=== PATIENT | male | born 1960 | race Caucasian/White ===

== ENCOUNTER 2024-11-28 16:33 | Inpatient (IN) | payer MEDICARE, MEDICAID, SELFPAY ==
[2024-11-28] VITALS (29 sets, daily range): BP systolic 60–162; BP diastolic 35–92; PULSE 77–140; RESP 9–24; TEMP 34.9–39; O2SAT 94–100; BMI 20.2
--- NOTE | ~2024-11-28 | CT_ITS ---
CLINICAL HISTORY: unresponsive CT head without contrast Comparison: None provided Findings: No intra-axial mass, midline shift, hydrocephalus, or acute hemorrhage. Age appropriate cerebral volume loss. Patchy low-density within the periventricular and subcortical white matter. The visualized paranasal sinuses and mastoid air cells are normal. The orbits are within normal limits. There is no acute fracture. IMPRESSION: 1. No acute intracranial findings. This document has been electronically signed by: Mc Miller MD on 11/28/2024 19:47:57
--- NOTE | ~2024-11-28 | XR_ITS ---
CLINICAL HISTORY: Postictal Chest radiograph, 1 view Comparison: CR - XR CHEST 1V - 11/28/24 17:50 EDT Findings: The cardiomediastinal silhouette is not enlarged. Pulmonary vascularity is mildly prominent. The bilateral perihilar and right basilar opacities have resolved. No focal consolidation or pleural effusion. No pneumothorax. The right central line and endotracheal tube have been removed. IMPRESSION: Mild pulmonary vascular congestion without focal consolidation. This document has been electronically signed by: Esteban Hitchcock DO on 12/08/2024 12:57:50
--- NOTE | ~2024-11-28 | XR_ITS ---
CLINICAL HISTORY: central line 1 view chest x-ray Comparison: CR - XR CHEST 1V - 11/28/24 16:56 EDT Findings: Right-sided central venous catheter, tip of which is in the mid SVC. ETT tip is 73 mm above the mag. Mild diffuse bilateral perihilar reticulonodular opacity. Normal size heart. No acute fracture. IMPRESSION: Mild atypical pneumonia. This document has been electronically signed by: Mc Miller MD on 11/28/2024 18:12:23
--- NOTE | ~2024-11-28 | CT_ITS ---
CLINICAL HISTORY: Seizure dis CT head without contrast Comparison: CT/SR - CT HEAD/BRAIN WO IV CON - 11/28/24 18:57 EDT Findings: No acute intracranial hemorrhage or midline shift. The mae-white matter differentiation is maintained. Bilateral carotid siphon and vertebral artery calcifications. Mild generalized cerebral involutional change with similar relative colpocephaly. Mild burden chronic small-vessel white matter ischemic change. The paranasal sinuses and mastoid air cells are clear. Left worse than right external auditory canal cerumen/debris. The calvarium is intact. IMPRESSION: No acute intracranial findings. This document has been electronically signed by: Esteban Hitchcock DO on 12/08/2024 13:06:11
--- NOTE | ~2024-11-28 | XR_ITS ---
CLINICAL HISTORY: Pneumonia 1 view chest x-ray Comparison: CR - XR CHEST 1V - 11/28/24 17:50 EDT Findings: ETT tip is 8 cm above the mag. Mild diffuse perihilar reticulonodular opacity. Normal size heart. No acute fracture. IMPRESSION: 1. High ETT. 2. Mild atypical pneumonia. This document has been electronically signed by: Mc Miller MD on 11/28/2024 18:13:28
--- NOTE | ~2024-11-28 | IR_ITS ---
CLINICAL HISTORY: IV antibiotics PROCEDURES: 1. Real-time ultrasound-guided access into the left basilic vein after documentation of selected vessel patency, and permanent imaging storing in the patient record. 2. Placement of a 5 fr 15 cm, dual lumen midline CLINICIANS: Jonas Barreto NP MEDICATIONS: -Lidocaine 1% 2 mL SQ. -Antibiotics: None. Complications: None. Estimated blood loss: <5 ml Specimens: None. Contrast: None. Fluoroscopy time: 0.5 min Procedure note: The procedure, risks, benefits, and alternatives were carefully explained to the patient and written informed consent was obtained. The patient was placed supine on the fluoroscopy table. A timeout was performed. The left arm was prepped and draped in usual sterile fashion. Using ultrasound and fluoroscopic guidance, venous access was achieved into the basilic vein with a micropuncture set. A peel-away sheath was advanced over the wire. The 0.018 inch wire was advanced into the subclavian vein. A 5 fr, 15 cm, dual lumen midline was advanced over the wire, with its tip in the axilla. The wire was removed. The catheter was tested and secured with a StatLock dressing. A permanent fluoroscopic image was saved to PACS. The patient was stable after the procedure and was transferred to the floor. FINDINGS: 1. Patent left basilic vein 2. Placement of a 5 fr 15 cm, dual lumen midline IR/IR midline placement IMPRESSION: Placement of a 5 fr 15 cm, dual lumen midline PLAN: -The catheter may be used immediately. This procedure was performed by Jonas Barreto NP, and directly supervised by Jassi Ashraf M.D. Electronically signed by: Jassi Ashraf MD 12/10/2024 05:07 PM EDT Workstation: [id number]
--- NOTE | ~2024-11-28 | CT_ITS ---
CLINICAL HISTORY: ?pneumonia CT chest without contrast Comparison: None provided Findings: The heart size is normal. Calcification of the coronary vasculature. Thyroid is not seen. Moderate multifocal patchy bilateral lower lobe predominant airspace opacity. Scattered ill-defined nodular densities. For example, within the right upper lobe anteriorly there is a 5 mm nodule (image 70). The upper abdomen is unremarkable. Severe acute on chronic appearing T8 compression fracture. IMPRESSION: 1. Bilateral pneumonia. 2. Multifocal nodular densities, possibly indicating focal pneumonitis. Follow up chest CT in 3 months is recommended to ensure resolution and exclude underlying malignancy. 3. Coronary artery disease. 4. T8 compression fracture as above. This document has been electronically signed by: Mc Miller MD on 11/28/2024 19:52:09
--- NOTE | ~2024-11-28 | CT_ITS ---
CLINICAL HISTORY: sepsis CT abdomen and pelvis without contrast Comparison: None provided Findings: Bilateral lower lobe airspace disease. Calcification of the coronary vasculature. Gallbladder is within normal limits. Moderate bilateral renal atrophy. Mild bilateral hydronephrosis and ureteral dilatation. No urolithiasis. Solid organs are otherwise within normal limits. No bowel obstruction, pneumoperitoneum, or pneumatosis. Heaton catheter is present. Appendix is distended measuring 13 mm without surrounding fat stranding. The bones are intact. IMPRESSION: 1. Dilated appendix without surrounding fat stranding. Findings could indicate atypical appearance of acute appendicitis versus appendiceal mucocele. 2. Bilateral hydronephrosis and ureteral dilatation without urinary tract calcification. Urologic consultation recommended. 3. Bibasilar pneumonia. This document has been electronically signed by: Mc Miller MD on 11/28/2024 19:54:20
[2024-11-28] MEDS: SODIUM CHLORIDE 1974 ML IV (16:39)
[2024-11-28] MEDS: Ketamine HCl/NS 50 MG/5 ML SYRINGE 100 MG IVPUSH (16:41)
[2024-11-28 16:43] LABS: Glucose, Whole Blood 144 mg/dL (60-115)
--- NOTE | 2024-11-28 16:45 | PC.NURSE ---
Addendum entered by Adele Bailey RN 11/28/24 18:28: vent settings on acvc 24/360/50 100% oxygen and 13 of peep Original Note: pt intubated with at 7.5mm et tube and 24 at the lip current bp 81/42, hr 130 r 22 96% while being bagged
[2024-11-28] MEDS: fentaNYL citrate/NS 1,000 MCG/100 ML PLAST..BAG 5 MCG IVCONT (17:01)
--- NOTE | 2024-11-28 17:16 | ED.SOB ---
HPI - SOB/Dyspnea General Chief Complaint: Dyspnea Stated Complaint: 70/40 [place] Unresponsive GCS $ Time Seen by Provider: 11/28/24 16:46 Source: EMS Mode of arrival: EMS History of Present Illness HPI Narrative: This is 64 years old the patient brought in in acute respiratory distress from the alf unable to give any history he was hypotensive with a blood pressure 63/36 febrile and tachypneic he was intubated at arrival with RS Melanie. Looking through the medical record at the alf he has a history of UTI history of COPD history of schizoaffective disorder history of adrenal insufficiency MD elicited complaint: shortness of breath Pertinent past history: COPD Onset (ago): hour(s) (1) Timing: constant Severity: severe Exacerbating factors: nothing Relieving factors: nothing Known history of: COPD Related Data Home Medications ?Medication ?Instructions ?Recorded ?Confirmed acetaminophen 325 mg rectal 325 mg KS Q4H PRN Constipation 11/28/24 11/28/24 suppository acetaminophen 325 mg tablet 975 mg PO Q6H PRN Pain 11/28/24 11/28/24 albuterol sulfate 90 mcg/actuation 2 puff inhalation Q6H PRN 11/28/24 11/28/24 aerosol inhaler (Ventolin HFA) Shortness Of Breath Or Wheezing aspirin 81 mg tablet,delayed 81 mg PO DAILY 11/28/24 11/28/24 release azithromycin 250 mg tablet 250 mg PO DAILY 11/28/24 11/28/24 azithromycin 250 mg tablet 500 mg PO DAILY 11/28/24 11/28/24 benztropine 0.5 mg tablet 0.5 mg PO BID 11/28/24 11/28/24 bisacodyl 10 mg rectal suppository 10 mg KS DAILY PRN Constipation 11/28/24 11/28/24 ceftriaxone 1 gram solution for 1 g IM DAILY 11/28/24 11/28/24 injection divalproex 500 mg tablet,delayed 1,000 mg PO BID 11/28/24 11/28/24 release doxycycline hyclate 100 mg capsule 100 mg PO BID 11/28/24 11/28/24 famotidine 20 mg tablet 20 mg PO DAILY 11/28/24 11/28/24 haloperidol 5 mg tablet 15 mg PO TID 11/28/24 11/28/24 hydrocortisone 5 mg tablet 15 mg PO BEDTIME 11/28/24 11/28/24 hydrocortisone 5 mg tablet 15 mg PO DAILY 11/28/24 11/28/24 ipratropium 0.5 mg-albuterol 3 mg 3 ml inhalation Q6H PRN Shortness 11/28/24 11/28/24 (2.5 mg base)/3 mL nebulization Of Breath Or Wheezing soln levothyroxine 150 mcg tablet 150 mcg PO DAILY@0600 11/28/24 11/28/24 liothyronine 5 mcg tablet 5 mcg PO DAILY 11/28/24 11/28/24 lorazepam 0.5 mg tablet 0.5 mg PO TID 11/28/24 11/28/24 magnesium hydroxide 400 mg/5 mL 30 ml PO DAILY PRN Constipation 11/28/24 11/28/24 oral suspension (Milk of Magnesia) naloxone 0.4 mg/mL injection 0.4 mg subcut Q2M PRN Opiate 11/28/24 11/28/24 solution Reversal naloxone 4 mg/actuation nasal spray 4 mg intranasal Q3M PRN Opiate 11/28/24 11/28/24 Reversal simvastatin 5 mg tablet 5 mg PO BEDTIME 11/28/24 11/28/24 sodium phosphates 19 gram-7 118 ml KS DAILY PRN Constipation 11/28/24 11/28/24 gram/118 mL enema (Fleet Enema) thiamine HCl (vitamin B1) 100 mg 100 mg PO DAILY 11/28/24 11/28/24 tablet trazodone 50 mg tablet 25 mg PO BID 11/28/24 11/28/24 Allergies Allergy/AdvReac Type Severity Reaction Status Date / Time amprenavir Allergy Unknown Verified 11/28/24 16:55 cephaloridine Allergy Unknown Verified 11/28/24 16:55 clozapine Allergy Unknown Verified 11/28/24 16:55 Penicillins Allergy Unknown Verified 11/28/24 16:55 Phenothiazines Allergy Unknown Verified 11/28/24 16:55 Sulfa (Sulfonamide Allergy Unknown Verified 11/28/24 16:55 Antibiotics) Review of Systems Review of Systems: Yes Unobtainable due to mental condition PMFSH Past Medical History PMFSH Narrative: History of COPD urinary tract infection chronic kidney disease schizoaffective disorder Social History Social History Household Members: Other Housing: Group Home Do you presently have visiting nurse or other home services: Yes Patient Tobacco Use Status: Tobacco use Unknown Physical Exam Exam: Exam: Patient is in severe respiratory distress Vital Signs: Vital Signs: Last Vital Signs Temp 99.0 F 11/29/24 05:53 Pulse 63 11/29/24 05:53 Resp 24 H 11/29/24 05:53 BP 116/54 L 11/29/24 05:53 Pulse Ox 93 11/29/24 05:53 O2 Del Method Mechanical Ventil ation 11/29/24 05:53 O2 Flow Rate 100 11/28/24 18:30 FiO2 24 11/29/24 05:53 BMI result Body Mass Index 20.2 Const: General: other (Respiratory distress) HEENT: Head: Yes normal to inspection General nose exam: Normal external nose present Mouth: Normal oral and palatal mucosa present Neck: Neck: Yes normal visual inspection Chest: Chest palpation & inspection: normal inspection of the chest Resp: Effort & Inspection: abnormal respiratory pattern Auscultation: rhonchi Cardio: Other: Tachycardic GI: Inspection: Yes normal to inspection Neuro: Other: unresponsive Course Reevaluation(s) Reevaluation #1: focus sepsis reexam done COr RRR,Lungs decrease breath sound,decrease capillary refill.Remain on levophed Pt was seen by tree and shrub worker in ED Time: 17:50 Medications Administered Generic Name Dose Route Start Last Admin Trade Name Freq PRN Reason Stop Dose Admin Famotidine 20 mg 11/28/24 21:00 11/28/24 20:46 Famotidine/Pf 20 Mg/2 Ml Vial IVPUSH 20 mg BID NIDIA Administration Heparin Sodium (Porcine) 5,000 unit 11/28/24 17:30 11/29/24 00:54 Heparin Sodium,Porcine 5,000 Unit/Ml Vial SUBCUT 5,000 unit Q8H NIDIA Administration Hydrocortisone Sodium Succinate 100 mg 11/28/24 17:45 11/29/24 00:54 Hydrocortisone Sod Succ/Pf 100 Mg Vial IVPUSH 100 mg Q8H NIDIA Administration Fentanyl 1,000 mcg in 100 mls @ 0 mls/hr 11/28/24 17:00 11/29/24 04:15 Sublimaze/Ns IVCONT 75 mcg/hr .Q0M NIDIA 7.5 mls/hr Protocol Titration Per Protocol Ketamine HCl 500 mg/ Sodium 255 mls @ 13.423 mls/hr 11/28/24 17:45 11/28/24 20:56 Chloride IVCONT 0.4 mg/kg/hr .Q19H NIDIA 13.42 mls/hr Protocol Infusion 0.4 MG/KG/HR Norepinephrine Bitartrate 8 mg in 250 mls @ 0 mls/hr 11/28/24 17:45 11/29/24 04:30 Levophed IVCONT 0.01 mcg/kg/min .Q0M NIDIA 1.23 mls/hr Protocol Titration Per Protocol Lactated Ringer's 1,000 mls @ 100 mls/hr 11/28/24 20:15 11/29/24 05:15 Lr IVCONT 100 mls/hr .Q10H NIDIA Administration Discontinued Medications Generic Name Dose Route Start Last Admin Trade Name Freq PRN Reason Stop Dose Admin Fentanyl 100 mcg 11/28/24 16:52 11/28/24 16:53 Fentanyl Citrate/Pf 100 Mcg/2 Ml Vial IVPUSH 11/28/24 16:53 100 mcg ONCE ONE Administration Protocol Hydrocortisone Sodium Succinate 100 mg 11/28/24 17:18 11/28/24 17:27 Hydrocortisone Sod Succ/Pf 100 Mg Vial IVPUSH 11/28/24 17:19 100 mg ONCE ONE Administration Sodium Chloride 1,974 mls @ 1,974 mls/hr 11/28/24 16:56 11/28/24 18:01 Ns 30 ml/kg infuse over 1 hr (1974 ml) 11/28/24 17:55 Infused IV Infusion .Q1H STA Ketamine HCl 100 mg 11/28/24 18:03 11/28/24 16:41 Ketamine Hcl/Ns 50 Mg/5 Ml Syringe IVPUSH 11/28/24 18:04 100 mg ONCE ONE Administration Meropenem 1 gm 11/28/24 16:56 11/28/24 17:10 Meropenem 1 Gm Vial IVPUSH 11/28/24 16:57 1 gm ONCE ONE Administration Meropenem 500 mg 11/29/24 02:00 11/29/24 01:41 Meropenem 500 Mg Vial IVPUSH 11/29/24 02:01 500 mg Q8H NIDIA Administration Midazolam HCl 4 mg 11/28/24 18:03 11/28/24 17:34 Midazolam Hcl 2 Mg/2 Ml Vial IVPUSH 11/28/24 18:04 4 mg ONCE ONE Administration Rocuronium [place] 50 mg 11/28/24 18:03 11/28/24 17:03 Rocuronium [place] 50 Mg/5 Ml Vial IVPUSH 11/28/24 18:04 50 mg ONCE ONE Administration Succinylcholine Chloride 100 mg 11/28/24 18:03 11/28/24 16:42 Succinylcholine Chloride 200 Mg/10 Ml Vial IVPUSH 11/28/24 18:04 100 mg ONCE ONE Administration Medical Decision Making Medical Decision Making [facility] Narrative: Patient was intubated out of the arrival septic workup was started IV antibiotic and administer IV cortisone given fluid resuscitation started Differential Diagnosis Differential Diagnoses: The differential diagnosis associated with the presentation includes Pneumonia/sepsis/UTI Admission/Observation Consideration of admission/observation: Escalation of care including admission/observation considered Consult Healthcare Provider ICU attending Lab Data [facility] Lab Attestation statement: I reviewed the patient's lab results. 11/29/24 04:13 11/29/24 04:13 Labs: Lab Results 11/28/24 11/28/24 11/28/24 Range/Units 16:39 17:07 17:11 WBC 19.7 H (4.8-10.8) X10*3/uL RBC 3.72 L (4.60-5.80) X10*6/uL Hgb 10.5 L (14.0-18.0) g/dl Hct 34.2 L (42.0-52.0) % MCV 91.9 (80.0-98.0) fL MCH 28.2 (27.0-33.0) pg MCHC 30.7 L (31.0-36.0) g/dl RDW 17.6 H (11.0-16.0) % Plt Count 326 (160-400) X10*3/uL MPV 9.4 (9.4-12.4) fL Immature Gran % (Auto) 0.6 H (0.0-0.4) % Neut % (Auto) 76.7 H (45-73) % Lymph % (Auto) 10.7 L (20-40) % [place] % (Auto) 11.2 H (2-11) % Eos % (Auto) 0.2 (0-4) % Baso % (Auto) 0.6 (0-2) % Lymph # (Auto) 2.1 (1.2-4.9) X10*3/uL [place] # (Auto) 2.2 H (0.1-1.2) X10*3/uL Eos # (Auto) 0.0 (0.0-0.4) X10*3/uL Baso # (Auto) 0.1 (0.0-0.2) X10*3/uL Abs Immat Gran (auto) 0.12 H (0.00-0.03) X10*3/uL Absolute Neuts (auto) 15.1 H (2.0-8.3) x10*3/uL Absolute Nucleated RBC 0.000 (0.0-0.012) X10*3/uL Nucleated RBC % (auto) 0.0 (0.0-0.2) /100WBC O2 Saturation % ABG pH at Pt Temp (7.35-7.45) ABG pCO2 at Pt Temp (32-45) mmHg ABG pO2 at Pt Temp (83-108) mmHg ABG HCO3 (22-26) mmol/L ABG Base Excess (Actual) mmol/L Sodium 142 (135-145) mmol/L Potassium 5.3 H (3.3-5.1) mmol/L Chloride 107 (96-108) mmol/L Carbon Dioxide 20 L (22-29) mmol/L Anion Gap 20 (12-20) BUN 41 H (9-16) mg/dL Creatinine 2.45 H (0.5-1.4) mg/dL Estim Creat Clear Calc 27.9 Estimated GFR 27 POC Glucose 144 H (60-115) mg/dL Random Glucose 132 H (60-115) mg/dL Lactic Acid 2.7 H* (0.5-2.0) mmol/L Calcium 8.6 (8.4-10.2) mg/dL Phosphorus 5.2 H (2.7-4.5) mg/dL Total Bilirubin 0.4 (0.0-1.0) mg/dL AST 50 H (5-37) U/L ALT 8 (0-40) U/L Alkaline Phosphatase 69 (39-117) U/L Troponin I High Sens 10.3 (<3.5-35.0) ng/L Total Protein 7.3 (6.5-8.0) g/dL Albumin 3.6 (3.5-5.0) g/dL 11/28/24 Range/Units 17:17 WBC (4.8-10.8) X10*3/uL RBC (4.60-5.80) X10*6/uL Hgb (14.0-18.0) g/dl Hct (42.0-52.0) % MCV (80.0-98.0) fL MCH (27.0-33.0) pg MCHC (31.0-36.0) g/dl RDW (11.0-16.0) % Plt Count (160-400) X10*3/uL MPV (9.4-12.4) fL Immature Gran % (Auto) (0.0-0.4) % Neut % (Auto) (45-73) % Lymph % (Auto) (20-40) % [place] % (Auto) (2-11) % Eos % (Auto) (0-4) % Baso % (Auto) (0-2) % Lymph # (Auto) (1.2-4.9) X10*3/uL [place] # (Auto) (0.1-1.2) X10*3/uL Eos # (Auto) (0.0-0.4) X10*3/uL Baso # (Auto) (0.0-0.2) X10*3/uL Abs Immat Gran (auto) (0.00-0.03) X10*3/uL Absolute Neuts (auto) (2.0-8.3) x10*3/uL Absolute Nucleated RBC (0.0-0.012) X10*3/uL Nucleated RBC % (auto) (0.0-0.2) /100WBC O2 Saturation 100.0 % ABG pH at Pt Temp 7.34 L (7.35-7.45) ABG pCO2 at Pt Temp 40 (32-45) mmHg ABG pO2 at Pt Temp 151 H (83-108) mmHg ABG HCO3 22 (22-26) mmol/L ABG Base Excess (Actual) -3.0 mmol/L Sodium (135-145) mmol/L Potassium (3.3-5.1) mmol/L Chloride (96-108) mmol/L Carbon Dioxide (22-29) mmol/L Anion Gap (12-20) BUN (9-16) mg/dL Creatinine (0.5-1.4) mg/dL Estim Creat Clear Calc Estimated GFR POC Glucose (60-115) mg/dL Random Glucose (60-115) mg/dL Lactic Acid (0.5-2.0) mmol/L Calcium (8.4-10.2) mg/dL Phosphorus (2.7-4.5) mg/dL Total Bilirubin (0.0-1.0) mg/dL AST (5-37) U/L ALT (0-40) U/L Alkaline Phosphatase (39-117) U/L Troponin I High Sens (<3.5-35.0) ng/L Total Protein (6.5-8.0) g/dL Albumin (3.5-5.0) g/dL Independent Interpretation I performed an independent interpretation of an: Plain X-Ray Interpretation: ET tube in good position pneumonia Independent Historian Clinical information obtained from an independent historian. History obtained from or confirmed by: EMS and Other External Record Review External record reviewed: Other half-way record Prescription Management I considered prescription management with: Antibiotic Chronic Conditions COPD Procedures Central Line Placement Right IJ: Time Out Performed: Yes Patient Placed on Monitor/Pulse Ox: Yes MD Prep: mask and gloves Central Line Prep: Povidone-Iodine 1% Ultrasound Used for Placement: Yes Central Line Lumen Inserted: triple Post Procedure: sutured in place Post Procedure X-Ray: tip of catheter in good position Patient Tolerated Procedure: well Complications: none Intubation Intubation Type:: Emergency Endotracheal Intubation Intubation Date:: 11/28/24 Intubation Time:: 17:23 Time out performed: Yes sedative: Ketamine paralytic: Succinylcholine Laryngoscope: Ella ET Tube Size: 7.5 ET Tube Uncuffed: No Tube Placement Confirmation: visualized tube passing through cords and equal breath sounds bilaterally Patient Tolerated Procedure: well Intubation Complications: none Critical Care Time Critical Care Time Critical Care Time: Yes Total Critical Care Time: 60 Attestation: taking care of the pt sepsis respiratory failure Discharge Plan Discharge Clinical Impression: Septic shock, Acidosis, lactic Respiratory failure Qualifiers: Chronicity: acute Respiratory failure complication: hypoxia Qualified Code(s): J96.01 - Acute respiratory failure with hypoxia Acute renal failure Qualifiers: Acute renal failure type: unspecified Qualified Code(s): N17.9 - Acute kidney failure, unspecified Bilateral pneumonia Qualifiers: Pneumonia type: due to unspecified organism Lung location: unspecified part of lung Qualified Code(s): J18.9 - Pneumonia, unspecified organism Patient Disposition: Admitted As Inpatient Interventions: Admission Worksheet (ED) Last Done: 11/28/24 19:17 Discharge Date/Time: 11/28/24 19:19
[2024-11-28 17:20] LABS: Hematocrit 34.2 % (42.0-52.0); Hemoglobin 10.5 g/dl (14.0-18.0); Imm Gran Abs Auto 0.12 X10*3/uL (0.00-0.03); Imm Gran Pct Auto 0.6 % (0.0-0.4); Lymphocytes Absolute Auto 2.1 X10*3/uL (1.2-4.9); Mean Corpuscular HGB Conc 30.7 g/dl (31.0-36.0); Mean Corpuscular Hemoglobin 28.2 pg (27.0-33.0); Mean Corpuscular Volume 91.9 fL (80.0-98.0); NRBC Abs Auto 0.000 X10*3/uL (0.0-0.012); NRBC Pct Auto 0.0 /100WBC (0.0-0.2); Platelet Count 326 X10*3/uL (160-400); Red Blood Count 3.72 X10*6/uL (4.60-5.80); SCAN SMEAR FLAG 1; White Blood Count 19.7 X10*3/uL (4.8-10.8)
[2024-11-28 17:22] LABS: ABG HCO3 22 mmol/L (22-26); ABG O2 % Saturation 100.0 %
[2024-11-28] MEDS: Hydrocortisone Sod Succ/PF 100 MG VIAL IVPUSH (17:27)
--- NOTE | 2024-11-28 17:32 | P.HPCC_ITS ---
History of Present Illness Date of Service: 11/28/24 Chief Complaint: altered sensorium 64-year-old gentleman with past medical history of COPD, hypertension/hypocortisolism (not sure which one, patient is on hydrocortisone) living in a assisted with risk of aspiration was found to have UTI, started on ceftriaxone 1g yesterday was found hypotensive and altered sensorium is transferred to ED where he was intubated and placed on ventilator support. Hypotensive started on levophed support. Difficulty in oxygenation. MICU consulted for adission. Review of Systems 2 Review of Systems: unable to obtain as patient is intubated [facility] Social History Social History Advance Directives: No Advance Directives Information Provided: No Meds Allergies Allergy/AdvReac Type Severity Reaction Status Date / Time amprenavir Allergy Unknown Verified 11/28/24 16:55 cephaloridine Allergy Unknown Verified 11/28/24 16:55 clozapine Allergy Unknown Verified 11/28/24 16:55 Penicillins Allergy Unknown Verified 11/28/24 16:55 Phenothiazines Allergy Unknown Verified 11/28/24 16:55 Sulfa (Sulfonamide Allergy Unknown Verified 11/28/24 16:55 Antibiotics) Active Medications: Current Medications Famotidine (Famotidine/Pf 20 Mg/2 Ml Vial) 20 mg IVPUSH BID NIDIA Heparin Sodium (Porcine) (Heparin Sodium,Porcine 5,000 Unit/Ml Vial) 5,000 unit SUBCUT Q8H NIDIA Fentanyl (Sublimaze/Ns) 1,000 mcg in 100 mls @ 0 mls/hr IVCONT .Q0M NIDIA; Protocol Last Titration: 11/28/24 17:16 Dose: 75 mcg/hr, 7.5 mls/hr Sodium Chloride (Ns) 1,974 mls @ 1,974 mls/hr 30 ml/kg infuse over 1 hr (1974 ml) IV .Q1H STA Stop: 11/28/24 17:55 Last Admin: 11/28/24 16:39 Dose: 1,974 mls/hr Ketamine HCl 500 mg/ Sodium (Chloride) 255 mls @ 6.712 mls/hr IVCONT .Q24H NIDIA; Protocol Meropenem (Meropenem 500 Mg Vial) 500 mg IVPUSH Q8H NIDIA Naloxone HCl (Naloxone Hcl 0.4 Mg/Ml Vial) 0.2 mg IVPUSH Q2M PRN PRN Reason: Excessive sedation or RR < 8 Ondansetron HCl (Ondansetron Hcl 4 Mg/2 Ml Vial) 4 mg IVPUSH Q8H PRN PRN Reason: Nausea and Vomiting Physical Exam 2 Vital Signs: Vital Signs: Last Vital Signs Temp 102.2 F H 11/28/24 16:48 Pulse 89 11/28/24 17:16 Resp 9 L 11/28/24 17:16 BP 90/55 L 11/28/24 17:16 Pulse Ox 98 11/28/24 17:16 O2 Del Method Room Air 11/28/24 16:48 BMI result Body Mass Index 20.2 General: Elderly male acute distress, ill appearing and tired appearing Nutritional Appearance: well nourished and overweight Eyes: appearance normal, both eyes and all related structures; Alignment and Position: alignment normal and position normal Neck: No lymphadenopathy, no thyromegaly Resp: bilateral air entry equal, occasional added sounds present Cardio: Regular rate, regular rhythm; Heart sounds: S1 normal heart sound present and S2 normal heart sound present GI: soft, nontender, no guarding, no hepatosplenomegaly : bladder normal to inspection, bladder normal to palpation, no renal angle tenderness Skin: no rashes or lesions noted and elasticity normal Neuro: Unable to do as patient is paralyzed for intubation Results Labs 11/28/24 17:11 11/28/24 17:07 Labs: Laboratory Results - last 24 hr 11/28/24 11/28/24 16:39 17:17 O2 Saturation 100.0 ABG pH at Pt Temp 7.34 L ABG pCO2 at Pt Temp 40 ABG pO2 at Pt Temp 151 H ABG HCO3 22 ABG Base Excess (Actual) -3.0 POC Glucose 144 H Assessment and Plan (1) Septic shock: Status: Acute (2) Respiratory failure: Qualifiers: Chronicity: acute Respiratory failure complication: hypoxia Qualified Code(s): J96.01 - Acute respiratory failure with hypoxia Status: Acute (3) Acute encephalopathy: Status: Acute (4) COPD exacerbation: Status: Acute Plan Neuro: Acute encephalopathy possibly due to metabolic encephalopathy We will do ketamine for sedation as patient is hypotensive, as needed fentanyl for analgesia. We will get a CT of the head to rule out any intracranial pathology Close neurological status monitoring in the ICU every hour Cardiac: Septic Shock: Possibly secondary to urinary tract infection On Levophed support, titrate Levophed to keep map above 65 mm Hg Respiratory: Acute hypoxemic respiratory failure due to COPD exacerbation Currently on ventilator support On PRVC mode FiO2 100%, PEEP 13, TV 360, RR 20 Peak pressures and plateau pressures are under the curve. Peak pressure is 32, plateau pressures 21 Ventilator management bundle with head end elevation, aspiration precaution, chlorhexidine mouthwash, daily awakening trials, daily spontaneous breathing trials GI: We will start on tube feeds tomorrow Renal: Lab still pending We will closely monitor I's and O's Avoid nephrotoxic medications Heme: Chronic anemia, closely monitor H&H, transfuse for hemoglobin less than 7 grams/deciliter Endocrine: Blood sugars under control Sliding scale insulin as needed Infectious disease: We will send pancultures We will start on empiric meropenem and we will get MRSA nares if positive we will add vancomycin Musculoskeletal: Decubitus ulcer prevention protocol Lines: Peripheral Prophylaxis: Famotidine, heparin Critical care time spent is about 60 minutes on evaluation and admission at this critically ill patient with multiple organ failure to medical ICU. Post intubation management, managing his oxygenation, close hemodynamic monitoring, vasopressor management, sedation management, review of labs and images at this time is excluding any procedural time
[2024-11-28] MEDS: Ketamine HCl 500 MG in 0.9 % Sodium Chloride 250 ML 6.71 MG IVCONT (17:36)
[2024-11-28 17:42] LABS: Troponin-I High Sensitivity 10.3 ng/L (<3.5-35.0)
[2024-11-28 17:43] LABS: MANUAL DIFF FLAG NO
--- NOTE | 2024-11-28 17:44 | PC.NURSE ---
dr cormier putting in a 20cm triple lumen central line on the right juglar area
[2024-11-28 17:57] LABS: Alanine Aminotransferase 8 U/L (0-40); Albumin Level 3.6 g/dL (3.5-5.0); Alkaline Phosphatase 69 U/L (39-117); Anion Gap 20 (12-20); Aspartate Amino Transferase 50 U/L (5-37); Blood Urea Nitrogen 41 mg/dL (9-16); Calcium 8.6 mg/dL (8.4-10.2); Carbon Dioxide 20 mmol/L (22-29); Chloride 107 mmol/L (96-108); Creatinine Clr Calc Pharmacy 27.9; Estimated Glomerular Filt Rate 27; Potassium 5.3 mmol/L (3.3-5.1); Sodium 142 mmol/L (135-145); Total Protein 7.3 g/dL (6.5-8.0)
--- NOTE | 2024-11-28 18:00 | PC.NURSE ---
attempted the og tube multiple times unable to advance , dr cormier also attempted still unable to place the og tube pt does have a chronic mahoney in place, urine bag changed but no urine production at this time
--- NOTE | 2024-11-28 18:38 | PC.NURSE ---
report given to lino turcios in icu
--- NOTE | 2024-11-28 19:04 | PHA.MEDREC ---
Addendum entered by Devon Campa PharmD 11/28/24 19:07: reviewed Original Note: Pharmacy Consult ? Medication Reconciliation Pharmacy has completed the medication reconciliation. Utilized list from [facility] to confirm med list.
[2024-11-28 19:15] LABS: Reflex Lactate? Lactic Acid Added
[2024-11-28 19:46] LABS: ~Lactic Acid-LAB USE ONLY 1.5 mmol/L (0.5-2.0)
[2024-11-28 20:02] LABS: Appearance Urine Turbid; Glucose Urine UA Negative (Negative); PH 5.5 (5.0-9.0); Specific Gravity - Urine 1.020 (1.005-1.025); UMIC TRIGGER UACC YES
[2024-11-28 20:18] LABS: UACC Culture Trigger YES
[2024-11-28] MEDS: Lactated Ringers 1,000 ML 100 ML IVCONT (20:27)
--- NOTE | 2024-11-28 20:40 | PM.CCN ---
Critical Care Event Note Summary Date of Service: 11/28/24 Code activated: No Narrative: This case had a high probability of a clinically significant, sudden, or life threatening deterioration of this patient's condition which required my full and direct attention, intervention and personal management. Critical Care Time (minutes): 30 Comment: 20:05 64-year-old jail patient who was admitted earlier on by Dr. Gonzales ( please see his note for details) in the setting of septic shock, UTI, TRAY was intubated in the emergency room and subsequently transported to the ICU currently on ketamine, fentanyl and Levophed. Who received 2 L of IV fluids and meropenem and vancomycin. At 2000 p.m., CT abdomen and pelvis report was called with significant findings as follows: IMPRESSION: 1. Dilated appendix without surrounding fat stranding. Findings could indicate atypical appearance of acute appendicitis versus appendiceal mucocele. 2. Bilateral hydronephrosis and ureteral dilatation without urinary tract calcification. Urologic consultation recommended. 3. Bibasilar pneumonia. The patient remains hemodynamically stable while on pressors, urine production is scant, bladder scan reveals no retention and or obstruction. LR at 100 cc an hour started. A consult to General surgery and urologist on-call was placed at this time. the patient has a guardian Ms. Vane Cordova [phone] who is aware of the patient's current clinical scenario, she easy legal guardian and has known the patient for over 40 years. 2032, I spoke to the urologist Dr. Rob Clemons who will see the patient in the morning, findings on the CT were reviewed and the clinical scenario of the patient was discussed in detail. 2039 case discussed briefly with Dr. Szymanski general surgeon on-call who will see the patient shortly. 2099 Dr. Szymanski saw the patient, no need for surgical intervention at this point, continue with medical treatment (antibiotics). Critical care time used for critical evaluation of this patient, diagnosis, treatment and coordination of care, review her records and documentation TOTAL CRITICAL CARE TIME 30 MIN . discussion and coordination with consultants, completely separate from any procedures performed. . Patient's care was discussed in detail with Dr. Gonzales. He is aware of all the above as well as the plan of care for this patient..
[2024-11-28 21:06] LABS: MRSA Nasal PCR NEGATIVE (Negative); SA Nasal PCR NEGATIVE (Negative)
--- NOTE | 2024-11-28 21:11 | PM.CNGS ---
History of Present Illness Consult details Consult date: 11/28/24 Narrative: 64-year-old male patient, resident of group home presenting with acute respiratory distress, hypotension, tachycardia, fever presented to the emergency department with a blood pressure of 63/36. Patient was intubated in the emergency department. Patient apparently has a history of urinary tract infection, COPD, schizoaffective disorder and adrenal insufficiency. Patient was resuscitated in the emergency department and transferred to the ICU in his currently on Levophed and sedation, intubated on the vent. A CT of the chest revealed bilateral pneumonia, multifocal nodular densities, possibly indicating focal pneumonitis, coronary artery disease and TA compression fracture. CT abdomen and pelvis reveals a dilated appendix without surrounding fat stranding which could indicate atypical appearance of acute appendicitis versus appendiceal mucocele. Bilateral hydronephrosis and ureteral dilatation without urinary tract calcification is noted. Gallbladder is within normal limits. Solid organs are otherwise within normal limits and no bowel obstruction, hemoperitoneum or pneumatosis is identified. Surgical consultation was requested for evaluation of possible acute appendicitis as the cause of the septic shock. Review of Systems Review of Systems: Yes unobtainable due to endotracheal tube Meds Allergies Allergy/AdvReac Type Severity Reaction Status Date / Time amprenavir Allergy Unknown Verified 11/28/24 16:55 cephaloridine Allergy Unknown Verified 11/28/24 16:55 clozapine Allergy Unknown Verified 11/28/24 16:55 Penicillins Allergy Unknown Verified 11/28/24 16:55 Phenothiazines Allergy Unknown Verified 11/28/24 16:55 Sulfa (Sulfonamide Allergy Unknown Verified 11/28/24 16:55 Antibiotics) Active Medications: Current Medications Famotidine (Famotidine/Pf 20 Mg/2 Ml Vial) 20 mg IVPUSH BID NIDIA Last Admin: 11/28/24 20:46 Dose: 20 mg Heparin Sodium (Porcine) (Heparin Sodium,Porcine 5,000 Unit/Ml Vial) 5,000 unit SUBCUT Q8H NIDIA On Hold: 11/28/24 20:37 Last Admin: 11/28/24 20:37 Dose: Not Given Hydrocortisone Sodium Succinate (Hydrocortisone Sod Succ/Pf 100 Mg Vial) 100 mg IVPUSH Q8H NIDIA Last Admin: 11/28/24 18:27 Dose: Not Given Fentanyl (Sublimaze/Ns) 1,000 mcg in 100 mls @ 0 mls/hr IVCONT .Q0M NIDIA; Protocol Last Titration: 11/28/24 17:16 Dose: 75 mcg/hr, 7.5 mls/hr Ketamine HCl 500 mg/ Sodium (Chloride) 255 mls @ 13.423 mls/hr IVCONT .Q19H NIDIA; Protocol Last Infusion: 11/28/24 20:56 Dose: 0.4 mg/kg/hr, 13.42 mls/hr Norepinephrine Bitartrate (Levophed) 8 mg in 250 mls @ 0 mls/hr IVCONT .Q0M NIDIA; Protocol Last Titration: 11/28/24 17:40 Dose: 0.17 mcg/kg/min, 20.97 mls/hr Lactated Ringer's (Lr) 1,000 mls @ 100 mls/hr IVCONT .Q10H NIDIA Last Admin: 11/28/24 20:27 Dose: 100 mls/hr Meropenem (Meropenem 1 Gm Vial) 500 gm IVPUSH Q8H NIDIA Naloxone HCl (Naloxone Hcl 0.4 Mg/Ml Vial) 0.2 mg IVPUSH Q2M PRN PRN Reason: Excessive sedation or RR < 8 Ondansetron HCl (Ondansetron Hcl 4 Mg/2 Ml Vial) 4 mg IVPUSH Q8H PRN PRN Reason: Nausea and Vomiting Home Medications ?Medication ?Instructions ?Recorded ?Confirmed ?Last Taken ?Type acetaminophen 325 mg rectal 325 mg WV Q4H PRN Constipation 11/28/24 11/28/24 Unknown History suppository acetaminophen 325 mg tablet 975 mg PO Q6H PRN Pain 11/28/24 11/28/24 Unknown History albuterol sulfate 90 mcg/actuation 2 puff inhalation Q6H PRN 11/28/24 11/28/24 Unknown History aerosol inhaler (Ventolin HFA) Shortness Of Breath Or Wheezing aspirin 81 mg tablet,delayed 81 mg PO DAILY 11/28/24 11/28/24 Unknown History release azithromycin 250 mg tablet 250 mg PO DAILY 11/28/24 11/28/24 Unknown History azithromycin 250 mg tablet 500 mg PO DAILY 11/28/24 11/28/24 Unknown History benztropine 0.5 mg tablet 0.5 mg PO BID 11/28/24 11/28/24 Unknown History bisacodyl 10 mg rectal suppository 10 mg WV DAILY PRN Constipation 11/28/24 11/28/24 Unknown History ceftriaxone 1 gram solution for 1 g IM DAILY 11/28/24 11/28/24 Unknown History injection divalproex 500 mg tablet,delayed 1,000 mg PO BID 11/28/24 11/28/24 Unknown History release doxycycline hyclate 100 mg capsule 100 mg PO BID 11/28/24 11/28/24 Unknown History famotidine 20 mg tablet 20 mg PO DAILY 11/28/24 11/28/24 Unknown History haloperidol 5 mg tablet 15 mg PO TID 11/28/24 11/28/24 Unknown History hydrocortisone 5 mg tablet 15 mg PO BEDTIME 11/28/24 11/28/24 Unknown History hydrocortisone 5 mg tablet 15 mg PO DAILY 11/28/24 11/28/24 Unknown History ipratropium 0.5 mg-albuterol 3 mg 3 ml inhalation Q6H PRN Shortness 11/28/24 11/28/24 Unknown History (2.5 mg base)/3 mL nebulization Of Breath Or Wheezing soln levothyroxine 150 mcg tablet 150 mcg PO DAILY@0600 11/28/24 11/28/24 Unknown History liothyronine 5 mcg tablet 5 mcg PO DAILY 11/28/24 11/28/24 Unknown History lorazepam 0.5 mg tablet 0.5 mg PO TID 11/28/24 11/28/24 Unknown History magnesium hydroxide 400 mg/5 mL 30 ml PO DAILY PRN Constipation 11/28/24 11/28/24 Unknown History oral suspension (Milk of Magnesia) naloxone 0.4 mg/mL injection 0.4 mg subcut Q2M PRN Opiate 11/28/24 11/28/24 Unknown History solution Reversal naloxone 4 mg/actuation nasal spray 4 mg intranasal Q3M PRN Opiate 11/28/24 11/28/24 Unknown History Reversal simvastatin 5 mg tablet 5 mg PO BEDTIME 11/28/24 11/28/24 Unknown History sodium phosphates 19 gram-7 118 ml WV DAILY PRN Constipation 11/28/24 11/28/24 Unknown History gram/118 mL enema (Fleet Enema) thiamine HCl (vitamin B1) 100 mg 100 mg PO DAILY 11/28/24 11/28/24 Unknown History tablet trazodone 50 mg tablet 25 mg PO BID 11/28/24 11/28/24 Unknown History Physical Exam Vital Signs: Vital Signs: Last Vital Signs Temp 99.3 F 11/28/24 20:00 Pulse 83 11/28/24 20:00 Resp 24 H 11/28/24 20:00 BP 108/64 11/28/24 20:00 Pulse Ox 95 11/28/24 20:00 O2 Del Method Mechanical Ventil ation 11/28/24 20:00 O2 Flow Rate 100 11/28/24 18:30 FiO2 40 11/28/24 20:00 BMI result Body Mass Index 20.2 Const: Other: Intubated and sedated HEENT: Other: ETT in place, normocephalic, atraumatic Resp: Other: Breathing on vent GI: Other: Soft, nondistended, no apparent tenderness although patient is sedated, no palpable mass, no tympany to percussion, no guarding. Scar noted in lower midline suggestive of a prior suprapubic tube. Skin: Other: Warm, dry, multiple scars noted on upper extremities. Extrem: Other: As noted above multiple scars in the upper extremities, no erythema, large fingernails with clubbing. No edema noted in the lower extremities. Results Labs 11/28/24 17:11 11/28/24 17:07 Labs: Abnormal lab results 11/28/24 11/28/24 11/28/24 Range/Units 16:39 17:07 17:11 WBC 19.7 H (4.8-10.8) X10*3/uL RBC 3.72 L (4.60-5.80) X10*6/uL Hgb 10.5 L (14.0-18.0) g/dl Hct 34.2 L (42.0-52.0) % MCHC 30.7 L (31.0-36.0) g/dl RDW 17.6 H (11.0-16.0) % Immature Gran % (Auto) 0.6 H (0.0-0.4) % Neut % (Auto) 76.7 H (45-73) % Lymph % (Auto) 10.7 L (20-40) % Divide % (Auto) 11.2 H (2-11) % Divide # (Auto) 2.2 H (0.1-1.2) X10*3/uL Abs Immat Gran (auto) 0.12 H (0.00-0.03) X10*3/uL Absolute Neuts (auto) 15.1 H (2.0-8.3) x10*3/uL ABG pH at Pt Temp (7.35-7.45) ABG pO2 at Pt Temp (83-108) mmHg Potassium 5.3 H (3.3-5.1) mmol/L Carbon Dioxide 20 L (22-29) mmol/L BUN 41 H (9-16) mg/dL Creatinine 2.45 H (0.5-1.4) mg/dL POC Glucose 144 H (60-115) mg/dL Random Glucose 132 H (60-115) mg/dL Lactic Acid 2.7 H* (0.5-2.0) mmol/L Phosphorus 5.2 H (2.7-4.5) mg/dL AST 50 H (5-37) U/L Urine Protein (Neg-Trace) mg/dL Urine Blood (Negative) Urine Nitrite (Negative) Ur Leukocyte Esterase (Negative) Urine RBC (0-2) /HPF Urine WBC (0-5) /HPF 11/28/24 11/28/24 Range/Units 17:17 19:47 WBC (4.8-10.8) X10*3/uL RBC (4.60-5.80) X10*6/uL Hgb (14.0-18.0) g/dl Hct (42.0-52.0) % MCHC (31.0-36.0) g/dl RDW (11.0-16.0) % Immature Gran % (Auto) (0.0-0.4) % Neut % (Auto) (45-73) % Lymph % (Auto) (20-40) % Divide % (Auto) (2-11) % Divide # (Auto) (0.1-1.2) X10*3/uL Abs Immat Gran (auto) (0.00-0.03) X10*3/uL Absolute Neuts (auto) (2.0-8.3) x10*3/uL ABG pH at Pt Temp 7.34 L (7.35-7.45) ABG pO2 at Pt Temp 151 H (83-108) mmHg Potassium (3.3-5.1) mmol/L Carbon Dioxide (22-29) mmol/L BUN (9-16) mg/dL Creatinine (0.5-1.4) mg/dL POC Glucose (60-115) mg/dL Random Glucose (60-115) mg/dL Lactic Acid (0.5-2.0) mmol/L Phosphorus (2.7-4.5) mg/dL AST (5-37) U/L Urine Protein 300 (3+) H (Neg-Trace) mg/dL Urine Blood Moderate (2+) H (Negative) Urine Nitrite Positive H (Negative) Ur Leukocyte Esterase Large (3+) H (Negative) Urine RBC 6-10 H (0-2) /HPF Urine WBC >50 H (0-5) /HPF Short CBC 11/28/24 Range/Units 17:11 WBC 19.7 H (4.8-10.8) X10*3/uL Hgb 10.5 L (14.0-18.0) g/dl Hct 34.2 L (42.0-52.0) % Plt Count 326 (160-400) X10*3/uL [facility] 11/28/24 17:07 Sodium 142 Potassium 5.3 H Chloride 107 Carbon Dioxide 20 L BUN 41 H Creatinine 2.45 H Calcium 8.6 Liver Function 11/28/24 Range/Units 17:07 Total Bilirubin 0.4 (0.0-1.0) mg/dL AST 50 H (5-37) U/L ALT 8 (0-40) U/L Alkaline Phosphatase 69 (39-117) U/L Albumin 3.6 (3.5-5.0) g/dL Urine 11/28/24 Range/Units 19:47 Urine Color Dark Yellow Urine Appearance Turbid Urine pH 5.5 (5.0-9.0) Ur Specific Leonore 1.020 (1.005-1.025) Urine Protein 300 (3+) H (Neg-Trace) mg/dL Urine Glucose (UA) Negative (Negative) mg/dL All other labs normal. Assessment and Plan (1) Septic shock: Status: Acute (2) Respiratory failure: Qualifiers: Chronicity: acute Respiratory failure complication: hypoxia Qualified Code(s): J96.01 - Acute respiratory failure with hypoxia Status: Acute Plan 64-year-old male patient presenting in septic shock from group home found to have a dilated appendix on CT. Review of the CT does reveal a fluid filled appendix but with no surrounding inflammatory changes to indicate acute appendicitis. No fecalith is appreciated. No evidence of free air or pneumatosis. No intra-abdominal fluid collections or abscess. Hydronephrosis without nephrolithiasis. No surgical intervention is recommended at this time. Would recommend broad-spectrum antibiotics pending culture results. We will continue to monitor during his hospitalization. Procedures Date of Service Date of Service: 11/28/24
[2024-11-28 23:17] LABS: ABG Refer to POC result
[2024-11-29] VITALS (38 sets, daily range): BP systolic 104–190; BP diastolic 48–97; PULSE 18–120; RESP 12–24; TEMP 34.8–37.7; O2SAT 88–100; BMI 19.9
[2024-11-29] MEDS: Hydrocortisone Sod Succ/PF 100 MG VIAL IVPUSH ×3 (00:54→16:11)
[2024-11-29] MEDS: fentaNYL citrate/NS 1,000 MCG/100 ML PLAST..BAG 10 MCG IVCONT (01:48)
[2024-11-29 04:18] LABS: VBG HCO3 23 mmol/L (22-26); VBG O2 % Saturation 73.0 %
[2024-11-29 04:46] LABS: MANUAL DIFF FLAG NO
[2024-11-29 04:49] LABS: Hematocrit 27.9 % (42.0-52.0); Hemoglobin 9.0 g/dl (14.0-18.0); Imm Gran Abs Auto 0.07 X10*3/uL (0.00-0.03); Imm Gran Pct Auto 0.5 % (0.0-0.4); Lymphocytes Absolute Auto 0.8 X10*3/uL (1.2-4.9); Mean Corpuscular HGB Conc 32.3 g/dl (31.0-36.0); Mean Corpuscular Hemoglobin 28.9 pg (27.0-33.0); Mean Corpuscular Volume 89.7 fL (80.0-98.0); NRBC Abs Auto 0.000 X10*3/uL (0.0-0.012); NRBC Pct Auto 0.0 /100WBC (0.0-0.2); Platelet Count 242 X10*3/uL (160-400); Red Blood Count 3.11 X10*6/uL (4.60-5.80); White Blood Count 15.0 X10*3/uL (4.8-10.8)
[2024-11-29 04:52] LABS: Venous Blood Gas Refer to POC result
[2024-11-29 05:10] LABS: Alanine Aminotransferase < 6 U/L (0-40); Albumin Level 3.2 g/dL (3.5-5.0); Alkaline Phosphatase 74 U/L (39-117); Anion Gap 16 (12-20); Aspartate Amino Transferase 26 U/L (5-37); Blood Urea Nitrogen 41 mg/dL (9-16); Calcium 8.5 mg/dL (8.4-10.2); Carbon Dioxide 22 mmol/L (22-29); Chloride 109 mmol/L (96-108); Creatinine Clr Calc Pharmacy 30.4; Estimated Glomerular Filt Rate 30; Magnesium 1.8 mg/dL (1.6-2.6); Potassium 4.9 mmol/L (3.3-5.1); Sodium 142 mmol/L (135-145); Total Protein 6.2 g/dL (6.5-8.0)
[2024-11-29] MEDS: Lactated Ringers 1,000 ML 100 ML IVCONT ×2 (05:15→14:56)
--- NOTE | 2024-11-29 05:21 | PC.NURSE ---
ADMIT TO 253-1 APPROX 7PM....INTUBATED/VCV VENT SUPPORT....SEDATED WITH KETAMINE AND FENTANYL DRIPS PER MAY..WEAKLY MOVES ARMS BUT NOT TO COMMAND..(+) GAG/COUGH..BILATERAL SOFT WRIST RESTRAINTS PLACED FOR AIRWAY SAFETY PER PROVIDER...VENT WEANED OVERNIGHT FROM AC 24/TV 360/FIO2 65%/PEEP 13 TO FIO2 28% AND PEEP 5CM..SAO2 93-94%...SAUCEDO CATHETER WITHOUT OUTPUT PER HUMAN RESOURCES MANAGER REPORT DESPITE PREVIOUS FLUID BOLUSES...APPROX 15ml CLOUDY SEDIMENTED URINE 8PM...U/A WITH REFLEX COLLECTED..STARTED LR 100 CC/HR PER PROVIDER..LEVOPHED DRIP INITIALY 0.17 MCG/KG/MIN AT ADMISSION..LEVOPHED WEANED TO O.01 MCG/KG/MIN OVERNIGHT..SAUCEDO WITH GRADUALLY IMPROVED HOURLY OUTPUT OVERNIGHT...50ml output for one hour at 5am...RIGHT SCAPULA REDDENED BUT BLANCHABLE..FOAM DRESSING IN PLACE..COCCYX REDDENED BUT BLANCHABLE WITH FOAM DRESSING IN PLACE..BRIDGE OF NOSE REDDENED..MULTIPLE OLD ABRASIONS TO EXTREMETIES...LINE TO LEFT ANTERIOR THIGH CLAMPED AND ASSESSED BY PROVIDER...SURGEON AT BEDSIDE OVERNIGHT..STATED NO SURGICAL INTERVENTIONS AT PRESENT..TO CONTINUE ANTIBIOTIC ORDERED
[2024-11-29] MEDS: Albumin Human 25 % 100 ML IV ×2 (08:12→14:56)
--- NOTE | 2024-11-29 08:20 | PM.PNGS ---
Subjective Subjective Date of Service: 11/29/24 Interval history: remains intubated, non responsive Physical Exam Vital Signs: Vital Signs: Last Vital Signs Temp 99.0 F 11/29/24 07:00 Pulse 86 11/29/24 07:00 Resp 12 11/29/24 07:00 BP 108/59 L 11/29/24 07:00 Pulse Ox 90 L 11/29/24 08:00 O2 Del Method Mechanical Ventil ation 11/29/24 07:00 O2 Flow Rate 100 11/28/24 18:30 FiO2 40 11/29/24 08:00 BMI result Body Mass Index 19.9 Const: General: patient obtunded Orientation/consciousness: patient obtunded GI: Inspection: No distended Palpation (GI): Soft to palpation and nontender Percussion: Yes normal to percussion Neuro: General: patient obtunded Objective Data Active Medications Famotidine (Famotidine/Pf 20 Mg/2 Ml Vial) 20 mg IVPUSH BID [facility] Last Admin: 11/28/24 20:46 Dose: 20 mg Documented By: GEORGINA Heparin Sodium (Porcine) (Heparin Sodium,Porcine 5,000 Unit/Ml Vial) 5,000 unit SUBCUT Q8H [facility] Last Admin: 11/29/24 00:54 Dose: 5,000 unit Documented By: GEORGINA Hydrocortisone Sodium Succinate (Hydrocortisone Sod Succ/Pf 100 Mg Vial) 100 mg IVPUSH Q8H [facility] Last Admin: 11/29/24 00:54 Dose: 100 mg Documented By: GEORGINA Fentanyl (Sublimaze/Ns) 1,000 mcg in 100 mls @ 0 mls/hr IVCONT .Q0M [facility]; Protocol Last Titration: 11/29/24 04:15 Dose: 75 mcg/hr, 7.5 mls/hr Documented By: GEORGINA Ketamine HCl 500 mg/ Sodium (Chloride) 255 mls @ 13.423 mls/hr IVCONT .Q19H [facility]; Protocol Last Infusion: 11/28/24 20:56 Dose: 0.4 mg/kg/hr, 13.42 mls/hr Documented By: GEORGINA Norepinephrine Bitartrate (Levophed) 8 mg in 250 mls @ 0 mls/hr IVCONT .Q0M [facility]; Protocol Last Titration: 11/29/24 04:30 Dose: 0.01 mcg/kg/min, 1.23 mls/hr Documented By: GEORGINA Lactated Ringer's (Lr) 1,000 mls @ 100 mls/hr IVCONT .Q10H [facility] Last Admin: 11/29/24 05:15 Dose: 100 mls/hr Documented By: GEORGINA Albumin Human (Kedbumin 25 %) 100 mls @ 100 mls/hr IV Q6H [facility] Stop: 11/29/24 14:59 Last Admin: 11/29/24 08:12 Dose: 100 mls/hr Documented By: JIMBO Meropenem (Meropenem 500 Mg Vial) 500 mg IVPUSH Q8H [facility] Naloxone HCl (Naloxone Hcl 0.4 Mg/Ml Vial) 0.2 mg IVPUSH Q2M PRN PRN Reason: Excessive sedation or RR < 8 Ondansetron HCl (Ondansetron Hcl 4 Mg/2 Ml Vial) 4 mg IVPUSH Q8H PRN PRN Reason: Nausea and Vomiting Labs 11/29/24 04:13 11/29/24 04:13 Labs: Laboratory Results - last 24 hr 11/28/24 11/28/24 11/28/24 16:39 17:07 17:11 MCV 91.9 MCH 28.2 MCHC 30.7 L RDW 17.6 H Plt Count 326 MPV 9.4 Immature Gran % (Auto) 0.6 H Neut % (Auto) 76.7 H Lymph % (Auto) 10.7 L [place] % (Auto) 11.2 H Eos % (Auto) 0.2 Baso % (Auto) 0.6 Lymph # (Auto) 2.1 [place] # (Auto) 2.2 H Eos # (Auto) 0.0 Baso # (Auto) 0.1 Abs Immat Gran (auto) 0.12 H Absolute Neuts (auto) 15.1 H Absolute Nucleated RBC 0.000 Nucleated RBC % (auto) 0.0 O2 Saturation ABG pH at Pt Temp ABG pCO2 at Pt Temp ABG pO2 at Pt Temp ABG HCO3 ABG Base Excess (Actual) VBG pH VBG pCO2 VBG pO2 VBG HCO3 VBG O2 Saturation VBG Base Excess Anion Gap 20 Estim Creat Clear Calc 27.9 Estimated GFR 27 POC Glucose 144 H Random Glucose 132 H Lactic Acid 2.7 H* Lactic Acid F/U @ 2Hr Calcium 8.6 Phosphorus 5.2 H Magnesium Total Bilirubin 0.4 AST 50 H ALT 8 Alkaline Phosphatase 69 Total Protein 7.3 Albumin 3.6 Urine Color Urine Appearance Urine pH Ur Specific [place] Urine Protein Urine Glucose (UA) Urine Ketones Urine Blood Urine Nitrite Ur Leukocyte Esterase Urine RBC Urine WBC Ur Squamous Epith Cells Urine Bacteria Hyaline Casts Nasal Screen MRSA (PCR) Nasal S. aureus Screen Nasal MRSA/S.aureus Interp 11/28/24 11/28/24 11/28/24 17:17 19:25 19:47 MCV MCH MCHC RDW Plt Count MPV Immature Gran % (Auto) Neut % (Auto) Lymph % (Auto) [place] % (Auto) Eos % (Auto) Baso % (Auto) Lymph # (Auto) [place] # (Auto) Eos # (Auto) Baso # (Auto) Abs Immat Gran (auto) Absolute Neuts (auto) Absolute Nucleated RBC Nucleated RBC % (auto) O2 Saturation 100.0 ABG pH at Pt Temp 7.34 L ABG pCO2 at Pt Temp 40 ABG pO2 at Pt Temp 151 H ABG HCO3 22 ABG Base Excess (Actual) -3.0 VBG pH VBG pCO2 VBG pO2 VBG HCO3 VBG O2 Saturation VBG Base Excess Anion Gap Estim Creat Clear Calc Estimated GFR POC Glucose Random Glucose Lactic Acid Lactic Acid F/U @ 2Hr 1.5 Calcium Phosphorus Magnesium Total Bilirubin AST ALT Alkaline Phosphatase Total Protein Albumin Urine Color Dark Yellow Urine Appearance Turbid Urine pH 5.5 Ur Specific [place] 1.020 Urine Protein 300 (3+) H Urine Glucose (UA) Negative Urine Ketones Trace Urine Blood Moderate (2+) H Urine Nitrite Positive H Ur Leukocyte Esterase Large (3+) H Urine RBC 6-10 H Urine WBC >50 H Ur Squamous Epith Cells 11-20 Urine Bacteria 4+ Hyaline Casts 11-20 Nasal Screen MRSA (PCR) NEGATIVE Nasal S. aureus Screen NEGATIVE Nasal MRSA/S.aureus Interp SEE NOTE 11/29/24 04:13 MCV 89.7 MCH 28.9 MCHC 32.3 RDW 16.9 H Plt Count 242 D MPV 9.2 L Immature Gran % (Auto) 0.5 H Neut % (Auto) 88.4 H Lymph % (Auto) 5.0 L [place] % (Auto) 5.6 Eos % (Auto) 0.2 Baso % (Auto) 0.3 Lymph # (Auto) 0.8 L [place] # (Auto) 0.8 Eos # (Auto) 0.0 Baso # (Auto) 0.1 Abs Immat Gran (auto) 0.07 H Absolute Neuts (auto) 13.3 H Absolute Nucleated RBC 0.000 Nucleated RBC % (auto) 0.0 O2 Saturation ABG pH at Pt Temp ABG pCO2 at Pt Temp ABG pO2 at Pt Temp ABG HCO3 ABG Base Excess (Actual) VBG pH 7.47 H VBG pCO2 31 VBG pO2 48 VBG HCO3 23 VBG O2 Saturation 73.0 VBG Base Excess 0.2 Anion Gap 16 Estim Creat Clear Calc 30.4 Estimated GFR 30 POC Glucose Random Glucose 152 H Lactic Acid Lactic Acid F/U @ 2Hr Calcium 8.5 Phosphorus 3.3 Magnesium 1.8 Total Bilirubin 0.3 AST 26 ALT < 6 Alkaline Phosphatase 74 Total Protein 6.2 L Albumin 3.2 L Urine Color Urine Appearance Urine pH Ur Specific [place] Urine Protein Urine Glucose (UA) Urine Ketones Urine Blood Urine Nitrite Ur Leukocyte Esterase Urine RBC Urine WBC Ur Squamous Epith Cells Urine Bacteria Hyaline Casts Nasal Screen MRSA (PCR) Nasal S. aureus Screen Nasal MRSA/S.aureus Interp Procedures Date of Service Date of Service: 11/29/24 Progress Note: A&P Assessment and plan (1) Septic shock: Status: Acute Plan 64 year old male with a history of history of urinary tract infection, COPD, schizoaffective disorder and adrenal insufficiency. He met sepsis criteria, was intubated and started on pressors. Currently hemodynamically stable. He remains intubated, obtunded. CT abdomen showing possible appendicitis, fluid filled, without appendicolith or inflammatory changes. Unlikely that this is the cause of his septic shock. On exam palpation of the abdomen did not elicit response to pain. There was no distention of the abdomen. No indication for surgical intervention. would continue abx per intensivists. Will continue to follow Time Spent With Patient Time: Total time managing care of this patient today ____ minutes. Quality Stroke Does the patient have a stroke diagnosis?: No VTE Prior VTE?: No VTE Risk Level:: Medical - low VTE Device Contraindication: N/A - Device Ordered VTE Drug Contraindication: N/A - Med Ordered
--- NOTE | 2024-11-29 08:34 | P.PNCC_ITS ---
Subjective Subjective Date of Service: 11/29/24 Interval History: Continues to be critically ill on ventilator support and vasopressor support tapering doses of levophed Critical Care Time (minutes): 35 Physical Exam 2 Vital Signs: Vital Signs: Last Vital Signs Temp 99.0 F 11/29/24 07:00 Pulse 86 11/29/24 07:00 Resp 12 11/29/24 07:00 BP 108/59 L 11/29/24 07:00 Pulse Ox 90 L 11/29/24 08:00 O2 Del Method Mechanical Ventil ation 11/29/24 07:00 O2 Flow Rate 100 11/28/24 18:30 FiO2 40 11/29/24 08:00 BMI result Body Mass Index 19.9 General: Elderly man in acute distress, ill appearing and tired appearing Nutritional Appearance: well nourished and overweight Eyes: appearance normal, both eyes and all related structures; Alignment and Position: alignment normal and position normal Neck: No lymphadenopathy, no thyromegaly Resp: bilateral air entry equal, occasional added sounds present Cardio: Regular rate, regular rhythm; Heart sounds: S1 normal heart sound present and S2 normal heart sound present GI: soft, nontender, no guarding, no hepatosplenomegaly : bladder normal to inspection, bladder normal to palpation, no renal angle tenderness Skin: no rashes or lesions noted and elasticity normal Neuro: Sedated, no focal deficits Objective Data Labs 11/29/24 04:13 11/29/24 04:13 Labs: Laboratory Results - last 24 hr 11/28/24 11/28/24 11/28/24 16:39 17:07 17:11 WBC 19.7 H RBC 3.72 L Hgb 10.5 L Hct 34.2 L MCV 91.9 MCH 28.2 MCHC 30.7 L RDW 17.6 H Plt Count 326 MPV 9.4 Immature Gran % (Auto) 0.6 H Neut % (Auto) 76.7 H Lymph % (Auto) 10.[address] [place] % (Auto) 11.2 H Eos % (Auto) 0.2 Baso % (Auto) 0.6 Lymph # (Auto) 2.1 [place] # (Auto) 2.2 H Eos # (Auto) 0.0 Baso # (Auto) 0.1 Abs Immat Gran (auto) 0.12 H Absolute Neuts (auto) 15.1 H Absolute Nucleated RBC 0.000 Nucleated RBC % (auto) 0.0 O2 Saturation ABG pH at Pt Temp ABG pCO2 at Pt Temp ABG pO2 at Pt Temp ABG HCO3 ABG Base Excess (Actual) VBG pH VBG pCO2 VBG pO2 VBG HCO3 VBG O2 Saturation VBG Base Excess Sodium 142 Potassium 5.3 H Chloride 107 Carbon Dioxide 20 L Anion Gap 20 BUN 41 H Creatinine 2.45 H Estim Creat Clear Calc 27.9 Estimated GFR 27 POC Glucose 144 H Random Glucose 132 H Lactic Acid 2.7 H* Lactic Acid F/U @ 2Hr Calcium 8.6 Phosphorus 5.2 H Magnesium Total Bilirubin 0.4 AST 50 H ALT 8 Alkaline Phosphatase 69 Troponin I High Sens 10.3 Total Protein 7.3 Albumin 3.6 Urine Color Urine Appearance Urine pH Ur Specific [place] Urine Protein Urine Glucose (UA) Urine Ketones Urine Blood Urine Nitrite Ur Leukocyte Esterase Urine RBC Urine WBC Ur Squamous Epith Cells Urine Bacteria Hyaline Casts Nasal Screen MRSA (PCR) Nasal S. aureus Screen Nasal MRSA/S.aureus Interp 11/28/24 11/28/24 11/28/24 17:17 19:25 19:47 WBC RBC Hgb Hct MCV MCH MCHC RDW Plt Count MPV Immature Gran % (Auto) Neut % (Auto) Lymph % (Auto) [place] % (Auto) Eos % (Auto) Baso % (Auto) Lymph # (Auto) [place] # (Auto) Eos # (Auto) Baso # (Auto) Abs Immat Gran (auto) Absolute Neuts (auto) Absolute Nucleated RBC Nucleated RBC % (auto) O2 Saturation 100.0 ABG pH at Pt Temp 7.34 L ABG pCO2 at Pt Temp 40 ABG pO2 at Pt Temp 151 H ABG HCO3 22 ABG Base Excess (Actual) -3.0 VBG pH VBG pCO2 VBG pO2 VBG HCO3 VBG O2 Saturation VBG Base Excess Sodium Potassium Chloride Carbon Dioxide Anion Gap BUN Creatinine Estim Creat Clear Calc Estimated GFR POC Glucose Random Glucose Lactic Acid Lactic Acid F/U @ 2Hr 1.5 Calcium Phosphorus Magnesium Total Bilirubin AST ALT Alkaline Phosphatase Troponin I High Sens Total Protein Albumin Urine Color Dark Yellow Urine Appearance Turbid Urine pH 5.5 Ur Specific [place] 1.020 Urine Protein 300 (3+) H Urine Glucose (UA) Negative Urine Ketones Trace Urine Blood Moderate (2+) H Urine Nitrite Positive H Ur Leukocyte Esterase Large (3+) H Urine RBC 6-10 H Urine WBC >50 H Ur Squamous Epith Cells 11-20 Urine Bacteria 4+ Hyaline Casts 11-20 Nasal Screen MRSA (PCR) NEGATIVE Nasal S. aureus Screen NEGATIVE Nasal MRSA/S.aureus Interp SEE NOTE 11/29/24 04:13 WBC 15.0 H RBC 3.11 L Hgb 9.0 L Hct 27.9 L MCV 89.7 MCH 28.9 MCHC 32.3 RDW 16.9 H Plt Count 242 D MPV 9.2 L Immature Gran % (Auto) 0.5 H Neut % (Auto) 88.4 H Lymph % (Auto) 5.[address] % (Auto) 5.6 Eos % (Auto) 0.2 Baso % (Auto) 0.3 Lymph # (Auto) 0.[address] # (Auto) 0.8 Eos # (Auto) 0.0 Baso # (Auto) 0.1 Abs Immat Gran (auto) 0.07 H Absolute Neuts (auto) 13.3 H Absolute Nucleated RBC 0.000 Nucleated RBC % (auto) 0.0 O2 Saturation ABG pH at Pt Temp ABG pCO2 at Pt Temp ABG pO2 at Pt Temp ABG HCO3 ABG Base Excess (Actual) VBG pH 7.47 H VBG pCO2 31 VBG pO2 48 VBG HCO3 23 VBG O2 Saturation 73.0 VBG Base Excess 0.2 Sodium 142 Potassium 4.9 Chloride 109 H Carbon Dioxide 22 Anion Gap 16 BUN 41 H Creatinine 2.21 H Estim Creat Clear Calc 30.4 Estimated GFR 30 POC Glucose Random Glucose 152 H Lactic Acid Lactic Acid F/U @ 2Hr Calcium 8.5 Phosphorus 3.3 Magnesium 1.8 Total Bilirubin 0.3 AST 26 ALT < 6 Alkaline Phosphatase 74 Troponin I High Sens Total Protein 6.2 L Albumin 3.2 L Urine Color Urine Appearance Urine pH Ur Specific [place] Urine Protein Urine Glucose (UA) Urine Ketones Urine Blood Urine Nitrite Ur Leukocyte Esterase Urine RBC Urine WBC Ur Squamous Epith Cells Urine Bacteria Hyaline Casts Nasal Screen MRSA (PCR) Nasal S. aureus Screen Nasal MRSA/S.aureus Interp Progress Note: A&P Assessment and plan (1) Acute renal failure: Status: Acute (2) Acidosis, lactic: Status: Acute (3) Septic shock: Status: Acute (4) Acute encephalopathy: Status: Acute (5) Respiratory failure: Status: Acute (6) COPD exacerbation: Status: Acute Plan Neuro: Acute encephalopathy possibly due to metabolic encephalopathy Continue ketamine for sedation as patient is hypotensive, as needed fentanyl for analgesia. CT of the head did not show any intracranial pathology Close neurological status monitoring in the ICU every hour Cardiac: Septic Shock: Possibly secondary to urinary tract infection On Levophed support, titrate Levophed to keep map above 65 mm Hg Respiratory: Acute hypoxemic respiratory failure due to aspiration pneumonia. CT chest showing bilateral pneumonia mostly dependent areas Currently on ventilator support On PRVC mode FiO2 100%, PEEP 13, TV 360, RR 20 Peak pressures and plateau pressures are under the curve. 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 Blood sugars under control Sliding scale insulin as needed Infectious disease: Pending pancultures CT abdomen and pelvis showing dilated appendix suggestive of appendiceal versus atypical presentation of appendicitis. Surgery was consulted who thinks this is benign. CT also showed bilateral hydroureter without any obstruction, Urology was consulted upon for conservative management Continue meropenem; MRSA nares negative Musculoskeletal: Decubitus ulcer prevention protocol Lines: Peripheral Prophylaxis: Famotidine, heparin Critical care time spent is about 40 minutes on managing critically ill patient with multiple organ failure to medical ICU. This time is mostly spent on ventilator management, sedation management close hemodynamic monitoring, vasopressor management, review of labs and images at this time is excluding any procedural time Quality Stroke Does the patient have a stroke diagnosis?: No VTE Prior VTE?: No VTE Risk Level:: Medical - low VTE Device Contraindication: N/A - Device Ordered VTE Drug Contraindication: N/A - Med Ordered
[2024-11-29 08:48] LABS: Chlamydia pneumoniae PCR Not Detected (Not Detect.); Coronavirus 229E PCR Not Detected (Not Detect.); Coronavirus HKU1 PCR Not Detected (Not Detect.); Coronavirus NL63 PCR Not Detected (Not Detect.); Coronavirus OC43 PCR Not Detected (Not Detect.); RSV PCR Not Detected (Not Detect.); Rhino/Enterovirus PCR Not Detected (Not Detect.)
[2024-11-29 08:52] LABS: Influenza A H1 PCR Not Detected (Not Detect.); Influenza A H1-2009 PCR Not Detected (Not Detect.); Influenza A H3 PCR Not Detected (Not Detect.); SARS-CoV-2 PCR Not Detected (Not Detect.)
--- NOTE | 2024-11-29 10:27 | MHC.CM.PN ---
IMM DELIVERED TO [facility] VIA TELEPHONE. WHITE COPY TO BE SENT WITH PT ON DC BACK TO CENTER. 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 COPY OF [facility] HAS BEEN REQUESTED. WILL NEED BLS TRANSPORT ON DC. CM WILL CONTINUE TO FOLLOW FOR ANY CHANGE TO DC PLAN.
--- NOTE | 2024-11-29 11:09 | MHC.CLN ---
PT IS INTUBATED AND SEDATED DISCUSSED AT ROUND WITH PT IS NPO WITHOUT OGT IN PLACE IF TF NEEDED; RECOMMEND JEVITY 1.2 AT MAX GOAL RATE 60ML/HR WITH 240ML FREE WATER FLUSHES Q 8 HRS TO PROVIDE 1728KCALS (27KCALS/KG), 80G PROTEIN (1.2G/KG), 1882ML TOTAL WATER FROM FORMULA AND FLUSHES (29ML/KG) MONITOR TOLERANCE AND LYTES FOLLOWING FOR DIET ADVANCEMENT SEE FULL ASSESSMENT
--- NOTE | 2024-11-29 12:28 | PM.UROCN ---
History of Present Illness Consult details Consult date: 11/29/24 Narrative: CC: Urinary tract infection 64-year-old male senior living resident with chronic Heaton catheter Found to have UTI and altered sensorium Transferred to emergency room where intubated and placed on ventilator support for hypotension Responding to antibiotics and hydration - creatinine at admission 2.45 down to 2.2 Imaging shows chronic bilateral hydro nephrosis with bladder wall thickening Continue supportive medical care Reassess in 24-48 hours with possible repeat ultrasound imaging for hydro nephrosis persistent Review of Systems Constitutional: Constitutional: Reports as per HPI and Reports no additional constitutional complaints Cardiovascular: Cardiovascular: Reports as per HPI and Reports no additional cardiovascular complaints Respiratory: Respiratory: Reports as per HPI and Reports no additional respiratory complaints Gastrointestinal: Gastrointestinal: Reports as per HPI and Reports no additional gastrointestinal complaints Genitourinary: Genitourinary: Reports as per HPI Musculoskeletal: Musculoskeletal: Reports no additional musculoskeletal complaints and Reports as per HPI Neurologic: Reports system reviewed and no additional complaints, except as documented and Reports as per HPI [facility] Social History Social History Household Members: Other Housing: Residential Do you presently have visiting nurse or other home services: Yes Comment: 1:[address] Patient Tobacco Use Status: Tobacco use Unknown service: No Meds Allergies Allergy/AdvReac Type Severity Reaction Status Date / Time amprenavir Allergy Unknown Verified 11/28/24 16:55 cephaloridine Allergy Unknown Verified 11/28/24 16:55 clozapine Allergy Unknown Verified 11/28/24 16:55 Penicillins Allergy Unknown Verified 11/28/24 16:55 Phenothiazines Allergy Unknown Verified 11/28/24 16:55 Sulfa (Sulfonamide Allergy Unknown Verified 11/28/24 16:55 Antibiotics) Active Medications: Current Medications Famotidine (Famotidine/Pf 20 Mg/2 Ml Vial) 20 mg IVPUSH BID [facility] Last Admin: 11/29/24 08:45 Dose: 20 mg Heparin Sodium (Porcine) (Heparin Sodium,Porcine 5,000 Unit/Ml Vial) 5,000 unit SUBCUT Q8H [facility] Last Admin: 11/29/24 08:45 Dose: 5,000 unit Hydrocortisone Sodium Succinate (Hydrocortisone Sod Succ/Pf 100 Mg Vial) 100 mg IVPUSH Q8H [facility] Last Admin: 11/29/24 08:45 Dose: 100 mg Fentanyl (Sublimaze/Ns) 1,000 mcg in 100 mls @ 0 mls/hr IVCONT .Q0M [facility]; Protocol Last Titration: 11/29/24 09:17 Dose: 0 mcg/hr, 0 mls/hr Ketamine HCl 500 mg/ Sodium (Chloride) 255 mls @ 3.356 mls/hr IVCONT .Q24H NIDIA; Protocol Last Infusion: 11/29/24 11:57 Dose: 0.1 mg/kg/hr, 3.36 mls/hr Norepinephrine Bitartrate (Levophed) 8 mg in 250 mls @ 0 mls/hr IVCONT .Q0M NIDIA; Protocol Last Titration: 11/29/24 10:13 Dose: 0 mcg/kg/min, 0 mls/hr Lactated Ringer's (Lr) 1,000 mls @ 100 mls/hr IVCONT .Q10H [facility] Last Admin: 11/29/24 05:15 Dose: 100 mls/hr Albumin Human (Kedbumin 25 %) 100 mls @ 100 mls/hr IV Q6H [facility] Stop: 11/29/24 14:59 Last Infusion: 11/29/24 09:14 Dose: Infused Meropenem (Meropenem 1 Gm Vial) 1 gm IVPUSH Q12H [facility] Last Admin: 11/29/24 10:16 Dose: 1 gm Naloxone HCl (Naloxone Hcl 0.4 Mg/Ml Vial) 0.2 mg IVPUSH Q2M PRN PRN Reason: Excessive sedation or RR < 8 Ondansetron HCl (Ondansetron Hcl 4 Mg/2 Ml Vial) 4 mg IVPUSH Q8H PRN PRN Reason: Nausea and Vomiting Home Medications ?Medication ?Instructions ?Recorded ?Confirmed ?Last Taken ?Type acetaminophen 325 mg rectal 325 mg WA Q4H PRN Constipation 11/28/24 11/28/24 Unknown History suppository acetaminophen 325 mg tablet 975 mg PO Q6H PRN Pain 11/28/24 11/28/24 Unknown History albuterol sulfate 90 mcg/actuation 2 puff inhalation Q6H PRN 11/28/24 11/28/24 Unknown History aerosol inhaler (Ventolin HFA) Shortness Of Breath Or Wheezing aspirin 81 mg tablet,delayed 81 mg PO DAILY 11/28/24 11/28/24 Unknown History release azithromycin 250 mg tablet 250 mg PO DAILY 11/28/24 11/28/24 Unknown History azithromycin 250 mg tablet 500 mg PO DAILY 11/28/24 11/28/24 Unknown History benztropine 0.5 mg tablet 0.5 mg PO BID 11/28/24 11/28/24 Unknown History bisacodyl 10 mg rectal suppository 10 mg WA DAILY PRN Constipation 11/28/24 11/28/24 Unknown History ceftriaxone 1 gram solution for 1 g IM DAILY 11/28/24 11/28/24 Unknown History injection divalproex 500 mg tablet,delayed 1,000 mg PO BID 11/28/24 11/28/24 Unknown History release doxycycline hyclate 100 mg capsule 100 mg PO BID 11/28/24 11/28/24 Unknown History famotidine 20 mg tablet 20 mg PO DAILY 11/28/24 11/28/24 Unknown History haloperidol 5 mg tablet 15 mg PO TID 11/28/24 11/28/24 Unknown History hydrocortisone 5 mg tablet 15 mg PO BEDTIME 11/28/24 11/28/24 Unknown History hydrocortisone 5 mg tablet 15 mg PO DAILY 11/28/24 11/28/24 Unknown History ipratropium 0.5 mg-albuterol 3 mg 3 ml inhalation Q6H PRN Shortness 11/28/24 11/28/24 Unknown History (2.5 mg base)/3 mL nebulization Of Breath Or Wheezing soln levothyroxine 150 mcg tablet 150 mcg PO DAILY@0600 11/28/24 11/28/24 Unknown History liothyronine 5 mcg tablet 5 mcg PO DAILY 11/28/24 11/28/24 Unknown History lorazepam 0.5 mg tablet 0.5 mg PO TID 11/28/24 11/28/24 Unknown History magnesium hydroxide 400 mg/5 mL 30 ml PO DAILY PRN Constipation 11/28/24 11/28/24 Unknown History oral suspension (Milk of Magnesia) naloxone 0.4 mg/mL injection 0.4 mg subcut Q2M PRN Opiate 11/28/24 11/28/24 Unknown History solution Reversal naloxone 4 mg/actuation nasal spray 4 mg intranasal Q3M PRN Opiate 11/28/24 11/28/24 Unknown History Reversal simvastatin 5 mg tablet 5 mg PO BEDTIME 11/28/24 11/28/24 Unknown History sodium phosphates 19 gram-7 118 ml WA DAILY PRN Constipation 11/28/24 11/28/24 Unknown History gram/118 mL enema (Fleet Enema) thiamine HCl (vitamin B1) 100 mg 100 mg PO DAILY 11/28/24 11/28/24 Unknown History tablet trazodone 50 mg tablet 25 mg PO BID 11/28/24 11/28/24 Unknown History Physical Exam Vital Signs: Vital Signs: Last Vital Signs Temp 98.6 F 11/29/24 12:00 Pulse 70 11/29/24 12:00 Resp 24 H 11/29/24 12:00 BP 155/75 H 11/29/24 12:00 Pulse Ox 99 11/29/24 12:00 O2 Del Method Mechanical Ventil ation 11/29/24 12:00 O2 Flow Rate 100 11/28/24 18:30 FiO2 24 11/29/24 12:00 BMI result Body Mass Index 19.9 Const: General: cooperative, healthy appearing, comfortable and no acute distress Orientation/consciousness: patient oriented x3 HEENT: Face and sinus: Yes normal facial exam Mouth: moist mucous membranes Neck: Neck: Yes normal visual inspection, Yes full ROM and Yes trachea midline Chest: Chest palpation & inspection: normal inspection of the chest Resp: Effort & Inspection: normal respiratory effort, able to speak in complete sentences and no respiratory distress GI: Inspection: Yes normal to inspection Back/Spine/Pelvis: Cervical Spine: normal cervical lordosis Thoracic/Lumbar Spine: thoracic and lumbar spine normal to inspection Skin: General skin exam: no rashes or lesions noted Neuro: General: patient oriented x3, tone normal and moves all extremities Extrem: General: Yes normal to inspection and Yes capillary refill normal Results Labs 11/30/24 06:06 11/30/24 04:49 Labs: Abnormal lab results 11/28/24 11/28/24 11/28/24 Range/Units 16:39 17:07 17:11 WBC 19.7 H (4.8-10.8) X10*3/uL RBC 3.72 L (4.60-5.80) X10*6/uL Hgb 10.5 L (14.0-18.0) g/dl Hct 34.2 L (42.0-52.0) % MCHC 30.7 L (31.0-36.0) g/dl RDW 17.6 H (11.0-16.0) % MPV (9.4-12.4) fL Immature Gran % (Auto) 0.6 H (0.0-0.4) % Neut % (Auto) 76.7 H (45-73) % Lymph % (Auto) 10.7 L (20-40) % [place] % (Auto) 11.2 H (2-11) % Lymph # (Auto) (1.2-4.9) X10*3/uL [place] # (Auto) 2.2 H (0.1-1.2) X10*3/uL Abs Immat Gran (auto) 0.12 H (0.00-0.03) X10*3/uL Absolute Neuts (auto) 15.1 H (2.0-8.3) x10*3/uL ABG pH at Pt Temp (7.35-7.45) ABG pO2 at Pt Temp (83-108) mmHg VBG pH (7.32-7.43) Potassium 5.3 H (3.3-5.1) mmol/L Chloride (96-108) mmol/L Carbon Dioxide 20 L (22-29) mmol/L BUN 41 H (9-16) mg/dL Creatinine 2.45 H (0.5-1.4) mg/dL POC Glucose 144 H (60-115) mg/dL Random Glucose 132 H (60-115) mg/dL Lactic Acid 2.7 H* (0.5-2.0) mmol/L Phosphorus 5.2 H (2.7-4.5) mg/dL AST 50 H (5-37) U/L Total Protein (6.5-8.0) g/dL Albumin (3.5-5.0) g/dL Urine Protein (Neg-Trace) mg/dL Urine Blood (Negative) Urine Nitrite (Negative) Ur Leukocyte Esterase (Negative) Urine RBC (0-2) /HPF Urine WBC (0-5) /HPF 11/28/24 11/28/24 11/29/24 Range/Units 17:17 19:47 04:13 WBC 15.0 H (4.8-10.8) X10*3/uL RBC 3.11 L (4.60-5.80) X10*6/uL Hgb 9.0 L (14.0-18.0) g/dl Hct 27.9 L (42.0-52.0) % MCHC (31.0-36.0) g/dl RDW 16.9 H (11.0-16.0) % MPV 9.2 L (9.4-12.4) fL Immature Gran % (Auto) 0.5 H (0.0-0.4) % Neut % (Auto) 88.4 H (45-73) % Lymph % (Auto) 5.0 L (20-40) % [place] % (Auto) (2-11) % Lymph # (Auto) 0.8 L (1.2-4.9) X10*3/uL [place] # (Auto) (0.1-1.2) X10*3/uL Abs Immat Gran (auto) 0.07 H (0.00-0.03) X10*3/uL Absolute Neuts (auto) 13.3 H (2.0-8.3) x10*3/uL ABG pH at Pt Temp 7.34 L (7.35-7.45) ABG pO2 at Pt Temp 151 H (83-108) mmHg VBG pH 7.47 H (7.32-7.43) Potassium (3.3-5.1) mmol/L Chloride 109 H (96-108) mmol/L Carbon Dioxide (22-29) mmol/L BUN 41 H (9-16) mg/dL Creatinine 2.21 H (0.5-1.4) mg/dL POC Glucose (60-115) mg/dL Random Glucose 152 H (60-115) mg/dL Lactic Acid (0.5-2.0) mmol/L Phosphorus (2.7-4.5) mg/dL AST (5-37) U/L Total Protein 6.2 L (6.5-8.0) g/dL Albumin 3.2 L (3.5-5.0) g/dL Urine Protein 300 (3+) H (Neg-Trace) mg/dL Urine Blood Moderate (2+) H (Negative) Urine Nitrite Positive H (Negative) Ur Leukocyte Esterase Large (3+) H (Negative) Urine RBC 6-10 H (0-2) /HPF Urine WBC >50 H (0-5) /HPF Short CBC 11/28/24 11/29/24 Range/Units 17:11 04:13 WBC 19.7 H 15.0 H (4.8-10.8) X10*3/uL Hgb 10.5 L 9.0 L (14.0-18.0) g/dl Hct 34.2 L 27.9 L (42.0-52.0) % Plt Count 326 242 D (160-400) X10*3/uL BMP 11/28/24 11/29/24 17:07 04:13 Sodium 142 142 Potassium 5.3 H 4.9 Chloride 107 109 H Carbon Dioxide 20 L 22 BUN 41 H 41 H Creatinine 2.45 H 2.21 H Calcium 8.6 8.5 Liver Function 11/28/24 11/29/24 Range/Units 17:07 04:13 Total Bilirubin 0.4 0.3 (0.0-1.0) mg/dL AST 50 H 26 (5-37) U/L ALT 8 < 6 (0-40) U/L Alkaline Phosphatase 69 74 (39-117) U/L Albumin 3.6 3.2 L (3.5-5.0) g/dL Urine 11/28/24 Range/Units 19:47 Urine Color Dark Yellow Urine Appearance Turbid Urine pH 5.5 (5.0-9.0) Ur Specific [place] 1.020 (1.005-1.025) Urine Protein 300 (3+) H (Neg-Trace) mg/dL Urine Glucose (UA) Negative (Negative) mg/dL All other labs normal. Assessment and Plan (1) Septic shock: Status: Acute (2) UTI (urinary tract infection) due to urinary indwelling Heaton catheter: Qualifiers: Indwelling urinary catheter type: indwelling urethral catheter Encounter type: initial encounter Qualified Code(s): T83.511A - Infection and inflammatory reaction due to indwelling urethral catheter, initial encounter; N39.0 - Urinary tract infection, site not specified Status: Acute Plan Conservative medical therapy Procedures Date of Service Date of Service: 11/30/24
--- NOTE | 2024-11-29 13:49 | PC.NURSE ---
Ketamine & Fent gtt paused for sedation vacation - patient awake, eyes open, positive tracking, positive C/G/P, following commands. RT called to bedside - PSV trial initiated - occasional apnic episodes then restless at times attempting to remove ETT, SBP 170-180's - RT and Dr Gonzales at bedside. Patient extubated per MD order at 1330 to 2L NC without incident. Pt remains restless/requiring frequent redirection - restraints in place for pulling tubes/wires/lines. Care ongoing.
[2024-11-30] VITALS (19 sets, daily range): BP systolic 136–177; BP diastolic 61–88; PULSE 81–121; RESP 13–26; TEMP 36.4–36.7; O2SAT 91–98; BMI 18.4
[2024-11-30] MEDS: Lactated Ringers 1,000 ML 100 ML IVCONT ×2 (01:01→10:52)
[2024-11-30] MEDS: Hydrocortisone Sod Succ/PF 100 MG VIAL IVPUSH ×2 (01:01→09:32)
[2024-11-30 05:41] LABS: Alanine Aminotransferase 6 U/L (0-40); Albumin Level 3.9 g/dL (3.5-5.0); Alkaline Phosphatase 58 U/L (39-117); Anion Gap 17 (12-20); Aspartate Amino Transferase 34 U/L (5-37); Blood Urea Nitrogen 29 mg/dL (9-16); Calcium 9.0 mg/dL (8.4-10.2); Carbon Dioxide 22 mmol/L (22-29); Chloride 108 mmol/L (96-108); Creatinine Clr Calc Pharmacy 41.8; Estimated Glomerular Filt Rate 43; Magnesium 1.9 mg/dL (1.6-2.6); Potassium 4.1 mmol/L (3.3-5.1); Sodium 143 mmol/L (135-145); Total Protein 6.8 g/dL (6.5-8.0)
[2024-11-30 06:15] LABS: Hematocrit 27.5 % (42.0-52.0); Hemoglobin 8.9 g/dl (14.0-18.0); Imm Gran Abs Auto 0.04 X10*3/uL (0.00-0.03); Imm Gran Pct Auto 0.3 % (0.0-0.4); Lymphocytes Absolute Auto 0.8 X10*3/uL (1.2-4.9); Mean Corpuscular HGB Conc 32.4 g/dl (31.0-36.0); Mean Corpuscular Hemoglobin 28.5 pg (27.0-33.0); Mean Corpuscular Volume 88.1 fL (80.0-98.0); NRBC Abs Auto 0.000 X10*3/uL (0.0-0.012); NRBC Pct Auto 0.0 /100WBC (0.0-0.2); Platelet Count 222 X10*3/uL (160-400); Red Blood Count 3.12 X10*6/uL (4.60-5.80); White Blood Count 12.3 X10*3/uL (4.8-10.8)
[2024-11-30 06:17] LABS: MANUAL DIFF FLAG NO
--- NOTE | 2024-11-30 06:24 | PC.NURSE ---
Assumed care 1899. Pt alert to person only, follow commands at times. Pt increasingly agitated/restless, combative, pulling at wires/lines. Dilaudid 0.5 mg IVP administered for agitation x2 per ROD Pizarro - see MAY. Telesitter placed at bedside. Pt self removed TLC - occlusive?dsg applied and 1:1 sitter placed at bedside for safety. SR/ST on tele, HR 90-110s, systolic BP 170s. Hydralazine 10 mg IVP ordered and administered - see MAY. SpO2 88-94% on RA. Chronic Heaton?in place draining pale yellow?urine.? Abdomen round and slightly distended. Blanchable redness to coccyx, foam dsg applied. Hygiene provided, repositioned Q2.?
--- NOTE | 2024-11-30 10:23 | PM.CCPN ---
Subjective Subjective Date of Service: 11/30/24 Interval History: WBC count trending down to 12.3 K Renal function and other labs are improved Extubated yesterday, tolerating liberation from ventilator well Critical Care Time (minutes): 35 Physical Exam Vital Signs: Vital Signs: Last Vital Signs Temp 97.5 F 11/30/24 08:00 Pulse 89 11/30/24 09:00 Resp 18 11/30/24 09:00 BP 140/80 H 11/30/24 09:00 Pulse Ox 96 11/30/24 09:00 O2 Del Method Room Air 11/30/24 09:00 O2 Flow Rate 1 11/29/24 21:00 FiO2 24 11/29/24 13:31 BMI result Body Mass Index 18.4 General: Elderly male in mild acute distress, he is chronically ill appearing and tired appearing Nutritional Appearance: well nourished and overweight Eyes: appearance normal, both eyes and all related structures; Alignment and Position: alignment normal and position normal Neck: No lymphadenopathy, no thyromegaly Resp: bilateral air entry equal, occasional added sounds present Cardio: Regular rate, regular rhythm; Heart sounds: S1 normal heart sound present and S2 normal heart sound present GI: soft, nontender, no guarding, no hepatosplenomegaly : bladder normal to inspection, bladder normal to palpation, no renal angle tenderness Skin: no rashes or lesions noted and elasticity normal Neuro: Confused, moves all extremities Objective Data Labs 11/30/24 06:06 11/30/24 04:49 Labs: Laboratory Results - last 24 hr 11/30/24 11/30/24 04:49 06:06 WBC 12.3 H RBC 3.12 L Hgb 8.9 L Hct 27.5 L MCV 88.1 MCH 28.5 MCHC 32.4 RDW 17.0 H Plt Count 222 MPV 9.0 L Immature Gran % (Auto) 0.3 Neut % (Auto) 88.5 H Lymph % (Auto) 6.4 L [place] % (Auto) 4.6 Eos % (Auto) 0.0 Baso % (Auto) 0.2 Lymph # (Auto) 0.8 L [place] # (Auto) 0.6 Eos # (Auto) 0.0 Baso # (Auto) 0.0 Abs Immat Gran (auto) 0.04 H Absolute Neuts (auto) 10.9 H Absolute Nucleated RBC 0.000 Nucleated RBC % (auto) 0.0 Sodium 143 Potassium 4.1 Chloride 108 Carbon Dioxide 22 Anion Gap 17 BUN 29 H Creatinine 1.61 H Estim Creat Clear Calc 41.8 Estimated GFR 43 Random Glucose 103 Calcium 9.0 Phosphorus 2.7 Magnesium 1.9 Total Bilirubin 0.2 AST 34 ALT 6 Alkaline Phosphatase 58 Total Protein 6.8 Albumin 3.9 Microbiology Microbiology Results: Microbiology 11/28/24 17:07 Blood - Venous Blood Culture - Preliminary No growth after 24 hours. 11/28/24 17:07 Blood - Venous Blood Culture - Preliminary No growth after 24 hours. 11/28/24 Unknown Urine clean catch - Clean Catch Midstream Urine Culture - Preliminary Culture in progress. Progress Note: A&P Assessment and plan (1) Acute renal failure: Status: Acute (2) Septic shock: Status: Acute (3) Acute encephalopathy: Status: Acute (4) Respiratory failure: Status: Acute (5) COPD exacerbation: Status: Acute (6) Bilateral pneumonia: Status: Acute Plan Neuro: Has significant schizoaffective disorder at baseline for which he is under guardian custody at [facility] will restart his home psych meds including Depakote, haloperidol, Ativan- not at cleared for p.o. intake, we will keep him on scheduled IV haloperidol until then CT of the head did not show any intracranial pathology Respiratory: Acute hypoxemic respiratory failure due to aspiration pneumonia. 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 As his blood pressures are above 150 we are withholding his IV hydrocortisone Blood sugars under control Sliding scale insulin as needed Infectious disease: Pending pancultures CT abdomen and pelvis showing dilated appendix suggestive of appendiceal versus atypical presentation of appendicitis. Surgery was consulted who thinks this is benign. CT also showed bilateral hydroureter without any obstruction, Urology was consulted upon for conservative management Continue meropenem; MRSA nares negative Musculoskeletal: Decubitus ulcer prevention protocol Lines: Peripheral Prophylaxis: Famotidine, heparin Quality Stroke Does the patient have a stroke diagnosis?: No VTE Prior VTE?: No VTE Risk Level:: Medical - low VTE Device Contraindication: N/A - Device Ordered VTE Drug Contraindication: N/A - Med Ordered
[2024-11-30] MEDS: Divalproex Sodium Sprinkles 125 MG CAP.DR.SPR 1000 MG PO ×2 (13:09→21:30)
--- NOTE | 2024-11-30 16:48 | PC.NURSE ---
Assumed care at 0700- pt. A&O to self only, labile mood. Pt. impulsive, intermittently pulling at tubes and lines- 1:[address] SR/Stach on tele, HR 80s-120s. Elevated SBPs up to 160s- MD aware, no new orders. O2 sat >88% on RA. Pt. passed bedside swallow eval. [facility], pt.s baseline diet is mechanical soft with nectar thick liquids. MD aware, diet order placed. Chronic mahoney draining cyu. Q2 repositioning performed. Med tele downgrade orders placed, RN report given to Edie. Pt. transported to [facility] at approx. 1645.
[2024-12-01 03:09] VITALS: BP 160/80; PULSE 66; RESP 18; TEMP 36.9; O2SAT 95
[2024-12-01 05:29] VITALS: BMI 18.6
[2024-12-01] MEDS: Divalproex Sodium Sprinkles 125 MG CAP.DR.SPR 1000 MG PO ×2 (07:35→20:59)
[2024-12-01 08:00] VITALS: BP 144/76; PULSE 79; RESP 18; TEMP 36.4; O2SAT 98
--- NOTE | 2024-12-01 08:57 | HO.PM.IMPN ---
Subjective Subjective Date of Service: 12/01/24 Interval History: feeling better Physical Exam Exam: Exam: General: AO X 2, no acute distress Resp: CTA bilateral, no accessory muscles used CVS: S1,S2,RRR GI: soft, non tender, non distended Neuro: motor grossly intact, alert Psych: impairedinsight Vital Signs: Vital Signs: Last Vital Signs Temp 97.6 F 12/01/24 08:00 Pulse 79 12/01/24 08:00 Resp 18 12/01/24 08:00 BP 144/76 H 12/01/24 08:00 Pulse Ox 98 12/01/24 08:00 O2 Del Method Room Air 12/01/24 08:00 O2 Flow Rate 1 11/29/24 21:00 FiO2 24 11/29/24 13:31 BMI result Body Mass Index 18.6 Objective Data Active Medications Aspirin (Aspirin Enteric Coated 81 Mg Tablet.) 81 mg PO DAILY [facility] Last Admin: 12/01/24 08:15 Dose: Not Given Documented By: CARIE Non-Admin Reason: UNABLE TO CRUSH THIS MED Divalproex Sodium (Divalproex Sodium Sprinkles 125 Mg Cap.) 1,000 mg PO BID [facility] Last Admin: 12/01/24 07:35 Dose: 1,000 mg Documented By: CARIE Famotidine (Famotidine/Pf 20 Mg/2 Ml Vial) 20 mg IVPUSH BID [facility] Last Admin: 12/01/24 08:11 Dose: Not Given Documented By: CARIE Non-Admin Reason: No Access Haloperidol (Haloperidol 5 Mg Tablet) 15 mg PO TID [facility] Last Admin: 12/01/24 07:35 Dose: 15 mg Documented By: CARIE Haloperidol Lactate (Haloperidol Lactate 5 Mg/Ml Vial) 1 mg IM Q6H [facility] Last Admin: 12/01/24 06:07 Dose: 1 mg Documented By: PARUL Comments: unable to give IM, given IV qtc measured 440 per tele Heparin Sodium (Porcine) (Heparin Sodium,Porcine 5,000 Unit/Ml Vial) 5,000 unit SUBCUT Q8H [facility] Last Admin: 12/01/24 02:22 Dose: Not Given Documented By: TRE Non-Admin Reason: Patient Refused Levothyroxine Sodium (Levothyroxine Sodium 150 Mcg Tablet) 150 mcg PO DAILY@0600 [facility] Last Admin: 12/01/24 06:08 Dose: 150 mcg Documented By: PARUL Lorazepam (Lorazepam 0.5 Mg Tablet) 0.5 mg PO TID [facility] Last Admin: 12/01/24 07:35 Dose: 0.5 mg Documented By: CARIE Meropenem (Meropenem 1 Gm Vial) 1 gm IVPUSH Q12H [facility] Last Admin: 11/30/24 21:31 Dose: 1 gm Documented By: TRE Labs 11/30/24 06:06 11/30/24 04:49 Microbiology Microbiology Results: Microbiology 11/28/24 17:07 Blood Culture - Preliminary Blood - Venous No growth after 48 hours. 11/28/24 17:07 Blood Culture - Preliminary Blood - Venous No growth after 48 hours. 11/28/24 Unknown Urine Culture - Preliminary Urine clean catch - Clean Catch Midstream Gram negative jeffrey Assessment and Plan (1) Septic shock: Status: Acute Plan 64M PMH copd, htn, ?adrenal insufficiency, schizoaffective disorder [facility] with ams, severe hypoxia, septic shock from uti and aspiratoin pneumonia, was admitted to ICU, intubated, on pressors. Patient was extubated on 11/29/2024 and downgraded to medical floor on 11/30/2024. Septic shock, acute metabolic encephalopathy, acute hypoxic respiratory failure due to aspiration pneumonia and urinary tract infection Now on room air and off pressors Mental status back to baseline Continue IV meropenem and follow up cultures, blood culture so far negative, urine culture growing Gram-negative rods Incidental finding of dilated appendix - was seen by surgery felt this is benign Incidental finding of bilateral hydroureter without obstruction - seen by Urology recommended conservative management Questionable history of adrenal insufficiency Blood pressure has been high, hydrocortisone held, monitor Acute kidney injury Due to septic shock Improving Schizoaffective disorder Continue lorazepam, Haldol, Depakote, Cogentin Hypothyroid Levothyroxine DVT prophylaxis with heparin subQ Full code reason for continued hospitalization: Awaiting cultures Quality Stroke Does the patient have a stroke diagnosis?: No VTE Prior VTE?: No VTE Risk Level:: Medical - low VTE Device Contraindication: N/A - Device Ordered VTE Drug Contraindication: N/A - Med Ordered
[2024-12-01] MEDS: traZODone HCL 25 MG HALFTAB PO ×2 (10:44→20:59)
[2024-12-01 12:00] VITALS: BP 134/72; PULSE 84; RESP 18; TEMP 36.6; O2SAT 92
--- NOTE | 2024-12-01 12:54 | MHC.SL.SWA ---
Addendum entered and electronically signed by Veronika Rob MS, CCC-LEAD PERSON 12/01/24 13:06: Recc NDD2 with THIN liquids, aspiration precautions, cueing pt to facilitate improved attention to task, meds crushed in puree or liquid. LEAD PERSON following. Original Note: Speech Pathologist Impression: Mild oral phase dysphagia d/t missing dentition, intermittent behavioral challenges that may impact oropharyngeal coordination Risk of Aspiration Due to: Psychological condition Recent extubation Impulsivity of PO intake Reduced ability to follow simple cues Abrupt episodes of emotional lability Dysphasia Diet Status: Liquid Consistency and Strategies for Safe Swallow: Liquid Intake Recommendation: Thin Liquid Intake Strategies: Solid Food Consistency: Dietary Recommendations: Grnd/Mech Altered (NDD2) Additional Modifications to Solid Foods: Oral Medication Intake: Crushed with Puree Please contact the pharmacy regarding appropriate crushable or liquid drug formulations that are available whenever modified delivery is recommended. Compensatory Strategies and Precautions to be Taken for Safe Swallow: Supervision While Eating and Drinking for Safe Swallow: Total Assistance (1:1) Foods to Avoid: Swallowing Recommended Treatments: Recommendation for Speech: Speech Therapy through [facility] Comment: Pt intermittently labile, persistently confused. Pt did not know he was in the hospital and perseverated on memories about his parents' college. Pt able to follow a few simple commands. Pt requesting specific foods like hot dogs with mustard, popcorn and gingerale, stating he will open the can himself. Pt accepted gingerale presented by RN in cup (with crushed meds), taking several consecutive sips with adequate oropharyngeal coordination. No overt s/s of aspiration observed with sips of thin liquids. Pt is missing several teeth but able to chew adequately in formulating bolus when eating saltines w/mustard. Pt observed to be impulsive and overstuff his mouth, unable to follow cues in reducing bite size. LEAD PERSON encouraged pt to alternate consistencies when chewing but pt unable to follow specific suggestion. No overt s/s of aspiration observed with moistened solids; mild residue evident on surface of pt teeth and tongue. Pt presents with press of speech, and inconsistent but extended pausing with flat affect. Pt observed to hold his breath momentarily when pausing. Voicing remained unchanged across PO intake, with fluctuations to prosody in presence of emotional lability. LEAD PERSON recc NDD2 with thins, supervision, aspiration precautions, meds crushed in liquid or puree. LEAD PERSON will monitor and adjust diet as indicated. MD notified, RN consulted. Frequency/Duration: Daily M-F Date Range for Service Req: Timeline to reassess: Employee Benefits Attorney Clinican/Clinical Fellow: No Supervisory Statement: I have reviewed and agree with the student/clinical fellow's documentation: N/A Speech Language Pathologist: Veronika Rob M.S., CCC-LEAD PERSON
[2024-12-01 16:00] VITALS: BP 139/85; PULSE 74; RESP 16; TEMP 36.6; O2SAT 97
[2024-12-01 19:57] VITALS: BP 160/92; PULSE 79; RESP 16; TEMP 36; O2SAT 97
[2024-12-02] VITALS (7 sets, daily range): BP systolic 100–144; BP diastolic 55–76; PULSE 73–97; RESP 16–20; TEMP 36.1–36.6; O2SAT 93–97; BMI 18.6
[2024-12-02] MEDS: traZODone HCL 25 MG HALFTAB PO ×2 (08:43→19:56)
[2024-12-02] MEDS: Divalproex Sodium Sprinkles 125 MG CAP.DR.SPR 1000 MG PO ×2 (08:43→19:46)
--- NOTE | 2024-12-02 09:50 | P.PNIM_ITS ---
Subjective Subjective Date of Service: 12/02/24 Interval History: feeling better Physical Exam 2 Exam: Exam: General: AO X 2, no acute distress Resp: CTA bilateral, no accessory muscles used CVS: S1,S2,RRR GI: soft, non tender, non distended Neuro: motor grossly intact, alert Psych: impairedinsight Vital Signs: Vital Signs: Last Vital Signs Temp 97.0 F 12/02/24 06:59 Pulse 73 12/02/24 06:59 Resp 16 12/02/24 06:59 BP 110/55 L 12/02/24 06:59 Pulse Ox 93 12/02/24 06:59 O2 Del Method Room Air 12/02/24 06:59 O2 Flow Rate 1 11/29/24 21:00 FiO2 24 11/29/24 13:31 BMI result Body Mass Index 18.6 Objective Data Active Medications Aspirin (Aspirin 81 Mg Tab.Chew) 81 mg PO DAILY [facility] Last Admin: 12/02/24 08:43 Dose: 81 mg Documented By: DENIS Benztropine Mesylate (Benztropine Mesylate 0.5 Mg Tablet) 0.5 mg PO BID [facility] Last Admin: 12/02/24 08:43 Dose: 0.5 mg Documented By: DENIS Divalproex Sodium (Divalproex Sodium Sprinkles 125 Mg ) 1,000 mg PO BID [facility] Last Admin: 12/02/24 08:43 Dose: 1,000 mg Documented By: DENIS Famotidine (Famotidine/Pf 20 Mg/2 Ml Vial) 20 mg IVPUSH BID [facility] Last Admin: 12/02/24 08:44 Dose: Not Given Documented By: DENIS Non-Admin Reason: No Access Famotidine (Famotidine 20 Mg Tablet) 20 mg PO DAILY [facility] Last Admin: 12/02/24 08:43 Dose: 20 mg Documented By: DENIS Haloperidol (Haloperidol 5 Mg Tablet) 15 mg PO TID [facility] Last Admin: 12/02/24 08:43 Dose: 15 mg Documented By: DENIS Heparin Sodium (Porcine) (Heparin Sodium,Porcine 5,000 Unit/Ml Vial) 5,000 unit SUBCUT Q8H [facility] Last Admin: 12/02/24 04:25 Dose: Not Given Documented By: TRE Non-Admin Reason: Physician Approved Levothyroxine Sodium (Levothyroxine Sodium 150 Mcg Tablet) 150 mcg PO DAILY@0600 [facility] Last Admin: 12/02/24 05:54 Dose: 150 mcg Documented By: TRE Lorazepam (Lorazepam 0.5 Mg Tablet) 0.5 mg PO TID [facility] Last Admin: 12/02/24 08:43 Dose: 0.5 mg Documented By: DENIS Meropenem (Meropenem 1 Gm Vial) 1 gm IVPUSH Q12H [facility] Thiamine HCl (Thiamine Hcl 100 Mg Tablet) 100 mg PO DAILY [facility] Last Admin: 12/02/24 08:43 Dose: 100 mg Documented By: DENIS Trazodone HCl (Trazodone Hcl 25 Mg Halftab) 25 mg PO BID [facility] Last Admin: 12/02/24 08:43 Dose: 25 mg Documented By: DENIS Labs 11/30/24 06:06 11/30/24 04:49 Microbiology Microbiology Results: Microbiology 11/28/24 Unknown Urine Culture - Final Urine clean catch - Clean Catch Midstream Escherichia coli Assessment and Plan (1) Septic shock: Status: Acute Plan 64M PMH copd, htn, ?adrenal insufficiency, schizoaffective disorder [facility], severe hypoxia, septic shock from uti and aspiratoin pneumonia, was admitted to ICU, intubated, on pressors. Patient was extubated on 11/29/2024 and downgraded to medical floor on 11/30/2024. Septic shock, acute metabolic encephalopathy, acute hypoxic respiratory failure due to aspiration pneumonia and urinary tract infection Now on room air and off pressors Mental status back to baseline Continue IV meropenem and follow up cultures, blood culture so far negative, urine culture grew ESBL ecoli will need to complete 2 week course via midline, can change to erapenem 1gm daily on discharge, end date 12/11/24 Incidental finding of dilated appendix - was seen by surgery felt this is benign Incidental finding of bilateral hydroureter without obstruction - seen by Urology recommended conservative management Questionable history of adrenal insufficiency Blood pressure has been high, hydrocortisone held, monitor Acute kidney injury Due to septic shock Improving refusing labs Schizoaffective disorder Continue lorazepam, Haldol, Depakote, Cogentin Hypothyroid Levothyroxine DVT prophylaxis with heparin subQ Full code reason for continued hospitalization: iv abx for esbl Quality Stroke Does the patient have a stroke diagnosis?: No VTE Prior VTE?: No VTE Risk Level:: Medical - low VTE Device Contraindication: N/A - Device Ordered VTE Drug Contraindication: N/A - Med Ordered
--- NOTE | 2024-12-02 10:24 | MHC.CLN ---
F/U PT EXTUBATED AND TRANSFERRED TO MEDICAL FLOOR DIET ADVANCED TO GRD M/S BR 15, REDNESS NOTED RECOMMEND ADDING ENSURE BID TO INCREASE KCALS SUPP TO PROVIDE 700KCALS, 40G PROTEIN MONITOR PO INTAKE AND ENCOURAGE SUPPLEMENTS
--- NOTE | 2024-12-02 11:58 | PM.EVENT ---
Event Note Date of Service: 12/02/24 Event Note: patient with baseline creatinine ~1.4 per outside labs. Here with esbl UTI, also had TRAY, creatinine trending downward, most recent 1.61, patient refusing repeat labs. GFR 43. No history of renal disease, diabetes, heart disease. Has COPD, schizophrenia. Nephrology consulted for PICC line clearance for antibiotic administration. Patient is ok for PICC line placement. Discussed with Dr Chadwick. Time Spent With Patient Time: Total time managing care of this patient today ____ minutes.
--- NOTE | 2024-12-02 14:47 | MHC.SL.SWA ---
Speech Pathologist Impression: Dysphagia secondary to mentation Risk of Aspiration Due to: Impulsivity when eating Poor self-monitoring Dysphasia Diet Status: Recc NDD2 with thin liquids, aspiration precautions, cueing to slow pace. Ok for pt to have 1/2 saltine crackers with mustard Liquid Consistency and Strategies for Safe Swallow: Liquid Intake Recommendation: Thin Liquid Intake Strategies: Small Sips Solid Food Consistency: Dietary Recommendations: Grnd/Mech Altered (NDD2) Additional Modifications to Solid Foods: Oral Medication Intake: Crushed with Puree Please contact the pharmacy regarding appropriate crushable or liquid drug formulations that are available whenever modified delivery is recommended. Compensatory Strategies and Precautions to be Taken for Safe Swallow: Sitting Upright (90 deg) Small Bites and Sips Alternate Liquids/Solids Supervision While Eating and Drinking for Safe Swallow: Direct Supervision (1:1) Foods to Avoid: Swallowing Recommended Treatments: Compens. Strategy Educat. Recommendation for Speech: Speech Therapy through [facility] Comment: Pt seen for dysphagia treatment, pt was perseverating on ordering food. Pt given option for snack, as preferred yesterday pt was interested in saltines with mustard. Pt needed cues from 1:1 sitter and CORN HUSKER to wait as CORN HUSKER prepared smaller portions (pt often overstuffs mouth when eating). Pt was agreeable to waiting. Pt tolerated approximately 12 halfs of crackers with mustard, with quick pacing but adequate oropharyngeal coordination. Pt did not want to sip liquid to moisten bites. Pt coughed x1 after eating, voicing remained clear. Recc continue with NDD2 with thins, 1:1 supervision and cueing to assist pt in slowing pace if possible. CORN HUSKER continues to follow.. Frequency/Duration: Daily M-F Date Range for Service Req: Timeline to reassess: Specimen Accessioner Clinican/Clinical Fellow: No Supervisory Statement: I have reviewed and agree with the student/clinical fellow's documentation: N/A Speech Language Pathologist: Veronika Rob M.S., [facility]
--- NOTE | 2024-12-02 15:22 | MHC.CM.PN ---
per rounds, pt. to have PICC line placed for 2 wks IV ABX, he can go back to [facility] once PICC line is in.
[2024-12-03 03:12] VITALS: BP 122/69; PULSE 80; RESP 18; TEMP 36.7; O2SAT 96
[2024-12-03 05:01] VITALS: BMI 18.7
[2024-12-03 07:57] VITALS: BP 96/60; PULSE 80; RESP 20; TEMP 37; O2SAT 94
[2024-12-03] MEDS: traZODone HCL 25 MG HALFTAB PO (08:43)
[2024-12-03] MEDS: Divalproex Sodium Sprinkles 125 MG CAP.DR.SPR 1000 MG PO ×2 (08:44→21:37)
--- NOTE | 2024-12-03 09:43 | P.PNIM_ITS ---
Subjective Subjective Date of Service: 12/03/24 Interval History: doesnt want iv Physical Exam 2 Exam: Exam: General: AO X 2, no acute distress Resp: CTA bilateral, no accessory muscles used CVS: S1,S2,RRR GI: soft, non tender, non distended Neuro: motor grossly intact, alert Psych: impairedinsight Vital Signs: Vital Signs: Last Vital Signs Temp 98.6 F 12/03/24 07:57 Pulse 80 12/03/24 07:57 Resp 20 12/03/24 07:57 BP 96/60 12/03/24 07:57 Pulse Ox 94 12/03/24 07:57 O2 Del Method Room Air 12/03/24 07:57 O2 Flow Rate 1 11/29/24 21:00 FiO2 24 11/29/24 13:31 BMI result Body Mass Index 18.7 Objective Data Active Medications Aspirin (Aspirin 81 Mg Tab.Chew) 81 mg PO DAILY [facility] Last Admin: 12/03/24 08:44 Dose: 81 mg Documented By: DENIS Benztropine Mesylate (Benztropine Mesylate 0.5 Mg Tablet) 0.5 mg PO BID [facility] Last Admin: 12/03/24 08:44 Dose: 0.5 mg Documented By: DENIS Divalproex Sodium (Divalproex Sodium Sprinkles 125 Mg ) 1,000 mg PO BID [facility] Last Admin: 12/03/24 08:44 Dose: 1,000 mg Documented By: DENIS Famotidine (Famotidine/Pf 20 Mg/2 Ml Vial) 20 mg IVPUSH BID [facility] Last Admin: 12/03/24 08:45 Dose: Not Given Documented By: DENIS Non-Admin Reason: PT REFUSED NEW IV ACCESS Famotidine (Famotidine 20 Mg Tablet) 20 mg PO DAILY [facility] Last Admin: 12/03/24 08:44 Dose: 20 mg Documented By: DENIS Haloperidol (Haloperidol 5 Mg Tablet) 15 mg PO TID [facility] Last Admin: 12/03/24 08:43 Dose: 15 mg Documented By: DENIS Heparin Sodium (Porcine) (Heparin Sodium,Porcine 5,000 Unit/Ml Vial) 5,000 unit SUBCUT Q8H [facility] Last Admin: 12/03/24 09:17 Dose: 5,000 unit Documented By: DENIS Levothyroxine Sodium (Levothyroxine Sodium 150 Mcg Tablet) 150 mcg PO DAILY@0600 [facility] Last Admin: 12/03/24 07:07 Dose: Not Given Documented By: TRE Non-Admin Reason: Patient Refused Lorazepam (Lorazepam 0.5 Mg Tablet) 0.5 mg PO TID [facility] Last Admin: 12/03/24 08:43 Dose: 0.5 mg Documented By: DENIS Meropenem (Meropenem 1 Gm Vial) 1 gm IVPUSH Q12H [facility] Last Admin: 12/03/24 09:38 Dose: Not Given Documented By: DENIS Non-Admin Reason: No Access Thiamine HCl (Thiamine Hcl 100 Mg Tablet) 100 mg PO DAILY [facility] Last Admin: 12/03/24 08:43 Dose: 100 mg Documented By: DENIS Trazodone HCl (Trazodone Hcl 25 Mg Halftab) 25 mg PO BID [facility] Last Admin: 12/03/24 08:43 Dose: 25 mg Documented By: DENIS Labs 11/30/24 06:06 11/30/24 04:49 Microbiology Microbiology Results: Microbiology 11/28/24 Unknown Urine Culture - Final Urine clean catch - Clean Catch Midstream Escherichia coli Assessment and Plan (1) Septic shock: Status: Acute Plan 64M PMH copd, htn, ?adrenal insufficiency, schizoaffective disorder [facility], severe hypoxia, septic shock from uti and aspiratoin pneumonia, was admitted to ICU, intubated, on pressors. Patient was extubated on 11/29/2024 and downgraded to medical floor on 11/30/2024. Septic shock, acute metabolic encephalopathy, acute hypoxic respiratory failure due to aspiration pneumonia and urinary tract infection Now on room air and off pressors Mental status back to baseline Continue IV meropenem and follow up cultures, blood culture so far negative, urine culture grew ESBL ecoli will need to complete 2 week course via midline, can change to erapenem 1gm daily on discharge, end date 12/11/24 - however, patient refusing IV, will try to get midline Incidental finding of dilated appendix - was seen by surgery felt this is benign Incidental finding of bilateral hydroureter without obstruction - seen by Urology recommended conservative management Questionable history of adrenal insufficiency pneumatic press hand downtrending, will restart hydrocortisone Acute kidney injury Due to septic shock Improving refusing labs Schizoaffective disorder Continue lorazepam, Haldol, Depakote, Cogentin Hypothyroid Levothyroxine DVT prophylaxis with heparin subQ Full code reason for continued hospitalization: iv abx for esbl Quality Stroke Does the patient have a stroke diagnosis?: No VTE Prior VTE?: No VTE Risk Level:: Medical - low VTE Device Contraindication: N/A - Device Ordered VTE Drug Contraindication: N/A - Med Ordered
[2024-12-03 11:15] VITALS: BP 96/55; PULSE 74; RESP 20; TEMP 36.8; O2SAT 96
[2024-12-03 15:39] VITALS: BP 126/57; PULSE 94; RESP 18; TEMP 36.6; O2SAT 97
--- NOTE | 2024-12-03 17:51 | MHC.SL.SWA ---
Speech Pathologist Impression: Risk of Aspiration Due to: Dysphasia Diet Status: Recommend patient continue on Ground Mechanical/NDD2 with THIN liquids, pills crushed in puree Liquid Consistency and Strategies for Safe Swallow: Liquid Intake Recommendation: Thin Liquid Intake Strategies: Small Sips Solid Food Consistency: Dietary Recommendations: Grnd/Mech Altered (NDD2) Additional Modifications to Solid Foods: Oral Medication Intake: Crushed with Puree Please contact the pharmacy regarding appropriate crushable or liquid drug formulations that are available whenever modified delivery is recommended. Compensatory Strategies and Precautions to be Taken for Safe Swallow: Sitting Upright (90 deg) Small Bites and Sips Alternate Liquids/Solids Supervision While Eating and Drinking for Safe Swallow: Direct Supervision (1:1) Foods to Avoid: Swallowing Recommended Treatments: Compens. Strategy Educat. Recommendation for Speech: Speech Therapy through [facility] Comment: Patient seen at breakfast, with sitter present and RN intermittently present, attempting to give patient an injection, which he was pointedly resisting. Patient had tray with eggs, bananas, coffee and juices. Patient was quite demonstrative, verbally inappropriate, and demanding various things, (e.g. ICE COFFEE! , which RN Ly very kindly then provided a cup with ice to turn his coffee into 'iced. ). Patient inititially was feeding himself his eggs, commented that they were good!, but then began to demand to be fed. HAND BINDER STRIPPER adjusted tray so that food was closer to him and encouraged him to continue to eat independently which he did, finishing the eggs. When told there were mashed bananas, patient stated I LOVE BANANAS! and was guided to the container which was opened for him, and he began to eat this item as well. Patient was also observed drinking the iced coffee her requested with no difficulty. Given patient's level of confusion and dysregulation, current diet presents as safe, accessible and appropriate. Recommend patient continue on Ground Mechanical/NDD2 with THIN liquids, pills crushed in puree. Frequency/Duration: Daily M-F Date Range for Service Req: Timeline to reassess: Logistic Manager Clinican/Clinical Fellow: No Supervisory Statement: I have reviewed and agree with the student/clinical fellow's documentation: N/A Speech Language Pathologist: Courtney Tijerina M.A., CCC-HAND BINDER STRIPPER
[2024-12-03 19:51] VITALS: BP 102/52; PULSE 88; RESP 16; TEMP 36.8; O2SAT 93
[2024-12-04] VITALS: BP 101/52; PULSE 72; RESP 18; TEMP 36.6; O2SAT 94
[2024-12-04 03:07] VITALS: BP 103/57; PULSE 63; RESP 18; TEMP 36.3; O2SAT 94
[2024-12-04 06:00] VITALS: BMI 18.7
[2024-12-04 08:00] VITALS: BP 113/51; PULSE 69; RESP 17; TEMP 36.4; O2SAT 94
[2024-12-04] MEDS: Divalproex Sodium Sprinkles 125 MG CAP.DR.SPR 1000 MG PO ×2 (09:23→20:48)
[2024-12-04] MEDS: traZODone HCL 25 MG HALFTAB PO ×2 (09:24→20:46)
--- NOTE | 2024-12-04 11:14 | MHC.CLN ---
F/U PO INTAKE 0-50% DIET RX: GRD M/S RECEIVING ENSURE BID TO INCREASE KCALS SUPP PROVIDES 700KCALS, 40G PROTEIN MONITOR PO INTAKE AND ENCOURAGE SUPPLEMENTS
--- NOTE | 2024-12-04 11:30 | MHC.SL.SWA ---
Speech Pathologist Impression: Mild oropharyngeal dysphagia d/t missing dentition, impulsivity, reduced ability to follow cues Risk of Aspiration Due to: Behavioral variability Poor safety awareness Dysphasia Diet Status: Recc NDD2 with thins, supervision, aspiration precautions, meds crushed in liquid or puree. CEO & CO FOUNDER will monitor and adjust diet as indicated. *Half size pieces of saltines with mustard permitted for snack at pt request, 1:1 supervision at all times with PO intake Liquid Consistency and Strategies for Safe Swallow: Liquid Intake Recommendation: Thin Liquid Intake Strategies: Small Sips Solid Food Consistency: Dietary Recommendations: Grnd/Mech Altered (NDD2) Additional Modifications to Solid Foods: Oral Medication Intake: Crushed with Puree Please contact the pharmacy regarding appropriate crushable or liquid drug formulations that are available whenever modified delivery is recommended. Compensatory Strategies and Precautions to be Taken for Safe Swallow: Sitting Upright (90 deg) Small Bites and Sips Alternate Liquids/Solids Supervision While Eating and Drinking for Safe Swallow: Direct Supervision (1:1) Foods to Avoid: Swallowing Recommended Treatments: Compens. Strategy Educat. Recommendation for Speech: Speech Therapy through [facility] Comment: Pt seen for dysphagia treatment, RN consulted, sitter at bedside. Pt confused but pleasant. Pt requested saltines with mustard and gingerale. CEO & CO FOUNDER prepared 1/2 sized crackers with thin coating of mustard. Pt ate with rapid rate but adequate oropharyngeal coordination. Pt stated 'my teeth are fine!' when CEO & CO FOUNDER encouraged pt to slow pace. No overt s/s of aspiration with mustard coated saltines cut into smaller pieces. Recommend patient continue on Ground Mechanical/NDD2 with THIN liquids, pills crushed in puree, snack of saltines prepared for pt as noted, 1:1 supervision. . Frequency/Duration: Daily M-F Date Range for Service Req: Timeline to reassess: Rehab Nursing Tech Clinican/Clinical Fellow: No Supervisory Statement: I have reviewed and agree with the student/clinical fellow's documentation: N/A Speech Language Pathologist: Veronika Rob M.S., CCC-CEO & CO FOUNDER
[2024-12-04] MEDS: OLANZapine 10 MG VIAL 5 MG IM ×2 (11:46→15:59)
[2024-12-04 15:58] VITALS: BP 132/84; PULSE 79; RESP 18; TEMP 35.8; O2SAT 98
--- NOTE | 2024-12-04 17:21 | HO.PM.IMPN ---
Subjective Subjective Date of Service: 12/04/24 Interval History: uti Review of Systems Review of Systems: Yes all other systems are reviewed and are negative Physical Exam Exam: Exam: General: AO X 2, no acute distress Resp: CTA bilateral, no accessory muscles used CVS: S1,S2,RRR GI: soft, non tender, non distended Neuro: motor grossly intact, alert Psych: impairedinsight Vital Signs: Vital Signs: Last Vital Signs Temp 96.5 F L 12/04/24 15:58 Pulse 79 12/04/24 15:58 Resp 18 12/04/24 15:58 BP 132/84 12/04/24 15:58 Pulse Ox 98 12/04/24 15:58 O2 Del Method Room Air 12/04/24 08:00 O2 Flow Rate 1 11/29/24 21:00 FiO2 24 11/29/24 13:31 BMI result Body Mass Index 18.7 Objective Data Active Medications Aspirin (Aspirin 81 Mg Tab.Chew) 81 mg PO DAILY [facility] Last Admin: 12/04/24 09:24 Dose: 81 mg Documented By: DENIS Benztropine Mesylate (Benztropine Mesylate 0.5 Mg Tablet) 0.5 mg PO BID [facility] Last Admin: 12/04/24 09:24 Dose: 0.5 mg Documented By: DENIS Divalproex Sodium (Divalproex Sodium Sprinkles 125 Mg ) 1,000 mg PO BID [facility] Last Admin: 12/04/24 09:23 Dose: 1,000 mg Documented By: DENIS Famotidine (Famotidine/Pf 20 Mg/2 Ml Vial) 20 mg IVPUSH BID [facility] Last Admin: 12/04/24 09:24 Dose: Not Given Documented By: DENIS Non-Admin Reason: No Access Famotidine (Famotidine 20 Mg Tablet) 20 mg PO DAILY [facility] Last Admin: 12/04/24 09:24 Dose: 20 mg Documented By: DENIS Haloperidol (Haloperidol 5 Mg Tablet) 15 mg PO TID [facility] Last Admin: 12/04/24 15:28 Dose: 15 mg Documented By: DENIS Heparin Sodium (Porcine) (Heparin Sodium,Porcine 5,000 Unit/Ml Vial) 5,000 unit SUBCUT Q8H [facility] Last Admin: 12/04/24 09:38 Dose: 5,000 unit Documented By: DENIS Hydrocortisone (Hydrocortisone 10 Mg Tablet) 15 mg PO BEDTIME [facility] Last Admin: 12/03/24 21:28 Dose: 15 mg Documented By: ALEJO Hydrocortisone (Hydrocortisone 10 Mg Tablet) 15 mg PO DAILY [facility] Last Admin: 12/04/24 09:24 Dose: 15 mg Documented By: DENIS Levothyroxine Sodium (Levothyroxine Sodium 150 Mcg Tablet) 150 mcg PO DAILY@0600 [facility] Last Admin: 12/04/24 06:10 Dose: Not Given Documented By: ALEJO Non-Admin Reason: Patient Refused Lorazepam (Lorazepam 0.5 Mg Tablet) 0.5 mg PO TID [facility] Last Admin: 12/04/24 15:28 Dose: 0.5 mg Documented By: DENIS Meropenem (Meropenem 1 Gm Vial) 1 gm IVPUSH Q12H [facility] Last Admin: 12/04/24 11:56 Dose: Not Given Documented By: DENIS Non-Admin Reason: No Access Olanzapine (Olanzapine 10 Mg Vial) 5 mg IM ONCE PRN PRN Reason: IR procedure Last Admin: 12/04/24 11:46 Dose: 5 mg Documented By: DENIS Thiamine HCl (Thiamine Hcl 100 Mg Tablet) 100 mg PO DAILY [facility] Last Admin: 12/04/24 09:24 Dose: 100 mg Documented By: DENIS Trazodone HCl (Trazodone Hcl 25 Mg Halftab) 25 mg PO BID [facility] Last Admin: 12/04/24 09:24 Dose: 25 mg Documented By: DENIS Labs 11/30/24 06:06 11/30/24 04:49 Microbiology Microbiology Results: Microbiology 11/28/24 17:07 Blood Culture - Final Blood - Venous No growth after 5 days. 11/28/24 17:07 Blood Culture - Final Blood - Venous No growth after 5 days. Assessment and Plan (1) Septic shock: Status: Acute Plan 64M PMH copd, htn, ?adrenal insufficiency, schizoaffective disorder [facility]s, severe hypoxia, septic shock from uti and aspiratoin pneumonia, was admitted to ICU, intubated, on pressors. Patient was extubated on 11/29/2024 and downgraded to medical floor on 11/30/2024. Septic shock, acute metabolic encephalopathy, acute hypoxic respiratory failure due to aspiration pneumonia and urinary tract infection Now on room air and off pressors Mental status back to baseline Continue IV meropenem and follow up cultures, blood culture so far negative, urine culture grew ESBL ecoli will need to complete 2 week course via midline, can change to erapenem 1gm daily on discharge, end date 12/11/24 - however, patient refusing IV, will try to get midline Incidental finding of dilated appendix - was seen by surgery felt this is benign Incidental finding of bilateral hydroureter without obstruction - seen by Urology recommended conservative management Questionable history of adrenal insufficiency psych arnp downtrending, will restart hydrocortisone Acute kidney injury Due to septic shock Improving refusing labs Schizoaffective disorder Continue lorazepam, Haldol, Depakote, Cogentin Hypothyroid Levothyroxine DVT prophylaxis with heparin subQ Full code reason for continued hospitalization: iv abx for esbl Quality Stroke Does the patient have a stroke diagnosis?: No VTE Prior VTE?: No VTE Risk Level:: Medical - low VTE Device Contraindication: N/A - Device Ordered VTE Drug Contraindication: N/A - Med Ordered
[2024-12-04 19:44] VITALS: BP 137/76; PULSE 95; RESP 20; TEMP 36.4; O2SAT 98
[2024-12-05 03:21] VITALS: BP 161/70; PULSE 104; RESP 20; TEMP 36.9; O2SAT 98
[2024-12-05 06:00] VITALS: BMI 18.2
[2024-12-05 07:34] VITALS: BP 121/68; PULSE 89; RESP 18; TEMP 37.2; O2SAT 95
[2024-12-05] MEDS: traZODone HCL 25 MG HALFTAB PO (08:08)
[2024-12-05] MEDS: Divalproex Sodium Sprinkles 125 MG CAP.DR.SPR 1000 MG PO (08:09)
--- NOTE | 2024-12-05 08:22 | HO.PM.IMPN ---
Subjective Subjective Date of Service: 12/05/24 Interval History: uti Review of Systems Review of Systems: Yes all other systems are reviewed and are negative Physical Exam Vital Signs: Vital Signs: Last Vital Signs Temp 98.9 F 12/05/24 07:34 Pulse 89 12/05/24 07:34 Resp 18 12/05/24 07:34 BP 121/68 12/05/24 07:34 Pulse Ox 95 12/05/24 07:34 O2 Del Method Room Air 12/05/24 07:34 O2 Flow Rate 1 11/29/24 21:00 FiO2 24 11/29/24 13:31 BMI result Body Mass Index 18.2 Objective Data Active Medications Aspirin (Aspirin 81 Mg Tab.Chew) 81 mg PO DAILY [facility] Last Admin: 12/04/24 09:24 Dose: 81 mg Documented By: DENIS Benztropine Mesylate (Benztropine Mesylate 0.5 Mg Tablet) 0.5 mg PO BID [facility] Last Admin: 12/04/24 20:48 Dose: 0.5 mg Documented By: ANGELITO Divalproex Sodium (Divalproex Sodium Sprinkles 125 Mg ) 1,000 mg PO BID [facility] Last Admin: 12/04/24 20:48 Dose: 1,000 mg Documented By: ANGELITO Famotidine (Famotidine/Pf 20 Mg/2 Ml Vial) 20 mg IVPUSH BID [facility] Last Admin: 12/04/24 20:56 Dose: Not Given Documented By: ANGELITO Non-Admin Reason: No Access Famotidine (Famotidine 20 Mg Tablet) 20 mg PO DAILY [facility] Last Admin: 12/04/24 09:24 Dose: 20 mg Documented By: DENIS Haloperidol (Haloperidol 5 Mg Tablet) 15 mg PO TID [facility] Last Admin: 12/04/24 20:47 Dose: 15 mg Documented By: ANGELITO Heparin Sodium (Porcine) (Heparin Sodium,Porcine 5,000 Unit/Ml Vial) 5,000 unit SUBCUT Q8H [facility] Last Admin: 12/05/24 00:59 Dose: Not Given Documented By: ARNOLD Non-Admin Reason: Patient Refused Hydrocortisone (Hydrocortisone 10 Mg Tablet) 15 mg PO BEDTIME [facility] Last Admin: 12/04/24 20:47 Dose: 15 mg Documented By: ANGELITO Hydrocortisone (Hydrocortisone 10 Mg Tablet) 15 mg PO DAILY [facility] Last Admin: 12/04/24 09:24 Dose: 15 mg Documented By: DENIS Levothyroxine Sodium (Levothyroxine Sodium 150 Mcg Tablet) 150 mcg PO DAILY@0600 [facility] Last Admin: 12/05/24 06:06 Dose: 150 mcg Documented By: ARNOLD Lorazepam (Lorazepam 0.5 Mg Tablet) 0.5 mg PO TID [facility] Last Admin: 12/04/24 20:46 Dose: 0.5 mg Documented By: ANGELITO Meropenem (Meropenem 1 Gm Vial) 1 gm IVPUSH Q12H [facility] Last Admin: 12/04/24 20:56 Dose: Not Given Documented By: ANGELITO Non-Admin Reason: No Access Olanzapine (Olanzapine 10 Mg Vial) 5 mg IM ONCE PRN PRN Reason: IR procedure Last Admin: 12/04/24 11:46 Dose: 5 mg Documented By: DENIS Thiamine HCl (Thiamine Hcl 100 Mg Tablet) 100 mg PO DAILY [facility] Last Admin: 12/04/24 09:24 Dose: 100 mg Documented By: DENIS Trazodone HCl (Trazodone Hcl 25 Mg Halftab) 25 mg PO BID [facility] Last Admin: 12/04/24 20:46 Dose: 25 mg Documented By: ANGELITO Labs 11/30/24 06:06 11/30/24 04:49 Assessment and Plan (1) Septic shock: Status: Acute Plan 64M PMH copd, htn, ?adrenal insufficiency, schizoaffective disorder [facility], severe hypoxia, septic shock from uti and aspiratoin pneumonia, was admitted to ICU, intubated, on pressors. Patient was extubated on 11/29/2024 and downgraded to medical floor on 11/30/2024. Septic shock, acute metabolic encephalopathy, acute hypoxic respiratory failure due to aspiration pneumonia and urinary tract infection Now on room air and off pressors Mental status back to baseline Continue IV meropenem and follow up cultures, blood culture so far negative, urine culture grew ESBL ecoli patient got meropenem from 11/28 to 11/30 ,midline unsuccessful yesterday . we placed another iv ( after multiple attemps):on meropenem d/w id if can not get iv ,then will reach out to guardian Incidental finding of dilated appendix - was seen by surgery felt this is benign, has 1 episode of vomiting ,no other symptoms -as per surgery if persistent vomiting then will need to repear abd imaging. Incidental finding of bilateral hydroureter without obstruction - seen by Urology recommended conservative management Questionable history of adrenal insufficiency suture polisher downtrending, will restart hydrocortisone Acute kidney injury Due to septic shock Improving refusing labs Schizoaffective disorder Continue lorazepam, Haldol, Depakote, Cogentin Hypothyroid Levothyroxine DVT prophylaxis with heparin subQ Full code reason for continued hospitalization: iv abx for esbl Quality Stroke Does the patient have a stroke diagnosis?: No VTE Prior VTE?: No VTE Risk Level:: Medical - low VTE Device Contraindication: N/A - Device Ordered VTE Drug Contraindication: N/A - Med Ordered
--- NOTE | 2024-12-05 09:55 | MHC.SL.SWA ---
Speech Pathologist Impression: Risk of Aspiration Due to: Dysphasia Diet Status: Recommend upgrade to Chopped/Advanced (NDD3) continue on thin liquids, pills crushed in puree. Liquid Consistency and Strategies for Safe Swallow: Liquid Intake Recommendation: Thin Liquid Intake Strategies: Small Sips Solid Food Consistency: Dietary Recommendations: Chopped/Advanced (NDD3) Additional Modifications to Solid Foods: Oral Medication Intake: Crushed with Puree Please contact the pharmacy regarding appropriate crushable or liquid drug formulations that are available whenever modified delivery is recommended. Compensatory Strategies and Precautions to be Taken for Safe Swallow: Sitting Upright (90 deg) Small Bites and Sips Alternate Liquids/Solids Supervision While Eating and Drinking for Safe Swallow: Direct Supervision (1:1) Foods to Avoid: Swallowing Recommended Treatments: Compens. Strategy Educat. Recommendation for Speech: Speech Therapy through [facility] Comment: Patient seen at breakfast. Patient quite exuberant and demonstrative, but mostly pleasant this morning, asked for another container of milk, which was retrieved for him. Patient with c/o about textures of yogurt, oatmeal ( makes me sick! ) and also averse to the eggs this morning. Patient instead drank two containers of milk, and was mildly erratic about taking too big a gulp, resulting in one episode of coughing during this observation. Patient was given his chocolate shake (Ensure) in the coffee cup that came with tray, which patient then readily drank. Given patient's aversion to puree textures, and poor, general po intake, recommend trial of upgrade to Chopped/Advanced (NDD3) to provide patient with more varied, but still softer, precut food. Patient with CONVENTIONS ASSISTANT had repeatedly had trials of crackers (considered a regular texture) without incident, so likely can tolerate and advancement. CONVENTIONS ASSISTANT upgraded diet in advance, advised RN, will continue to follow for tolerance. *Half size pieces of saltines with mustard permitted for snack at pt request, 1:1 supervision at all times with PO intake. Frequency/Duration: Daily M-F Date Range for Service Req: Timeline to reassess: Make Up Man Clinican/Clinical Fellow: No Supervisory Statement: I have reviewed and agree with the student/clinical fellow's documentation: N/A Speech Language Pathologist: Courtney Tijerina M.A., CCC-CONVENTIONS ASSISTANT
[2024-12-05] MEDS: oxyCODONE HCl Immed Release 5 MG TABLET PO (10:26)
[2024-12-05] MEDS: OLANZapine 10 MG VIAL IM (10:37)
[2024-12-05 11:45] VITALS: BP 138/69; TEMP 36.8; O2SAT 92
--- NOTE | 2024-12-05 12:57 | P.CNPS_ITS ---
History of Present Illness Date of Service: 12/05/24 Chief Complaint: Septic Shock Reason for Consult: Interfering with medical treatments/schizophrenia Requesting physician: Canelo Montes Discussed with referring provider: Yes Sources of Information: patient interviewed and chart reviewed HPI Narrative: Patient is a 64 year old male with hx of copd, htn, ?adrenal insufficiency, schizoaffective disorder [facility]s, severe hypoxia, septic shock from uti and aspiratoin pneumonia, was admitted to ICU, intubated, on pressors. Patient was extubated on 11/29/2024 and downgraded to medical floor on 11/30/2024. Psychiatric consult placed for: Interfering with medical treatments/schizophrenia During assessment, pt presents oriented to self. grandiose. labile. disorganized. poor historian. 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 I came to the hospital because I'm hurting nutrition ruvalcaba. I'm hungry. I study martial art styles and my feet are dangerous . Patient denies SI/HI. per nursing staff, pt observed responding to internal stimuli at times; however patient denied at assessment and was not observed responding to internal stimuli. When discussing why he has been refusing IV treatment; pt stated, I don't like needles. I'll take the pills with a Coke or Pepsi . Dr. Montes notified. Past Psychiatric History: Unable to obtain d/t pt being poor historian. Medical Evaluation Reviewed: Yes Diagnostics Vital Signs (24Hr): Vital Signs - 24 hr 12/04/24 15:58 12/04/24 19:44 12/05/24 03:21 Temperature 96.5 F L 97.5 F 98.4 F Pulse Rate 79 95 104 H Respiratory Rate 18 20 20 Blood Pressure 132/84 137/76 161/70 H Pulse Oximetry 98 98 98 Oxygen Delivery Method Room Air Room Air 12/05/24 07:34 12/05/24 11:45 Temperature 98.9 F 98.2 F Pulse Rate 89 Respiratory Rate 18 Blood Pressure 121/68 138/69 Pulse Oximetry 95 92 Oxygen Delivery Method Room Air Room Air BMI result Body Mass Index 18.2 Labs 11/30/24 06:06 11/30/24 04:49 Mental Status Exam Mental Status Exam Patient Appearance: Disheveled Patient Orientation: Person Level of Consciousness: Awake Patient Behavior: Appropriate and Good Eye Contact Mood Description: Labile Affect Description: Constricted Ability to Follow Directions: Good Speech Pattern: Slurred Delusions: Grandiose Thought Process: Disoriented Thought Content: positive for Flight of Ideas and positive for Disoriented Medications Medications Current Medications Aspirin (Aspirin 81 Mg Tab.Chew) 81 mg PO DAILY [facility] Last Admin: 12/05/24 08:08 Dose: 81 mg Benztropine Mesylate (Benztropine Mesylate 0.5 Mg Tablet) 0.5 mg PO BID [facility] Last Admin: 12/05/24 08:08 Dose: 0.5 mg Divalproex Sodium (Divalproex Sodium Sprinkles 125 Mg Cap.) 1,000 mg PO BID [facility] Last Admin: 12/05/24 08:09 Dose: 1,000 mg Famotidine (Famotidine/Pf 20 Mg/2 Ml Vial) 20 mg IVPUSH BID [facility] Last Admin: 12/05/24 08:24 Dose: Not Given Famotidine (Famotidine 20 Mg Tablet) 20 mg PO DAILY [facility] Last Admin: 12/05/24 08:08 Dose: 20 mg Haloperidol (Haloperidol 5 Mg Tablet) 15 mg PO TID [facility] Last Admin: 12/05/24 08:09 Dose: 15 mg Heparin Sodium (Porcine) (Heparin Sodium,Porcine 5,000 Unit/Ml Vial) 5,000 unit SUBCUT Q8H [facility] Last Admin: 12/05/24 08:23 Dose: Not Given Hydrocortisone (Hydrocortisone 10 Mg Tablet) 15 mg PO BEDTIME [facility] Last Admin: 12/04/24 20:47 Dose: 15 mg Hydrocortisone (Hydrocortisone 10 Mg Tablet) 15 mg PO DAILY [facility] Last Admin: 12/05/24 08:09 Dose: 15 mg Levothyroxine Sodium (Levothyroxine Sodium 150 Mcg Tablet) 150 mcg PO DAILY@0600 [facility] Last Admin: 12/05/24 06:06 Dose: 150 mcg Lorazepam (Lorazepam 0.5 Mg Tablet) 0.5 mg PO TID [facility] Last Admin: 12/05/24 08:08 Dose: 0.5 mg Meropenem (Meropenem 1 Gm Vial) 1 gm IVPUSH Q12H [facility] Last Admin: 12/05/24 08:24 Dose: Not Given Olanzapine (Olanzapine 10 Mg Vial) 5 mg IM ONCE PRN PRN Reason: IR procedure Last Admin: 12/04/24 11:46 Dose: 5 mg Thiamine HCl (Thiamine Hcl 100 Mg Tablet) 100 mg PO DAILY [facility] Last Admin: 12/05/24 08:08 Dose: 100 mg Trazodone HCl (Trazodone Hcl 25 Mg Halftab) 25 mg PO BID [facility] Last Admin: 12/05/24 08:08 Dose: 25 mg Allergies Allergies Allergy/AdvReac Type Severity Reaction Status Date / Time amprenavir Allergy Unknown Verified 11/28/24 16:55 cephaloridine Allergy Unknown Verified 11/28/24 16:55 clozapine Allergy Unknown Verified 11/28/24 16:55 Penicillins Allergy Unknown Verified 11/28/24 16:55 Phenothiazines Allergy Unknown Verified 11/28/24 16:55 Sulfa (Sulfonamide Allergy Unknown Verified 11/28/24 16:55 Antibiotics) Assessment & Plan Assessment & Plan (1) Schizophrenia: Status: Acute Code(s): F20.9 - Schizophrenia, unspecified Plan Recommendations: -?give oral antibiotics since patient is agreeable to p.o. medications as opposed to receiving IV -continue home psychiatric medications -invoke healthcare proxy if patient continues to refuse necessary medical treatment Total time managing care of this patient today _30___ minutes. Patient educated on: medication risk/benefits and medical condition
--- NOTE | 2024-12-05 14:36 | PM.PNGS ---
Subjective Subjective Date of Service: 12/05/24 Interval history: Patient had been doing well, but had episode of vomiting with 2L fluid per RN. Asked to reassess patient given his CT scan findings on admission of enlarged appendix. Patient is currently denying any pain. He denies any further nausea and is tolerating liquids currently. He is passing flatus, last BM yesterday. Physical Exam Vital Signs: Vital Signs: Last Vital Signs Temp 98.2 F 12/05/24 11:45 Pulse 89 12/05/24 07:34 Resp 18 12/05/24 07:34 BP 138/69 12/05/24 11:45 Pulse Ox 92 12/05/24 11:45 O2 Del Method Room Air 12/05/24 11:45 O2 Flow Rate 1 11/29/24 21:00 FiO2 24 11/29/24 13:31 BMI result Body Mass Index 18.2 Const: General: comfortable, no acute distress and alert Resp: Effort & Inspection: normal respiratory effort GI: Other: mildly distended, soft nontender Inspection: No scar Palpation (GI): not firm, no guarding and not rigid Skin: General skin exam: no rashes or lesions noted Objective Data Active Medications Aspirin (Aspirin 81 Mg Tab.Chew) 81 mg PO DAILY [facility] Last Admin: 12/05/24 08:08 Dose: 81 mg Documented By: AMBERLY Benztropine Mesylate (Benztropine Mesylate 0.5 Mg Tablet) 0.5 mg PO BID [facility] Last Admin: 12/05/24 08:08 Dose: 0.5 mg Documented By: AMBERLY Divalproex Sodium (Divalproex Sodium Sprinkles 125 Mg ) 1,000 mg PO BID [facility] Last Admin: 12/05/24 08:09 Dose: 1,000 mg Documented By: AMBERLY Famotidine (Famotidine/Pf 20 Mg/2 Ml Vial) 20 mg IVPUSH BID [facility] Last Admin: 12/05/24 08:24 Dose: Not Given Documented By: AMBERLY Non-Admin Reason: No Access Famotidine (Famotidine 20 Mg Tablet) 20 mg PO DAILY [facility] Last Admin: 12/05/24 08:08 Dose: 20 mg Documented By: AMBERLY Haloperidol (Haloperidol 5 Mg Tablet) 15 mg PO TID [facility] Last Admin: 12/05/24 14:17 Dose: 15 mg Documented By: SUDHAKAR Heparin Sodium (Porcine) (Heparin Sodium,Porcine 5,000 Unit/Ml Vial) 5,000 unit SUBCUT Q8H [facility] Last Admin: 12/05/24 08:23 Dose: Not Given Documented By: AMBERLY Non-Admin Reason: Patient Refused Hydrocortisone (Hydrocortisone 10 Mg Tablet) 15 mg PO BEDTIME [facility] Last Admin: 12/04/24 20:47 Dose: 15 mg Documented By: ANGELITO Hydrocortisone (Hydrocortisone 10 Mg Tablet) 15 mg PO DAILY [facility] Last Admin: 12/05/24 08:09 Dose: 15 mg Documented By: AMBERLY Levothyroxine Sodium (Levothyroxine Sodium 150 Mcg Tablet) 150 mcg PO DAILY@0600 [facility] Last Admin: 12/05/24 06:06 Dose: 150 mcg Documented By: ARNOLD Lorazepam (Lorazepam 0.5 Mg Tablet) 0.5 mg PO TID [facility] Last Admin: 12/05/24 14:17 Dose: 0.5 mg Documented By: SUDHAKAR Meropenem (Meropenem 1 Gm Vial) 1 gm IVPUSH Q12H [facility] Last Admin: 12/05/24 14:25 Dose: 1 gm Documented By: SUDHAKAR Olanzapine (Olanzapine 10 Mg Vial) 5 mg IM ONCE PRN PRN Reason: IR procedure Last Admin: 12/04/24 11:46 Dose: 5 mg Documented By: DENIS Thiamine HCl (Thiamine Hcl 100 Mg Tablet) 100 mg PO DAILY [facility] Last Admin: 12/05/24 08:08 Dose: 100 mg Documented By: AMBERLY Trazodone HCl (Trazodone Hcl 25 Mg Halftab) 25 mg PO BID [facility] Last Admin: 12/05/24 08:08 Dose: 25 mg Documented By: AMBERLY Labs 11/30/24 06:06 11/30/24 04:49 Procedures Date of Service Date of Service: 12/05/24 Progress Note: A&P Assessment and plan (1) Vomiting: Status: Acute Plan 64 year old male with PMH of COPD, hypertension/hypocortisolism admitted for septic shock, acute metabolic encephalopathy, acute hypoxic respiratory failure due to aspiration pneumonia and urinary tract infection. CT scan on admission had dilated appendix with no surrounding inflammatory changes to indicate acute appendicitis. Asked to reevaluate due to large episode of vomiting. Otherwise, he is well appearing. His abdomen is very benign and soft, nontender. He is mildly distended. If has persistent vomiting, recommend repeat CT scan. Time Spent With Patient Time: Total time managing care of this patient today ____ minutes. Quality Stroke Does the patient have a stroke diagnosis?: No VTE Prior VTE?: No VTE Risk Level:: Medical - low VTE Device Contraindication: N/A - Device Ordered VTE Drug Contraindication: N/A - Med Ordered
[2024-12-05 15:44] VITALS: BP 143/68; PULSE 89; RESP 18; TEMP 36.6; O2SAT 96
[2024-12-05 19:49] VITALS: BP 136/60; PULSE 85; RESP 20; TEMP 36.8; O2SAT 97
[2024-12-06] VITALS: BP 101/53; PULSE 73; RESP 20; TEMP 36.4; O2SAT 95
[2024-12-06 04:00] VITALS: BP 109/64; PULSE 68; RESP 20; TEMP 36.7; O2SAT 93
[2024-12-06 05:45] VITALS: BMI 19.6
[2024-12-06 08:00] VITALS: BP 124/58; PULSE 89; RESP 20; TEMP 36.3; O2SAT 92
[2024-12-06] MEDS: traZODone HCL 25 MG HALFTAB PO ×2 (08:12→21:57)
[2024-12-06] MEDS: Divalproex Sodium Sprinkles 125 MG CAP.DR.SPR 1000 MG PO ×2 (08:12→21:57)
--- NOTE | 2024-12-06 08:26 | P.PNIM_ITS ---
Subjective Subjective Date of Service: 12/06/24 Interval History: esbl uti Review of Systems Review of Systems: Yes all other systems are reviewed and are negative Physical Exam 2 Vital Signs: Vital Signs: Last Vital Signs Temp 97.3 F 12/06/24 08:00 Pulse 89 12/06/24 08:00 Resp 20 12/06/24 08:00 BP 124/58 L 12/06/24 08:00 Pulse Ox 92 12/06/24 08:00 O2 Del Method Room Air 12/06/24 08:00 O2 Flow Rate 1 11/29/24 21:00 FiO2 24 11/29/24 13:31 BMI result Body Mass Index 19.6 Objective Data Active Medications Aspirin (Aspirin 81 Mg Tab.Chew) 81 mg PO DAILY [facility] Last Admin: 12/06/24 08:12 Dose: 81 mg Documented By: DANIEL Benztropine Mesylate (Benztropine Mesylate 0.5 Mg Tablet) 0.5 mg PO BID [facility] Last Admin: 12/06/24 08:12 Dose: 0.5 mg Documented By: DANIEL Divalproex Sodium (Divalproex Sodium Sprinkles 125 Mg ) 1,000 mg PO BID [facility] Last Admin: 12/06/24 08:12 Dose: 1,000 mg Documented By: DANIEL Famotidine (Famotidine/Pf 20 Mg/2 Ml Vial) 20 mg IVPUSH BID [facility] Last Admin: 12/06/24 08:18 Dose: Not Given Documented By: DANIEL Non-Admin Reason: duplicate order Famotidine (Famotidine 20 Mg Tablet) 20 mg PO DAILY [facility] Last Admin: 12/06/24 08:12 Dose: 20 mg Documented By: DANIEL Haloperidol (Haloperidol 5 Mg Tablet) 15 mg PO TID [facility] Last Admin: 12/06/24 08:12 Dose: 15 mg Documented By: DANIEL Heparin Sodium (Porcine) (Heparin Sodium,Porcine 5,000 Unit/Ml Vial) 5,000 unit SUBCUT Q8H [facility] Last Admin: 12/06/24 08:18 Dose: Not Given Documented By: DANIEL Non-Admin Reason: Patient Refused Hydrocortisone (Hydrocortisone 10 Mg Tablet) 15 mg PO BEDTIME [facility] Last Admin: 12/05/24 22:04 Dose: Not Given Documented By: TRE Non-Admin Reason: Patient Refused Hydrocortisone (Hydrocortisone 10 Mg Tablet) 15 mg PO DAILY [facility] Last Admin: 12/06/24 08:13 Dose: 15 mg Documented By: DANIEL Levothyroxine Sodium (Levothyroxine Sodium 150 Mcg Tablet) 150 mcg PO DAILY@0600 [facility] Last Admin: 12/06/24 05:55 Dose: 150 mcg Documented By: RIGO Meropenem (Meropenem 1 Gm Vial) 1 gm IVPUSH Q12H [facility] Last Admin: 12/06/24 03:41 Dose: Not Given Documented By: TRE Non-Admin Reason: pt refusing IV access Olanzapine (Olanzapine 10 Mg Vial) 5 mg IM ONCE PRN PRN Reason: IR procedure Last Admin: 12/04/24 11:46 Dose: 5 mg Documented By: DENIS Thiamine HCl (Thiamine Hcl 100 Mg Tablet) 100 mg PO DAILY [facility] Last Admin: 12/06/24 08:11 Dose: 100 mg Documented By: DANIEL Trazodone HCl (Trazodone Hcl 25 Mg Halftab) 25 mg PO BID [facility] Last Admin: 12/06/24 08:12 Dose: 25 mg Documented By: DANIEL Labs 11/30/24 06:06 11/30/24 04:49 Assessment and Plan (1) Septic shock: Status: Acute Plan 64M PMH copd, htn, ?adrenal insufficiency, schizoaffective disorder [facility]s, severe hypoxia, septic shock from uti and aspiratoin pneumonia, was admitted to ICU, intubated, on pressors. Patient was extubated on 11/29/2024 and downgraded to medical floor on 11/30/2024. Septic shock, acute metabolic encephalopathy, acute hypoxic respiratory failure due to aspiration pneumonia and urinary tract infection Now on room air and off pressors Mental status back to baseline Continue IV meropenem and follow up cultures, blood culture so far negative, urine culture grew ESBL ecoli patient got meropenem from 11/28 to 11/30 ,midline unsuccessful yesterday . we placed another iv ( after multiple attemps):on meropenem d/w id if can not get iv ,then will reach out to guardian Incidental finding of dilated appendix - was seen by surgery felt this is benign, has 1 episode of vomiting ,no other symptoms -as per surgery if persistent vomiting then will need to repear abd imaging. 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
[2024-12-06] MEDS: oxyCODONE HCl Immed Release 5 MG TABLET 10 MG PO ×2 (09:47→13:44)
--- NOTE | 2024-12-06 10:11 | MHC.SL.SWA ---
Speech Pathologist Impression: Risk of Aspiration Due to: Dysphasia Diet Status: recommend continue on CHOPPED/ADVANCED (NDD3) with THIN liquids, pills whole or crushed in puree. Liquid Consistency and Strategies for Safe Swallow: Liquid Intake Recommendation: Thin Liquid Intake Strategies: Small Sips Solid Food Consistency: Dietary Recommendations: Chopped/Advanced (NDD3) Additional Modifications to Solid Foods: Oral Medication Intake: Crushed with Puree Please contact the pharmacy regarding appropriate crushable or liquid drug formulations that are available whenever modified delivery is recommended. Compensatory Strategies and Precautions to be Taken for Safe Swallow: Sitting Upright (90 deg) Small Bites and Sips Alternate Liquids/Solids Supervision While Eating and Drinking for Safe Swallow: Direct Supervision (1:1) Foods to Avoid: Swallowing Recommended Treatments: Compens. Strategy Educat. Recommendation for Speech: Speech Therapy through [facility] Comment: Patient presented as tolerating diet advancement to CHOPPED/NDD3 made yesterday. DIRECTOR OF STRATEGIC PROGRAMS will continue to monitor/follow patient 2-3X weekly while patient's [facility] admission continues. *Half size pieces of saltines with mustard permitted for snack at pt request, 1:1 supervision at all times with PO intake. Frequency/Duration: Daily M-F Date Range for Service Req: Timeline to reassess: Quality Checker Clinican/Clinical Fellow: No Supervisory Statement: I have reviewed and agree with the student/clinical fellow's documentation: N/A Speech Language Pathologist: Courtney Tijerina M.A., CCC-DIRECTOR OF STRATEGIC PROGRAMS
--- NOTE | 2024-12-06 11:56 | MHC.CM.PN ---
Per rounds, pt. not medically cleared, he requires IV ABX and refuses IV's, MD and RN, working on out to tx.
--- NOTE | 2024-12-06 11:59 | MHC.CLN ---
F/U PO INTAKE REMAINS 0-50% DIET RX: UPGRADED TO CHOPPED PER FORMAT PROOFREADER RECEIVING ENSURE BID TO INCREASE KCALS SUPP PROVIDES 700KCALS, 40G PROTEIN MONITOR PO INTAKE AND ENCOURAGE SUPPLEMENTS
[2024-12-06 12:00] VITALS: BP 147/79; PULSE 69; RESP 18; TEMP 36.7; O2SAT 99
--- NOTE | 2024-12-06 15:10 | W.PM.IDCN ---
History of Present Illness Data of Consult Service Date: 12/06/24 Requesting physician: Canelo Montes Primary Care Provider: Fernando Medina MD HPI Reason for consult: sepsis He presents with weakness and has hypotensive and fever with tachycardia. He has no schizoaffective disorder. He received Merem 11/28-11/30 for ESBL E coli and doesnt want to get line. He has guardian. Review of Systems Review of Systems: Yes Unobtainable due to mental condition [facility] Family History Family history: reviewed and not pertinent Social History Social History Household Members: Other Housing: Care Home Do you presently have visiting nurse or other home services: Yes Comment: 1:1 sitter Patient Tobacco Use Status: Tobacco use Unknown service: No Meds Allergies Allergy/AdvReac Type Severity Reaction Status Date / Time amprenavir Allergy Unknown Verified 11/28/24 16:55 cephaloridine Allergy Unknown Verified 11/28/24 16:55 clozapine Allergy Unknown Verified 11/28/24 16:55 Penicillins Allergy Unknown Verified 11/28/24 16:55 Phenothiazines Allergy Unknown Verified 11/28/24 16:55 Sulfa (Sulfonamide Allergy Unknown Verified 11/28/24 16:55 Antibiotics) Active Medications: Current Medications Aspirin (Aspirin 81 Mg Tab.Chew) 81 mg PO DAILY [facility] Last Admin: 12/06/24 08:12 Dose: 81 mg Benztropine Mesylate (Benztropine Mesylate 0.5 Mg Tablet) 0.5 mg PO BID [facility] Last Admin: 12/06/24 08:12 Dose: 0.5 mg Divalproex Sodium (Divalproex Sodium Sprinkles 125 Mg Lenny.) 1,000 mg PO BID [facility] Last Admin: 12/06/24 08:12 Dose: 1,000 mg Famotidine (Famotidine/Pf 20 Mg/2 Ml Vial) 20 mg IVPUSH BID [facility] Last Admin: 12/06/24 08:18 Dose: Not Given Famotidine (Famotidine 20 Mg Tablet) 20 mg PO DAILY [facility] Last Admin: 12/06/24 08:12 Dose: 20 mg Haloperidol (Haloperidol 5 Mg Tablet) 15 mg PO TID [facility] Last Admin: 12/06/24 14:50 Dose: 15 mg Heparin Sodium (Porcine) (Heparin Sodium,Porcine 5,000 Unit/Ml Vial) 5,000 unit SUBCUT Q8H [facility] Last Admin: 12/06/24 08:18 Dose: Not Given Hydrocortisone (Hydrocortisone 10 Mg Tablet) 15 mg PO BEDTIME [facility] Last Admin: 12/05/24 22:04 Dose: Not Given Hydrocortisone (Hydrocortisone 10 Mg Tablet) 15 mg PO DAILY [facility] Last Admin: 12/06/24 08:13 Dose: 15 mg Levothyroxine Sodium (Levothyroxine Sodium 150 Mcg Tablet) 150 mcg PO DAILY@0600 [facility] Last Admin: 12/06/24 05:55 Dose: 150 mcg Meropenem (Meropenem 1 Gm Vial) 1 gm IVPUSH Q12H [facility] Last Admin: 12/06/24 03:41 Dose: Not Given Olanzapine (Olanzapine 10 Mg Vial) 5 mg IM ONCE PRN PRN Reason: IR procedure Last Admin: 12/04/24 11:46 Dose: 5 mg Thiamine HCl (Thiamine Hcl 100 Mg Tablet) 100 mg PO DAILY [facility] Last Admin: 12/06/24 08:11 Dose: 100 mg Trazodone HCl (Trazodone Hcl 25 Mg Halftab) 25 mg PO BID [facility] Last Admin: 12/06/24 08:12 Dose: 25 mg Home Medications ?Medication ?Instructions ?Recorded ?Confirmed ?Last Taken ?Type acetaminophen 325 mg rectal 325 mg [place] Q4H PRN Constipation 11/28/24 11/28/24 Unknown History suppository acetaminophen 325 mg tablet 975 mg PO Q6H PRN Pain 11/28/24 11/28/24 Unknown History albuterol sulfate 90 mcg/actuation 2 puff inhalation Q6H PRN 11/28/24 11/28/24 Unknown History aerosol inhaler (Ventolin HFA) Shortness Of Breath Or Wheezing aspirin 81 mg tablet,delayed 81 mg PO DAILY 11/28/24 11/28/24 Unknown History release azithromycin 250 mg tablet 250 mg PO DAILY 11/28/24 11/28/24 Unknown History azithromycin 250 mg tablet 500 mg PO DAILY 11/28/24 11/28/24 Unknown History benztropine 0.5 mg tablet 0.5 mg PO BID 11/28/24 11/28/24 Unknown History bisacodyl 10 mg rectal suppository 10 mg [place] DAILY PRN Constipation 11/28/24 11/28/24 Unknown History ceftriaxone 1 gram solution for 1 g IM DAILY 11/28/24 11/28/24 Unknown History injection divalproex 500 mg tablet,delayed 1,000 mg PO BID 11/28/24 11/28/24 Unknown History release doxycycline hyclate 100 mg capsule 100 mg PO BID 11/28/24 11/28/24 Unknown History famotidine 20 mg tablet 20 mg PO DAILY 11/28/24 11/28/24 Unknown History haloperidol 5 mg tablet 15 mg PO TID 11/28/24 11/28/24 Unknown History hydrocortisone 5 mg tablet 15 mg PO BEDTIME 11/28/24 11/28/24 Unknown History hydrocortisone 5 mg tablet 15 mg PO DAILY 11/28/24 11/28/24 Unknown History ipratropium 0.5 mg-albuterol 3 mg 3 ml inhalation Q6H PRN Shortness 11/28/24 11/28/24 Unknown History (2.5 mg base)/3 mL nebulization Of Breath Or Wheezing soln levothyroxine 150 mcg tablet 150 mcg PO DAILY@0600 11/28/24 11/28/24 Unknown History liothyronine 5 mcg tablet 5 mcg PO DAILY 11/28/24 11/28/24 Unknown History lorazepam 0.5 mg tablet 0.5 mg PO TID 11/28/24 11/28/24 Unknown History magnesium hydroxide 400 mg/5 mL 30 ml PO DAILY PRN Constipation 11/28/24 11/28/24 Unknown History oral suspension (Milk of Magnesia) naloxone 0.4 mg/mL injection 0.4 mg subcut Q2M PRN Opiate 11/28/24 11/28/24 Unknown History solution Reversal naloxone 4 mg/actuation nasal spray 4 mg intranasal Q3M PRN Opiate 11/28/24 11/28/24 Unknown History Reversal simvastatin 5 mg tablet 5 mg PO BEDTIME 11/28/24 11/28/24 Unknown History sodium phosphates 19 gram-7 118 ml [place] DAILY PRN Constipation 11/28/24 11/28/24 Unknown History gram/118 mL enema (Fleet Enema) thiamine HCl (vitamin B1) 100 mg 100 mg PO DAILY 11/28/24 11/28/24 Unknown History tablet trazodone 50 mg tablet 25 mg PO BID 11/28/24 11/28/24 Unknown History Physical Exam Vital Signs: Vital Signs: Last Vital Signs Temp 98.0 F 12/06/24 12:00 Pulse 69 12/06/24 12:00 Resp 18 12/06/24 12:00 BP 147/79 H 12/06/24 12:00 Pulse Ox 99 12/06/24 12:00 O2 Del Method Room Air 12/06/24 12:00 O2 Flow Rate 1 11/29/24 21:00 FiO2 24 11/29/24 13:31 BMI result Body Mass Index 19.6 Const: General: cooperative HEENT: Head: Yes normal to inspection Face and sinus: Yes normal facial exam Mouth: Normal oral and palatal mucosa present Teeth and gingiva: dentition normal Eyes: General: appearance normal, both eyes and all related structures Pupils: Equal, round and reactive pupils present Resp: Effort & Inspection: normal respiratory effort Cardio: Rate: regular rate Rhythm: regular rhythm GI: Palpation (GI): Soft to palpation and nontender : General: Yes no CVA tenderness Back/Spine/Pelvis: Back: no CVA tenderness Skin: General skin exam: no rashes or lesions noted Neuro: General: moves all extremities Cranial nerves: Yes Equal, round and reactive pupils present Extrem: General: Yes normal to inspection Psych: Appearance: grossly normal Results Labs 11/30/24 06:06 11/30/24 04:49 Microbiology Microbiology Results: Microbiology 11/28/24 17:07 Blood - Venous Blood Culture - Final No growth after 5 days. 11/28/24 17:07 Blood - Venous Blood Culture - Final No growth after 5 days. 11/28/24 Unknown Urine clean catch - Clean Catch Midstream Urine Culture - Final Escherichia coli Assessment and Plan (1) Schizophrenia: Status: Acute (2) Vomiting: Status: Acute Plan He declines getting line for further IV antibiotics so he is not getting more. He is combative and has guardian. Watch for any further signs of sepsis.
[2024-12-06 17:13] VITALS: BP 157/79; PULSE 93; RESP 18; TEMP 36.2; O2SAT 99
--- NOTE | 2024-12-06 18:23 | PC.NURSE ---
pt alert to self and place, disorganized speech. verbally inappropriate with staff. difficult to redirect. chronic mahoney draining clear yellow urine. pt brought down to IR for midline placement this afternoon. 1:[address] camera in place. bed in lowest locked position. safety measures in place.
--- NOTE | 2024-12-06 18:44 | PC.NURSE ---
Pt transported to OR 8 for line placement. This RN was present at bedside during procedure. Time out was performed w/ OR staff and this RN. pt was calm and cooperative. No IM meds required. Floor RN was informed of line palcement details.
[2024-12-06 20:00] VITALS: BP 126/61; PULSE 77; RESP 18; TEMP 36.6; O2SAT 96
[2024-12-07] VITALS: BP 109/49; PULSE 74; RESP 18; TEMP 36.8; O2SAT 93
--- NOTE | 2024-12-07 | ECG_ITS ---
Test Reason : on anti-psych meds, check QT interval Blood Pressure : */* mmHG Vent. Rate : 77 BPM Atrial Rate : 77 BPM P-R Int : 146 ms QRS Dur : 78 ms QT Int : 402 ms P-R-T Axes : 74 65 70 degrees QTcB Int : 454 ms Normal sinus rhythm Normal ECG No previous ECGs available Referred By: Warren Bledsoe Electronically Signed By: ARIC FLOREZ
[2024-12-07 03:59] VITALS: BP 107/51; PULSE 62; RESP 18; TEMP 36.9; O2SAT 94
[2024-12-07 06:00] VITALS: BMI 19.5
[2024-12-07 07:20] VITALS: BP 148/68; PULSE 64; RESP 20; TEMP 36.3; O2SAT 97
[2024-12-07] MEDS: Divalproex Sodium Sprinkles 125 MG CAP.DR.SPR 1000 MG PO ×2 (07:46→20:13)
[2024-12-07] MEDS: traZODone HCL 25 MG HALFTAB PO ×2 (07:48→20:12)
--- NOTE | 2024-12-07 07:53 | P.PNIM_ITS ---
Subjective Subjective Date of Service: 12/07/24 Interval History: esbl uti Review of Systems intermittent agitation no other c/o Review of Systems: Yes all other systems are reviewed and are negative Physical Exam 2 Exam: Exam: General: AO X 2, no acute distress Resp: CTA bilateral, no accessory muscles used CVS: S1,S2,RRR GI: soft, non tender, non distended Neuro: motor grossly intact, alert Psych: impairedinsight Vital Signs: Vital Signs: Last Vital Signs Temp 97.4 F 12/07/24 07:20 Pulse 64 12/07/24 07:20 Resp 20 12/07/24 07:20 BP 148/68 H 12/07/24 07:20 Pulse Ox 97 12/07/24 07:20 O2 Del Method Room Air 12/07/24 07:20 O2 Flow Rate 1 11/29/24 21:00 FiO2 24 11/29/24 13:31 BMI result Body Mass Index 19.5 Objective Data Active Medications Aspirin (Aspirin 81 Mg Tab.Chew) 81 mg PO DAILY [facility] Last Admin: 12/06/24 08:12 Dose: 81 mg Documented By: DANIEL Benztropine Mesylate (Benztropine Mesylate 0.5 Mg Tablet) 0.5 mg PO BID [facility] Last Admin: 12/06/24 21:57 Dose: 0.5 mg Documented By: TRE Divalproex Sodium (Divalproex Sodium Sprinkles 125 Mg ) 1,000 mg PO BID [facility] Last Admin: 12/06/24 21:57 Dose: 1,000 mg Documented By: TRE Famotidine (Famotidine/Pf 20 Mg/2 Ml Vial) 20 mg IVPUSH BID [facility] Last Admin: 12/06/24 21:58 Dose: 20 mg Documented By: TRE Famotidine (Famotidine 20 Mg Tablet) 20 mg PO DAILY [facility] Last Admin: 12/06/24 08:12 Dose: 20 mg Documented By: DANIEL Haloperidol (Haloperidol 5 Mg Tablet) 15 mg PO TID [facility] Last Admin: 12/06/24 21:56 Dose: 15 mg Documented By: TRE Heparin Sodium (Porcine) (Heparin Sodium,Porcine 5,000 Unit/Ml Vial) 5,000 unit SUBCUT Q8H [facility] Last Admin: 12/07/24 01:55 Dose: 5,000 unit Documented By: TRE Hydrocortisone (Hydrocortisone 10 Mg Tablet) 15 mg PO BEDTIME [facility] Last Admin: 12/06/24 21:57 Dose: 15 mg Documented By: TRE Hydrocortisone (Hydrocortisone 10 Mg Tablet) 15 mg PO DAILY [facility] Last Admin: 12/06/24 08:13 Dose: 15 mg Documented By: DANIEL Levothyroxine Sodium (Levothyroxine Sodium 150 Mcg Tablet) 150 mcg PO DAILY@0600 [facility] Last Admin: 12/07/24 06:09 Dose: 150 mcg Documented By: TRE Meropenem (Meropenem 1 Gm Vial) 1 gm IVPUSH Q12H [facility] Last Admin: 12/07/24 01:55 Dose: 1 gm Documented By: TRE Olanzapine (Olanzapine 10 Mg Vial) 5 mg IM ONCE PRN PRN Reason: IR procedure Last Admin: 12/04/24 11:46 Dose: 5 mg Documented By: DENIS Thiamine HCl (Thiamine Hcl 100 Mg Tablet) 100 mg PO DAILY [facility] Last Admin: 12/06/24 08:11 Dose: 100 mg Documented By: DANIEL Trazodone HCl (Trazodone Hcl 25 Mg Halftab) 25 mg PO BID [facility] Last Admin: 12/06/24 21:57 Dose: 25 mg Documented By: TRE Labs 11/30/24 06:06 11/30/24 04:49 Assessment and Plan (1) Septic shock: Status: Acute Plan 64M PMH copd, htn, ?adrenal insufficiency, schizoaffective disorder [facility], severe hypoxia, septic shock from uti and aspiratoin pneumonia, was admitted to ICU, intubated, on pressors. Patient was extubated on 11/29/2024 and downgraded to medical floor on 11/30/2024. Septic shock, acute metabolic encephalopathy, acute hypoxic respiratory failure due to aspiration pneumonia and urinary tract infection Now on room air and off pressors Mental status back to baseline Continue IV meropenem and follow up cultures, blood culture so far negative, urine culture grew ESBL ecoli patient got meropenem from 11/28 to 11/30 ,midline placed on 12/07/24:on meropenem. d/w id if can not get iv ,then will reach out to guardian Incidental finding of dilated appendix - was seen by surgery felt this is benign, has 1 episode of vomiting ,no other symptoms -as per surgery if persistent vomiting then will need to repear abd imaging. 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
[2024-12-07 11:17] VITALS: BP 159/70; PULSE 86; RESP 20; TEMP 36.6; O2SAT 95
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
[2024-12-07 16:00] VITALS: BP 170/78; PULSE 86; RESP 18; TEMP 36.9; O2SAT 97
[2024-12-07 20:00] VITALS: BP 134/81; PULSE 97; RESP 20; TEMP 36.8; O2SAT 95
[2024-12-07] MEDS: oxyCODONE HCl Immed Release 5 MG TABLET PO (20:11)
[2024-12-08] VITALS (14 sets, daily range): BP systolic 89–157; BP diastolic 41–78; PULSE 69–102; RESP 11–21; TEMP 36.1–37.3; O2SAT 93–100; BMI 19.5
[2024-12-08 08:14] LABS: Glucose, Whole Blood 108 mg/dL (60-115)
[2024-12-08 08:19] LABS: VBG HCO3 16 mmol/L (22-26); VBG O2 % Saturation 87.0 %
[2024-12-08 08:22] LABS: Hematocrit 30.8 % (42.0-52.0); Hemoglobin 9.6 g/dl (14.0-18.0); Mean Corpuscular HGB Conc 31.2 g/dl (31.0-36.0); Mean Corpuscular Hemoglobin 28.5 pg (27.0-33.0); Mean Corpuscular Volume 91.4 fL (80.0-98.0); NRBC Abs Auto 0.020 X10*3/uL (0.0-0.012); NRBC Pct Auto 0.1 /100WBC (0.0-0.2); Platelet Count 349 X10*3/uL (160-400); Red Blood Count 3.37 X10*6/uL (4.60-5.80); White Blood Count 14.1 X10*3/uL (4.8-10.8)
[2024-12-08] MEDS: Lactated Ringers 1,000 ML 150 ML IVCONT (08:28)
[2024-12-08 08:41] LABS: Ammonia 76 umol/L (13-55)
[2024-12-08 08:51] LABS: Venous Blood Gas Refer to POC result
[2024-12-08 09:07] LABS: Anion Gap 22 (12-20); Blood Urea Nitrogen 30 mg/dL (9-16); Calcium 8.7 mg/dL (8.4-10.2); Carbon Dioxide 17 mmol/L (22-29); Chloride 102 mmol/L (96-108); Creatinine Clr Calc Pharmacy 44.6; Estimated Glomerular Filt Rate 48; Potassium 4.1 mmol/L (3.3-5.1); Sodium 137 mmol/L (135-145)
[2024-12-08] MEDS: diazePAM 10 MG/2 ML CARTRIDGE 2.5 MG IVPUSH (09:45)
[2024-12-08 10:00] LABS: Thyroid Stimulating Hormone 63.95 uIU/mL (0.32-4.0)
[2024-12-08 10:15] LABS: Reflex Lactate? Lactic Acid Added
[2024-12-08] MEDS: Valproic Acid (as Sodium Salt) 1,000 MG in Dextrose 5 % 50 ML 60 MG IV (10:23)
[2024-12-08] MEDS: Hydrocortisone Sod Succ/PF 100 MG VIAL IVPUSH (10:23)
[2024-12-08 11:00] LABS: ~Lactic Acid-LAB USE ONLY 1.1 mmol/L (0.5-2.0)
--- NOTE | 2024-12-08 11:31 | P.PNIM_ITS ---
Subjective Subjective Date of Service: 12/08/24 Interval History: rapid repsonse today-possible seizure episode vs aspiratrion drooling no visible tongue bite Review of Systems intially question postictal,very agiatated afterwards, keep hema iv's and interfering with care sats and vitals normal,fs fine denies any chest pain or sob or abd pain Review of Systems: Yes all other systems are reviewed and are negative Physical Exam 2 Exam: Exam: General: AO X 2, very agitated ,uncoopertive Resp: air entry fair ,diminshed at bases. CVS: S1,S2,RRR GI: soft, non tender, non distended Neuro: motor grossly intact, alert Psych: impairedinsight Vital Signs: Vital Signs: Last Vital Signs Temp 97.9 F 12/08/24 11:21 Pulse 69 12/08/24 11:21 Resp 20 12/08/24 11:21 BP 157/78 H 12/08/24 11:21 Pulse Ox 100 12/08/24 11:21 O2 Del Method Room Air 12/08/24 11:21 O2 Flow Rate 1 11/29/24 21:00 FiO2 24 11/29/24 13:31 BMI result Body Mass Index 19.5 Objective Data Active Medications Aspirin (Aspirin 81 Mg Tab.Chew) 81 mg PO DAILY [facility] Last Admin: 12/08/24 10:42 Dose: Not Given Documented By: DANIEL Non-Admin Reason: NPO Benztropine Mesylate (Benztropine Mesylate 0.5 Mg Tablet) 0.5 mg PO BID [facility] Last Admin: 12/08/24 10:42 Dose: Not Given Documented By: DANIEL Non-Admin Reason: NPO Diazepam (Diazepam 10 Mg/2 Ml Cartridge) 2.5 mg IVPUSH TID [facility] Last Admin: 12/08/24 09:45 Dose: 2.5 mg Documented By: DANIEL Divalproex Sodium (Divalproex Sodium Sprinkles 125 Mg ) 1,000 mg PO BID [facility] Last Admin: 12/08/24 10:42 Dose: Not Given Documented By: DANIEL Non-Admin Reason: NPO Famotidine (Famotidine/Pf 20 Mg/2 Ml Vial) 20 mg IVPUSH BID [facility] Last Admin: 12/08/24 10:24 Dose: 20 mg Documented By: DANIEL Famotidine (Famotidine 20 Mg Tablet) 20 mg PO DAILY [facility] Last Admin: 12/08/24 10:42 Dose: Not Given Documented By: DANIEL Non-Admin Reason: NPO Haloperidol (Haloperidol 5 Mg Tablet) 15 mg PO TID [facility] Last Admin: 12/08/24 10:42 Dose: Not Given Documented By: DANIEL Non-Admin Reason: NPO Heparin Sodium (Porcine) (Heparin Sodium,Porcine 5,000 Unit/Ml Vial) 5,000 unit SUBCUT Q8H [facility] Last Admin: 12/08/24 10:42 Dose: Not Given Documented By: DANIEL Non-Admin Reason: Patient Refused Hydrocortisone (Hydrocortisone 10 Mg Tablet) 15 mg PO BEDTIME [facility] Last Admin: 12/07/24 20:13 Dose: 15 mg Documented By: TRE Hydrocortisone (Hydrocortisone 10 Mg Tablet) 15 mg PO DAILY [facility] Last Admin: 12/08/24 10:42 Dose: Not Given Documented By: DANIEL Non-Admin Reason: NPO Lactated Ringer's (Lr) 1,000 mls @ 150 mls/hr IVCONT .Q6H40M [facility] Last Admin: 12/08/24 08:28 Dose: 150 mls/hr Documented By: DANIEL Dexmedetomidine HCl (Precedex) 400 mcg in 100 mls @ 0 mls/hr IVCONT .Q0M [facility]; Protocol Levothyroxine Sodium (Levothyroxine Sodium 150 Mcg Tablet) 150 mcg PO DAILY@0600 [facility] Last Admin: 12/08/24 06:49 Dose: 150 mcg Documented By: TRE Meropenem (Meropenem 1 Gm Vial) 1 gm IVPUSH Q12H [facility] Last Admin: 12/08/24 01:50 Dose: 1 gm Documented By: TRE Olanzapine (Olanzapine 10 Mg Vial) 5 mg IM ONCE PRN PRN Reason: IR procedure Last Admin: 12/04/24 11:46 Dose: 5 mg Documented By: DENIS Olanzapine (Olanzapine 5 Mg Tablet) 5 mg PO ONCE PRN PRN Reason: agitation Thiamine HCl (Thiamine Hcl 100 Mg Tablet) 100 mg PO DAILY [facility] Last Admin: 12/08/24 10:42 Dose: Not Given Documented By: DANIEL Non-Admin Reason: NPO Trazodone HCl (Trazodone Hcl 25 Mg Halftab) 25 mg PO BID [facility] Last Admin: 12/08/24 10:42 Dose: Not Given Documented By: DANIEL Non-Admin Reason: NPO Labs 12/08/24 08:12 12/08/24 08:12 Labs: Laboratory Results - last 24 hr 12/08/24 12/08/24 12/08/24 08:10 08:12 08:15 MCV 91.4 MCH 28.5 MCHC 31.2 RDW 16.3 H Plt Count 349 D MPV 8.9 L Absolute Nucleated RBC 0.020 H Nucleated RBC % (auto) 0.1 Hold Blue Top SEE NOTE VBG pH 7.26 L VBG pCO2 36 VBG pO2 72 VBG HCO3 16 L VBG O2 Saturation 87.0 VBG Base Excess -9.5 Anion Gap 22 H Estim Creat Clear Calc 44.6 Estimated GFR 48 POC Glucose 108 Random Glucose 107 Lactic Acid 11.3 H* Lactic Acid F/U @ 2Hr Calcium 8.7 Ammonia 76 H TSH 63.95 H Hold Red Top See Note Hold Yellow Top See Note Valproic Acid 15.2 L 12/08/24 10:32 MCV MCH MCHC RDW Plt Count MPV Absolute Nucleated RBC Nucleated RBC % (auto) Hold Blue Top VBG pH VBG pCO2 VBG pO2 VBG HCO3 VBG O2 Saturation VBG Base Excess Anion Gap Estim Creat Clear Calc Estimated GFR POC Glucose Random Glucose Lactic Acid Lactic Acid F/U @ 2Hr 1.1 Calcium Ammonia TSH Hold Red Top Hold Yellow Top Valproic Acid Assessment and Plan (1) UTI (urinary tract infection) due to urinary indwelling Heaton catheter: Status: Acute (2) Seizure: Status: Acute Plan 64M PMH copd, htn, ?adrenal insufficiency, schizoaffective disorder [facility] with ams, severe hypoxia, septic shock from uti and aspiratoin pneumonia, was admitted to ICU, intubated, on pressors. Patient was extubated on 11/29/2024 and downgraded to medical floor on 11/30/2024. seizure vs aspirational episode:unclear etiology acute elevated lactic acid resolved prompthy with hydration(likely sec to seizure ) ph low also likely sec to elevated lactic acid. plan: npo-try bedside swallow before intiating po meds. lft's and ammonia levels ,tsh levels added added cxr ,ct head. ivf , switched to iv valproic acid ,midazolam ( he baseline ? psych meds he is on valproate and ativan in addition to Haldol). spoke to patient healthcare interpreter mr beltran in [facility] -seems like he is agiatated at baseline /grabbin people /periods of aggression( at baseline) acute metabolic encephalopathy, acute hypoxic respiratory failure due to aspiration pneumonia and urinary tract infection septic shock resolved (in icu), not hypoxic unclear basleine -gets agitated (mood seems labile all the time). leucocytosis Continue IV meropenem and follow up cultures, blood culture so far negative, urine culture grew ESBL ecoli patient got meropenem from 11/28 to 11/30 ,midline placed on 12/07/24:on meropenem-patient keep removing iv line (multiple attemps including midline). Incidental finding of dilated appendix - was seen by surgery felt this is benign, has 1 episode of vomiting ,no other symptoms -as per surgery if persistent vomiting then will need to repear abd imaging. 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 consider switching iv hydrocortisone until can not take po. Acute kidney injury-though to Due to sec to intial shock(which is resolved) Improving refusing labs Schizoaffective disorder hold lorazepam, Haldol, Depakote, Cogentin-can not take po switched to iv valproic acid ,midazolam Hypothyroid Levothyroxine DVT prophylaxis with heparin subQ Full code reason for continued hospitalization: iv abx for esbl Patient will be going to ICU for further management-since possible new seizure onset, need of IV antibiotics, may need further workup/management for schizoaffective disorder /behaviour agiatation above d/w icu . Quality Stroke Does the patient have a stroke diagnosis?: No VTE Prior VTE?: No VTE Risk Level:: Medical - low VTE Device Contraindication: N/A - Device Ordered VTE Drug Contraindication: N/A - Med Ordered
--- NOTE | 2024-12-08 12:10 | PM.EVENT ---
Event Note Date of Service: 12/08/24 Event Note: Patient is a 64 Y M w/ presumed adrenal insufficiency on glucocorticosteroids, COPD, and schizoaffective disorder has guardian, presenting to emergency department from facility on 11/28 w/ encephalopathy in setting of recent urinary tract infection, found to be in septic shock and acute respiratory failure, prompting intubation and ICU admission; patient was extubated 11/29 and downgraded to floor 11/30; on 12/08, patient was rapid response for seizure, and subsequent agitation and difficulty providing care N: encephalopathy, specifically agitation, possibly post-ictal, seizure precautions, follow-up CT H, dexmedetomidine gtt and anti-psychotic regimen CV: no acute issues, to closely monitor hemodynamics R: no acute issues; COPD GI: NPO while encephalopathic : no acute issues H: no acute issues; chemical DVT prophylaxis ID: [id number] UTI on meropenem; of note, meropenem on rare occasions decrease seizure threshold, unclear how many days of meropenem patient received as patient reported removed multiple IVs, consider d/c; of note, lactic acidosis likely d/t seizure, not sepsis E: to monitor hypo-/hyper-glycemia P: schizoaffective disorder has guardian, anti-psychotic regimen Time Spent With Patient Time: Total time managing care of this patient today ____ minutes.
--- NOTE | 2024-12-08 14:00 | PC.NURSE ---
pt found to resting comfortably at change of shift, RR even, unlabored breathing. camera in place, no 1:1 sitter d/t staffing. shortly after pt awoken and became verbally/physically aggressive yelling / kicking staff. This RN at bedside, pt found to have removed IV, unable to locate catheter in room. pt attempting to get out of bed, swinging legs over side rail, stating , i cant be here any longer i need to get up . This RN, after several attempts, able to redirect pt back to bed safely. lounge car attendant and billing supervisor aware. 0810 this RN outside of pts room, attempting to redirect pt pt laying on his R side in bed. pt began to convulse and foam at the mouth, unresponsive. CASH OFFICE WORKER called.
[2024-12-08] MEDS: diazePAM 10 MG/2 ML CARTRIDGE 5 MG IM (14:05)
[2024-12-08 14:15] LABS: Alanine Aminotransferase 15 U/L (0-40); Albumin Level 4.0 g/dL (3.5-5.0); Alkaline Phosphatase 71 U/L (39-117); Aspartate Amino Transferase 29 U/L (5-37); Free T4 (Free Thyroxine) 0.97 ng/dL (0.71-1.85); Total Protein 6.9 g/dL (6.5-8.0)
--- NOTE | 2024-12-08 15:31 | PM.NEUROCN ---
History of Present Illness Data of Consult Service Date: 12/08/24 Primary Care Provider: Fernando Medina MD HPI Reason for consult: Altered mental status, question seizures This is a 64 year old man with a history of COPD, hypertension, question adrenal insufficiency and schizoaffective disorder who [facility] with altered mental status, severe hypoxia, septic shock from UTI and aspiration pneumonia, was admitted to ICU, intubated, on pressors. Patient was extubated on 11/29/2024 and downgraded to medical floor on 11/30/2024. He continues to be agitated and confused from time to time and I was asked to evaluate him regarding the possibility of seizure disorder. He is in bed restrained with a sitter. He is alert talking constantly saying that he has ordered a pizza with pepperoni and is waiting for it and that he has a Dr. who is went to [place] and heels people's minds by doing 3 and 4 squares. He appears obviously delusional. He offers no complaints. [facility] Family History Family history: reviewed and not pertinent Social History Social History Household Members: Other Housing: Long-Term Do you presently have visiting nurse or other home services: Yes Comment: 1:1 sitter, 2 point restraints Patient Tobacco Use Status: Tobacco use Unknown service: No Meds Allergies Allergy/AdvReac Type Severity Reaction Status Date / Time amprenavir Allergy Unknown Verified 11/28/24 16:55 cephaloridine Allergy Unknown Verified 11/28/24 16:55 clozapine Allergy Unknown Verified 11/28/24 16:55 Penicillins Allergy Unknown Verified 11/28/24 16:55 Phenothiazines Allergy Unknown Verified 11/28/24 16:55 Sulfa (Sulfonamide Allergy Unknown Verified 11/28/24 16:55 Antibiotics) Active Medications: Current Medications Diazepam (Diazepam 10 Mg/2 Ml Cartridge) 5 mg IVPUSH TID [facility] Haloperidol (Haloperidol 5 Mg Tablet) 15 mg PO TID [facility] Last Admin: 12/08/24 14:46 Dose: 15 mg Heparin Sodium (Porcine) (Heparin Sodium,Porcine 5,000 Unit/Ml Vial) 5,000 unit SUBCUT Q8H [facility] Last Admin: 12/08/24 15:03 Dose: Not Given Dexmedetomidine HCl (Precedex) 400 mcg in 100 mls @ 0 mls/hr IVCONT .Q0M [facility]; Protocol Levetiracetam (Keppra) 1,000 mg in 100 mls @ 400 mls/hr IV Q12H [facility] Valproic Acid 1,000 mg/ Sodium (Chloride) 110 mls @ 100 mls/hr IV BID [facility] Levothyroxine Sodium (Levothyroxine Sodium 100 Mcg/5 Ml Vial) 75 mcg IVPUSH DAILY@0600 [facility] Meropenem (Meropenem 1 Gm Vial) 1 gm IVPUSH Q12H [facility] Last Admin: 12/08/24 01:50 Dose: 1 gm Home Medications ?Medication ?Instructions ?Recorded ?Confirmed ?Last Taken ?Type acetaminophen 325 mg rectal 325 mg MI Q4H PRN Constipation 11/28/24 11/28/24 Unknown History suppository acetaminophen 325 mg tablet 975 mg PO Q6H PRN Pain 11/28/24 11/28/24 Unknown History albuterol sulfate 90 mcg/actuation 2 puff inhalation Q6H PRN 11/28/24 11/28/24 Unknown History aerosol inhaler (Ventolin HFA) Shortness Of Breath Or Wheezing aspirin 81 mg tablet,delayed 81 mg PO DAILY 11/28/24 11/28/24 Unknown History release azithromycin 250 mg tablet 250 mg PO DAILY 11/28/24 11/28/24 Unknown History azithromycin 250 mg tablet 500 mg PO DAILY 11/28/24 11/28/24 Unknown History benztropine 0.5 mg tablet 0.5 mg PO BID 11/28/24 11/28/24 Unknown History bisacodyl 10 mg rectal suppository 10 mg MI DAILY PRN Constipation 11/28/24 11/28/24 Unknown History ceftriaxone 1 gram solution for 1 g IM DAILY 11/28/24 11/28/24 Unknown History injection divalproex 500 mg tablet,delayed 1,000 mg PO BID 11/28/24 11/28/24 Unknown History release doxycycline hyclate 100 mg capsule 100 mg PO BID 11/28/24 11/28/24 Unknown History famotidine 20 mg tablet 20 mg PO DAILY 11/28/24 11/28/24 Unknown History haloperidol 5 mg tablet 15 mg PO TID 11/28/24 11/28/24 Unknown History hydrocortisone 5 mg tablet 15 mg PO BEDTIME 11/28/24 11/28/24 Unknown History hydrocortisone 5 mg tablet 15 mg PO DAILY 11/28/24 11/28/24 Unknown History ipratropium 0.5 mg-albuterol 3 mg 3 ml inhalation Q6H PRN Shortness 11/28/24 11/28/24 Unknown History (2.5 mg base)/3 mL nebulization Of Breath Or Wheezing soln levothyroxine 150 mcg tablet 150 mcg PO DAILY@0600 11/28/24 11/28/24 Unknown History liothyronine 5 mcg tablet 5 mcg PO DAILY 11/28/24 11/28/24 Unknown History lorazepam 0.5 mg tablet 0.5 mg PO TID 11/28/24 11/28/24 Unknown History magnesium hydroxide 400 mg/5 mL 30 ml PO DAILY PRN Constipation 11/28/24 11/28/24 Unknown History oral suspension (Milk of Magnesia) naloxone 0.4 mg/mL injection 0.4 mg subcut Q2M PRN Opiate 11/28/24 11/28/24 Unknown History solution Reversal naloxone 4 mg/actuation nasal spray 4 mg intranasal Q3M PRN Opiate 11/28/24 11/28/24 Unknown History Reversal simvastatin 5 mg tablet 5 mg PO BEDTIME 11/28/24 11/28/24 Unknown History sodium phosphates 19 gram-7 118 ml MI DAILY PRN Constipation 11/28/24 11/28/24 Unknown History gram/118 mL enema (Fleet Enema) thiamine HCl (vitamin B1) 100 mg 100 mg PO DAILY 11/28/24 11/28/24 Unknown History tablet trazodone 50 mg tablet 25 mg PO BID 11/28/24 11/28/24 Unknown History Physical Exam Vital Signs: Vital Signs: Last Vital Signs Temp 97.5 F 12/08/24 15:22 Pulse 81 12/08/24 15:22 Resp 13 12/08/24 15:22 BP 146/54 H 12/08/24 15:22 Pulse Ox 97 12/08/24 13:00 O2 Del Method Room Air 12/08/24 13:00 O2 Flow Rate 1 11/29/24 21:00 FiO2 24 11/29/24 13:31 BMI result Body Mass Index 19.5 Neuro: Other: He is alert and oriented to person and place but did not know the month or the year. He is obviously delusional as stated in the history. Speech and language functions are normal. Cranial nerves 2-12 are normal. Muscle tone and strength are normal in all 4 extremities. Deep tendon reflexes symmetrical plantar responses are flexor. Gait was not tested. Results Labs 12/08/24 08:12 12/08/24 08:12 Labs: Short CBC 12/08/24 Range/Units 08:12 WBC 14.1 H (4.8-10.8) X10*3/uL Hgb 9.6 L (14.0-18.0) g/dl Hct 30.8 L (42.0-52.0) % Plt Count 349 D (160-400) X10*3/uL BMP 12/08/24 08:12 Sodium 137 Potassium 4.1 Chloride 102 Carbon Dioxide 17 L BUN 30 H Creatinine 1.48 H Calcium 8.7 Liver Function 12/08/24 Range/Units 08:12 Total Bilirubin 0.2 (0.0-1.0) mg/dL Direct Bilirubin < 0.2 (0.0-0.5) mg/dL AST 29 (5-37) U/L ALT 15 (0-40) U/L Alkaline Phosphatase 71 (39-117) U/L Albumin 4.0 (3.5-5.0) g/dL Microbiology Microbiology Results: Microbiology 11/28/24 17:07 Blood - Venous Blood Culture - Final No growth after 5 days. 11/28/24 17:07 Blood - Venous Blood Culture - Final No growth after 5 days. 11/28/24 Unknown Urine clean catch - Clean Catch Midstream Urine Culture - Final Escherichia coli Assessment and Plan (1) Schizophrenia: Status: Acute He is obviously delusional at this time. I would continue his psych medications and get a psych consultation. (2) Acute encephalopathy: Status: Acute His acute encephalopathy has resolved. I do not find much to suggest seizures. Recommendation: Routine EEG Procedures Date of Service Date of Service: 12/08/24
[2024-12-09] VITALS (21 sets, daily range): BP systolic 88–115; BP diastolic 48–62; PULSE 71–103; RESP 12–32; TEMP 36.2–36.4; O2SAT 95–97; BMI 19.7
[2024-12-09] MEDS: diazePAM 10 MG/2 ML CARTRIDGE 5 MG IM (00:30)
--- NOTE | 2024-12-09 01:17 | W.PM.CCHP ---
Procedures Date of Service Date of Service: 12/09/24 Central Line Placement Right IJ: Central Line Comments: Patient with poor peripheral vascular access, unable to draw labs, requiring emergent line. Right internal jugular triple lumen central venous catheter placed in usual sterile conditions under ultrasound guidance for appropriate vascular access without immediate complications. Central line position verified with Chest XRAY. Consent for Procedure: Emergent-no informed consent obtained Time out performed: Yes Sterile Technique Used: Yes Patient placed on monitor/pulse ox: Yes MD prep: mask, gown and gloves Central line prep: Chlorhexidine scrub and sterile drapes applied Ultrasound used for placement: Yes Central line lumen inserted: triple Post procedure: sutured in place, good blood return, all ports aspirated, flushed, capped and sterile dressing applied Post procedure x-ray: tip of catheter in good position and no pneumothorax seen Patient tolerated procedure: well and no complications Complications: none
--- NOTE | 2024-12-09 01:50 | PC.NURSE ---
Patient alert/oriented to person and place, able to state what he doesnt want done and understands what an IV is and becomes aggressive/agitated/will punch if you attempt to do something he doesnt want done without explanation. At start of shift he was requesting food, gave the patient a peanut butter/jelly sandwich with his ordered p.o meds. Took meds without issue with gingerale and no issues swallowing. RN took off restraints to let patient eat and kept restraints off because patient is calm. 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 He has ripped out many IV's in the past and currently doesnt have one. He has IV antibiotics ordered which he is not getting. IM Diazepam administered tonight in attempt to relax patient to obtain IV access which was not successful. Patient states he refuses an IV and attempted to punch staff when I looked at his arm.
[2024-12-09 05:54] LABS: NRBC Abs Auto 0.000 X10*3/uL (0.0-0.012); NRBC Pct Auto 0.0 /100WBC (0.0-0.2)
[2024-12-09 05:56] LABS: Hematocrit 28.1 % (42.0-52.0); Hemoglobin 9.1 g/dl (14.0-18.0); Imm Gran Abs Auto 0.22 X10*3/uL (0.00-0.03); Imm Gran Pct Auto 2.1 % (0.0-0.4); Lymphocytes Absolute Auto 2.8 X10*3/uL (1.2-4.9); Mean Corpuscular HGB Conc 32.4 g/dl (31.0-36.0); Mean Corpuscular Hemoglobin 29.0 pg (27.0-33.0); Mean Corpuscular Volume 89.5 fL (80.0-98.0); Red Blood Count 3.14 X10*6/uL (4.60-5.80)
[2024-12-09 06:02] LABS: Platelet Count 325 X10*3/uL (160-400); White Blood Count 10.5 X10*3/uL (4.8-10.8)
[2024-12-09 06:12] LABS: Anion Gap 14 (12-20); Blood Urea Nitrogen 34 mg/dL (9-16); Calcium 8.4 mg/dL (8.4-10.2); Carbon Dioxide 24 mmol/L (22-29); Chloride 105 mmol/L (96-108); Creatinine Clr Calc Pharmacy 41.4; Estimated Glomerular Filt Rate 43; Magnesium 2.3 mg/dL (1.6-2.6); Potassium 4.5 mmol/L (3.3-5.1); Sodium 138 mmol/L (135-145)
--- NOTE | 2024-12-09 12:49 | PM.CCPN ---
Subjective Subjective Date of Service: 12/09/24 Interval History: 64-year-old gentleman with underlying history of COPD, hypertension, adrenal insufficiency on chronic glucocorticoids, dysphagia with aspiration, admitted on 11/28/2024 with acute UTI and alteration of mental status, intubated for airway protection. Patient extubated on 11/29/2024 in transferred to telemetry iqbal on 11/30/2024. Hospital course significant for intermittent agitation and refusal of care. Transferred to the intensive care unit on 12/07/2024 for hypotension. No events overnight. Critical Care Time (minutes): 0 Physical Exam Vital Signs: Vital Signs: Last Vital Signs Temp 97.2 F 12/09/24 08:00 Pulse 103 H 12/09/24 12:00 Resp 25 H 12/09/24 12:00 BP 104/59 L 12/09/24 12:00 Pulse Ox 95 12/09/24 07:00 O2 Del Method Room Air 12/09/24 12:00 O2 Flow Rate 1 11/29/24 21:00 FiO2 24 11/29/24 13:31 BMI result Body Mass Index 19.7 Const: General: no acute distress and other (Sleepy, arousable) Eyes: Sclerae: sclerae normal EOM: EOMs intact bilaterally Neck: Neck: Yes no lymphadenopathy, Yes trachea midline and Yes supple Resp: Effort & Inspection: normal respiratory effort and no respiratory distress Auscultation: clear to auscultation bilaterally Cardio: Rate: regular rate Rhythm: regular rhythm Heart sounds: no gallops, no murmurs and no rubs GI: Palpation (GI): Soft to palpation and Other GI palpation findings present ( Nontender) Auscultation: normal bowel sounds Extrem: General: Yes no pedal edema, No clubbing and No cyanosis Objective Data Labs 12/09/24 05:44 12/09/24 05:44 Labs: Laboratory Results - last 24 hr 12/08/24 12/09/24 08:12 05:44 WBC 10.5 RBC 3.14 L Hgb 9.1 L Hct 28.1 L MCV 89.5 MCH 29.0 MCHC 32.4 RDW 16.6 H Plt Count 325 MPV 9.3 L Immature Gran % (Auto) 2.1 H Neut % (Auto) 51.7 Lymph % (Auto) 26.7 Hawkins % (Auto) 8.1 Eos % (Auto) 10.7 H Baso % (Auto) 0.7 Lymph # (Auto) 2.8 Hawkins # (Auto) 0.9 Eos # (Auto) 1.1 H Baso # (Auto) 0.1 Abs Immat Gran (auto) 0.22 H Absolute Neuts (auto) 5.4 Absolute Nucleated RBC 0.000 Nucleated RBC % (auto) 0.0 Sodium 138 Potassium 4.5 Chloride 105 Carbon Dioxide 24 Anion Gap 14 BUN 34 H Creatinine 1.61 H Estim Creat Clear Calc 41.4 Estimated GFR 43 Random Glucose 76 Calcium 8.4 Phosphorus 4.9 H Magnesium 2.3 Total Bilirubin 0.2 Direct Bilirubin < 0.2 AST 29 ALT 15 Alkaline Phosphatase 71 Total Protein 6.9 Albumin 4.0 Free T4 0.97 Microbiology Microbiology Results: Microbiology 11/28/24 17:07 Blood - Venous Blood Culture - Final No growth after 5 days. 11/28/24 17:07 Blood - Venous Blood Culture - Final No growth after 5 days. 11/28/24 Unknown Urine clean catch - Clean Catch Midstream Urine Culture - Final Escherichia coli Progress Note: A&P Assessment and plan (1) Schizophrenia: Status: Acute (2) Acute renal failure: Status: Acute (3) UTI (urinary tract infection) due to urinary indwelling Heaton catheter: Status: Acute Plan Assessment: 64-year-old gentleman with underlying schizophrenia and adrenal insufficiency admitted with ESBL UTI Plan: Neuro: Seizure with no recurrence. Continue on Keppra. Cardiac: Hypotension, improved. Underlying adrenal insufficiency. Continue hydrocortisone. Pulmonary: No acute issues. Renal: Acute renal failure secondary to ESBL UTI, improving. Continue to monitor renal indices and urine output. Endo: No acute issues. GI: No acute issues. ID: [id number] UTI status post completion of course of meropenem. Heme/Onc: No acute issues. Psych: Underlying schizophrenia, continue Haldol, valproic acid, and benzodiazepines. Miscellaneous: No acute issues. Prophylaxis: Heparin Diet: Regular Quality Stroke Does the patient have a stroke diagnosis?: No VTE Prior VTE?: No VTE Risk Level:: Medical - low VTE Device Contraindication: N/A - Device Ordered VTE Drug Contraindication: N/A - Med Ordered
--- NOTE | 2024-12-09 15:11 | MHC.CM.PN ---
Pt remains in ICU on sedation: needs to have psych eval for med adjustments. CM to follow
[2024-12-09 17:10] LABS: Anion Gap 11 (12-20); Blood Urea Nitrogen 36 mg/dL (9-16); Calcium 8.3 mg/dL (8.4-10.2); Carbon Dioxide 29 mmol/L (22-29); Chloride 102 mmol/L (96-108); Creatinine Clr Calc Pharmacy 40.2; Estimated Glomerular Filt Rate 42; Potassium 4.6 mmol/L (3.3-5.1); Sodium 137 mmol/L (135-145)
--- NOTE | 2024-12-09 17:27 | PC.NURSE ---
Assumed care at 0700. Upon initial assessment, pt asleep. 1:1 sitter in room for safety. Once awake, pt reasonably calm and redirectable. Pt encouraged to drink fluids. Pt repositioned q2hr as tolerated. See MAR and assessments for further details. Fall & safety precautions in place.
[2024-12-10] VITALS (17 sets, daily range): BP systolic 93–126; BP diastolic 46–85; PULSE 68–97; RESP 14–30; TEMP 36–37.1; O2SAT 86–99; BMI 19.8
[2024-12-10 05:34] LABS: Hematocrit 28.4 % (42.0-52.0); Hemoglobin 9.0 g/dl (14.0-18.0); Mean Corpuscular Volume 89.3 fL (80.0-98.0); Platelet Count 353 X10*3/uL (160-400); Red Blood Count 3.18 X10*6/uL (4.60-5.80)
[2024-12-10 05:55] LABS: Calcium 8.3 mg/dL (8.4-10.2); Chloride 107 mmol/L (96-108); Potassium 4.7 mmol/L (3.3-5.1); Sodium 139 mmol/L (135-145)
--- NOTE | 2024-12-10 09:48 | P.PNCC_ITS ---
Subjective Subjective Date of Service: 12/10/24 Interval History: 64-year-old gentleman with underlying history of COPD, hypertension, adrenal insufficiency on chronic glucocorticoids, dysphagia with aspiration, admitted on 11/28/2024 with acute UTI and alteration of mental status, intubated for airway protection. Patient extubated on 11/29/2024 in transferred to telemetry iqbal on 11/30/2024. Hospital course significant for intermittent agitation and refusal of care. Transferred to the intensive care unit on 12/07/2024 for hypotension. No events overnight. Critical Care Time (minutes): 0 Physical Exam 2 Vital Signs: Vital Signs: Last Vital Signs Temp 96.9 F 12/10/24 08:00 Pulse 68 12/10/24 09:00 Resp 22 H 12/10/24 09:00 BP 93/54 L 12/10/24 09:00 Pulse Ox 94 12/10/24 09:00 O2 Del Method Room Air 12/10/24 09:00 O2 Flow Rate 1 11/29/24 21:00 FiO2 24 11/29/24 13:31 BMI result Body Mass Index 19.8 Const: General: no acute distress, alert and awake Eyes: Sclerae: sclerae normal EOM: EOMs intact bilaterally Neck: Neck: Yes no lymphadenopathy, Yes trachea midline and Yes supple Resp: Effort & Inspection: normal respiratory effort and no respiratory distress Auscultation: clear to auscultation bilaterally Cardio: Rate: regular rate Rhythm: regular rhythm Heart sounds: no gallops, no murmurs and no rubs GI: Palpation (GI): Soft to palpation and Other GI palpation findings present ( Nontender) Auscultation: normal bowel sounds Extrem: General: Yes no pedal edema, No clubbing and No cyanosis Objective Data Labs 12/10/24 05:19 12/10/24 05:19 Labs: Laboratory Results - last 24 hr 12/09/24 12/10/24 16:39 05:19 WBC 10.9 H RBC 3.18 L Hgb 9.0 L Hct 28.4 L MCV 89.3 MCH 28.3 MCHC 31.7 RDW 16.8 H Plt Count 353 MPV 8.7 L Immature Gran % (Auto) 1.9 H Neut % (Auto) 54.3 Lymph % (Auto) 24.4 Wilson % (Auto) 6.4 Eos % (Auto) 12.4 H Baso % (Auto) 0.6 Lymph # (Auto) 2.7 Wilson # (Auto) 0.7 Eos # (Auto) 1.3 H Baso # (Auto) 0.1 Abs Immat Gran (auto) 0.21 H Absolute Neuts (auto) 5.9 Absolute Nucleated RBC 0.020 H Nucleated RBC % (auto) 0.2 Sodium 137 139 Potassium 4.6 4.7 Chloride 102 107 Carbon Dioxide 29 23 Anion Gap 11 L 14 BUN 36 H 38 H Creatinine 1.66 H 1.67 H Estim Creat Clear Calc 40.2 39.9 Estimated GFR 42 41 Random Glucose 94 87 Calcium 8.3 L 8.3 L Phosphorus 5.0 H Magnesium 2.4 Albumin 3.4 L Microbiology Microbiology Results: Microbiology 11/28/24 17:07 Blood - Venous Blood Culture - Final No growth after 5 days. 11/28/24 17:07 Blood - Venous Blood Culture - Final No growth after 5 days. 11/28/24 Unknown Urine clean catch - Clean Catch Midstream Urine Culture - Final Escherichia coli Progress Note: A&P Assessment and plan (1) Schizophrenia: Status: Acute (2) UTI (urinary tract infection) due to urinary indwelling Heaton catheter: Status: Acute Plan Assessment: 64-year-old gentleman with underlying schizophrenia and adrenal insufficiency admitted with ESBL UTI Plan: Neuro: Seizure with no recurrence. Continue on Keppra. Cardiac: Hypotension, improved. Underlying adrenal insufficiency. Continue hydrocortisone. Pulmonary: No acute issues. Renal: Acute renal failure secondary to ESBL UTI, improving. Non oliguric. Continue to monitor renal indices and urine output. Endo: No acute issues. GI: No acute issues. ID: [id number] UTI status post completion of course of meropenem. Heme/Onc: No acute issues. Psych: Underlying schizophrenia, continue Haldol, valproic acid, and benzodiazepines. Miscellaneous: No acute issues. Prophylaxis: Heparin Diet: Regular Quality Stroke Does the patient have a stroke diagnosis?: No VTE Prior VTE?: No VTE Risk Level:: Medical - low VTE Device Contraindication: N/A - Device Ordered VTE Drug Contraindication: N/A - Med Ordered
--- NOTE | 2024-12-10 14:29 | PC.NURSE ---
RN assumed care of pt at 0700. 1:1 sitter remains in room for patient's safety. Pt alert, oriented to self and place. Resps even and nonlabored, lungs diminished, on room air. Bilateral tops of feet noted to have a few scabbed areas, no redness or drainage noted. F/C patent and draining. Abd soft, nontender, +bowel sounds. Large BM today 12/10/24 on bedpan. Pt cooperative with ADL's, assisting in his care. Plan to transfer to med/surg.
--- NOTE | 2024-12-10 15:50 | PM.EVENT ---
Event Note Date of Service: 12/11/24 Event Note: Patient was downgraded from ICU this afternoon. Awake and somewhat agitated but otherwise denies any new complaints Physical exam and assessment plan as per ICU note Time Spent With Patient Time: Total time managing care of this patient today ____ minutes.
--- NOTE | 2024-12-10 23:16 | PC.NURSE ---
Patient threw up when receiving his 9pm meds, later saying he was feeling nauseous prior. He doesn't have IV access to receive any IV antiemetics and he doesn't want one inserted. This RN re-attempted to go back and administer his meds at a later time when patient was feeling better but patient refused.
--- NOTE | 2024-12-11 | EEG_ITS ---
Roomed Performed:?402 Reason: ? seizure History: COPD, HTN, ? adrenal insufficiency, schizoaffective disorder - Patient presented from SNF on 11/28/24 to the ED with AMS, severe hypoxia, septic shock from UTI and aspiration pneumonia. Question of delusional/schizoaffective versus encephalopathy. Medication: divalproex, haloperidol, hydrocortisone, levetiracetam, liothyronine Technical description Photic stimulation: completed Hyperventilation:?omitted Behavioral state: pt sleepy, answers questions appropriately State of Consciousness: awake and sleep Skull defect: none Sedation: none Handedness: right Duration of study:?22 min 39 sec Description: This is a 16 channel EEG with an EKG lead. Patient is reported awake and sleep during the tracing. Background EEG rhythm is 7-8 hertz 5-100 microvolt posteriorly lower amplitude fast anteriorly. At times, patient transitioned into generalized delta range slowing. Intermittently, left asymmetric sharply controlled theta range discharges are noted. Photic stimulation does not produce any significant driving. Hyperventilation is unremarkable. Cardiac lead does not reveal any significant abnormality. Impression: Mildly abnormal EEG though not diagnostic of epilepsy. If seizure disorder is strongly suspected, 48 hour ambulatory EEG is recommended. MTDD
[2024-12-11 04:00] VITALS: BP 122/59; PULSE 68; RESP 18; TEMP 36.8; O2SAT 94
[2024-12-11 06:00] VITALS: BMI 19.7
[2024-12-11 07:54] VITALS: BP 127/84; PULSE 74; RESP 16; TEMP 36.3; O2SAT 95
--- NOTE | 2024-12-11 09:01 | HO.PM.IMPN ---
Subjective Subjective Date of Service: 12/11/24 Interval History: agiatation intermittent Review of Systems no new c/o Review of Systems: Yes all other systems are reviewed and are negative Physical Exam Exam: Exam: Appearance: no in acute distress. cvs: rrr, [id number]. res: clear to auscultation ,no rhonchii or wheezing abd: no rebound or guarding ,nt, bs present. ext pulses present , no cyanosis. neuro: moves all ext Vital Signs: Vital Signs: Last Vital Signs Temp 97.4 F 12/11/24 07:54 Pulse 74 12/11/24 07:54 Resp 16 12/11/24 07:54 BP 127/84 12/11/24 07:54 Pulse Ox 95 12/11/24 07:54 O2 Del Method Room Air 12/11/24 07:54 O2 Flow Rate 1 11/29/24 21:00 FiO2 24 11/29/24 13:31 BMI result Body Mass Index 19.7 Objective Data Active Medications Divalproex Sodium (Divalproex Sodium 500 Mg Tablet.) 1,000 mg PO BID [facility] Last Admin: 12/11/24 08:24 Dose: 1,000 mg Documented By: RINA Haloperidol (Haloperidol 5 Mg Tablet) 15 mg PO TID [facility] Last Admin: 12/11/24 08:24 Dose: 15 mg Documented By: RINA Heparin Sodium (Porcine) (Heparin Sodium,Porcine 5,000 Unit/Ml Vial) 5,000 unit SUBCUT Q8H [facility] Last Admin: 12/11/24 08:30 Dose: Not Given Documented By: RINA Non-Admin Reason: Patient Refused Hydrocortisone (Hydrocortisone 10 Mg Tablet) 15 mg PO BIDWM [facility] Last Admin: 12/11/24 08:24 Dose: 15 mg Documented By: RINA Levetiracetam (Levetiracetam 1,000 Mg Tablet) 1,000 mg PO BID [facility] Last Admin: 12/11/24 08:23 Dose: 1,000 mg Documented By: RINA Levothyroxine Sodium (Levothyroxine Sodium 150 Mcg Tablet) 150 mcg PO DAILY@0600 [facility] Last Admin: 12/11/24 05:15 Dose: 150 mcg Documented By: SHIV Liothyronine Sodium (Liothyronine Sodium 25 Mcg Tablet) 5 mcg PO DAILY [facility] Lorazepam (Lorazepam 0.5 Mg Tablet) 0.5 mg PO TID [facility] Last Admin: 12/11/24 08:23 Dose: 0.5 mg Documented By: RINA Labs 12/11/24 09:59 12/11/24 09:59 Assessment and Plan (1) UTI (urinary tract infection) due to urinary indwelling Heaton catheter: Status: Acute (2) Seizure: Status: Acute Plan 64M PMH copd, htn, ?adrenal insufficiency, schizoaffective disorder [facility] with ams, severe hypoxia, septic shock from uti and aspiratoin pneumonia, was admitted to ICU, intubated, on pressors. Patient was extubated on 11/29/2024 and downgraded to medical floor on 11/30/2024- Hospital course significant for intermittent agitation and refusal of care-went to icu on 12/08(please see icu note)-transferred back from ICU yesterday.. delusional vs seizure (12/08) acute elevated lactic acid resolved prompthy with hydration(likely sec to seizure ) Acute elevated lactic acid-resolved quickly with the hydration. ammonia normal tsh elevated ,but free t4 normal plan: Seen by neuro: Delusional/schizoaffective versus question of an encephalopathy: Encephalopathy seems to be resolved, less likely seizure Suggested EEG which ordered. will add psych eval also -for behaviour agaiattaion and medication management. acute metabolic encephalopathy, acute hypoxic respiratory failure due to aspiration pneumonia and urinary tract infection septic shock resolved (in icu), not hypoxic unclear basleine -gets agitated (mood seems labile all the time). Continue IV meropenem and follow up cultures, blood culture so far negative, urine culture grew ESBL ecoli Multiple IV line attempt made to give IV antibiotics, patient is not cooperative, removed multiple IV lines including midline-please see ID note for more details. Incidental finding of dilated appendix - was seen by surgery felt this is benign, has 1 episode of vomiting ,no other symptoms -as per surgery if persistent vomiting then will need to repear abd imaging. Incidental finding of bilateral hydroureter without obstruction - seen by Urology recommended conservative management Questionable history of adrenal insufficiency Continue steroids. Acute kidney injury-though to Due to sec to intial shock(which is resolved) Creatinine is similar 1.5-1.6 range Schizoaffective disorder Continue lorazepam, Haldol, Depakote, Cogentin. Hypothyroid Levothyroxine DVT prophylaxis with heparin subQ Full code Quality Stroke Does the patient have a stroke diagnosis?: No VTE Prior VTE?: No VTE Risk Level:: Medical - low VTE Device Contraindication: N/A - Device Ordered VTE Drug Contraindication: N/A - Med Ordered
[2024-12-11 10:24] LABS: MANUAL DIFF FLAG NO
[2024-12-11 10:29] LABS: Hematocrit 28.8 % (42.0-52.0); Hemoglobin 9.3 g/dl (14.0-18.0); Imm Gran Abs Auto 0.11 X10*3/uL (0.00-0.03); Imm Gran Pct Auto 0.9 % (0.0-0.4); Lymphocytes Absolute Auto 3.1 X10*3/uL (1.2-4.9); Mean Corpuscular HGB Conc 32.3 g/dl (31.0-36.0); Mean Corpuscular Hemoglobin 29.0 pg (27.0-33.0); Mean Corpuscular Volume 89.7 fL (80.0-98.0); NRBC Abs Auto 0.000 X10*3/uL (0.0-0.012); NRBC Pct Auto 0.0 /100WBC (0.0-0.2); Platelet Count 370 X10*3/uL (160-400); Red Blood Count 3.21 X10*6/uL (4.60-5.80); White Blood Count 12.6 X10*3/uL (4.8-10.8)
[2024-12-11 11:01] LABS: Anion Gap 11 (12-20); Blood Urea Nitrogen 37 mg/dL (9-16); Calcium 8.8 mg/dL (8.4-10.2); Carbon Dioxide 33 mmol/L (22-29); Chloride 101 mmol/L (96-108); Creatinine Clr Calc Pharmacy 41.9; Estimated Glomerular Filt Rate 44; Magnesium 2.1 mg/dL (1.6-2.6); Potassium 4.1 mmol/L (3.3-5.1); Sodium 141 mmol/L (135-145)
--- NOTE | 2024-12-11 13:47 | MHC.CM.PN ---
EMR REVIEWED AND PER MD ROUNDS, PT IS NOT YET MEDICALLY CLEARED FOR DC BACK TO SNF. [facility] UPDATED VIA [facility]. CM WILL CONTINUE TO FOLLOW
[2024-12-11 15:30] VITALS: BP 136/82; PULSE 84; RESP 16; TEMP 36.3; O2SAT 98
[2024-12-11 19:10] VITALS: BP 164/74; PULSE 102; RESP 16; TEMP 36.2; O2SAT 92
[2024-12-12] VITALS (9 sets, daily range): BP systolic 74–162; BP diastolic 48–136; PULSE 86–126; RESP 16–18; TEMP 36.3–38.3; O2SAT 93–97; BMI 19.5
--- NOTE | 2024-12-12 06:04 | PC.NURSE ---
Pt's mahoney catheter not draining all night, bladder scanned pt for 810 ml. Tried to flush mahoney and unable to. Mahoney pulled out and new mahoney inserted at 0555. Draining a brown urine now.
--- NOTE | 2024-12-12 10:39 | P.DS_ITS ---
DS: Providers Provider Date of Service: 12/12/24 Date of admission: 11/28/24 17:25 Date of discharge: 12/12/24 Primary care physician: Fernando eMdina MD Consults: 11/28/24 20:04 Consult to Urology Stat Consulting Provider: [facility] Reason for consultation: Bilat hydroureteronephrosis sepsis UTI Has provider been notified: No 11/28/24 20:05 Consult to General Surgery Stat Consulting Provider: [facility] Sur[facility] Reason for consultation: acute apendicitis, sepsis shock Has provider been notified: No 12/02/24 11:19 Consult to Nephrology Routine Consulting Provider: [facility] Reason for consultation: clearance for midline 12/04/24 17:27 Consult to Psychiatry Routine Consulting Provider: [facility] Psych Covering Reason for consultation: interfereingwith medical treatments /schzophrenia Has provider been notified: No 12/05/24 12:23 Consult to Infectious Diseases Routine Consulting Provider: [facility] Reason for consultation: esbl uti Has provider been notified: No 12/08/24 08:07 Consult to Neurology Routine Consulting Provider: [facility] Reason for consultation: Seizure Has provider been notified: No 12/08/24 08:15 Consult for Sitter Routine Reason for consultation: Agitation Has provider been notified: No DS: Diagnosis Discharge Diagnosis (1) UTI (urinary tract infection) due to urinary indwelling Heaton catheter: Status: Acute (2) Seizure: Status: Acute DS: Summary Hospital Course Hospital Course: from initial hpi: 64-year-old gentleman with past medical history of COPD, hypertension, hypocortisolism, living in a assisted with risk of aspiration was found to have UTI, started on ceftriaxone 1g yesterday was found hypotensive and altered sensorium is transferred to ED where he was intubated and placed on ventilator support. Hypotensive started on levophed support. Difficulty in oxygenation. MICU consulted for adission. hospital course: Patient was admitted for septic shock and acute hypoxic respiratory failure due to urinary tract infection from ESBL E coli and aspiration pneumonia was admitted 11/28/2024 to the intensive care unit and intubated and placed on vasopressors, treated with meropenem. Extubated the next day and downgraded to medical floor on 11/30/2024, course was complicated by intermittent agitation refusal of care. On 12/08/2024 had episode of severe agitation possibly acute metabolic encephalopathy due to seizure with agitated postictal state. Patient had acute lactic acid of 11 which quickly resolved. Was readmitted to the intensive care unit for hypotension, downgraded back to medical floor on 12/10/2024. Mental status returned to baseline. Was seen by infectious disease who recommended holding off on further antibiotics especially given carbapenem lowering of seizure threshold. For history of adrenal insufficiency was continued on hydrocortisone. For acute kidney injury on CKD 3 creatinine returned to baseline of 1.5. For schizoaffective disorder was continued on lorazepam, Haldol, Depakote, Cogentin. For seizure disorder is on Depakote and Keppra has been added. For hypothyroid was continued levothyroxine. TSH was noted to be elevated to the 60s with a normal T4 unclear if had recent med adjustment, does not appear clinically hypothyroid should recheck TSH in 2 weeks. For chronic urinary retention chronic Heaton has been replaced. Patient will be discharged back to [facility]. Time Attestation Discharge Coordination Time (in mins): 34 Quality: Safe Use of Opioids Does Pt have an Active Cancer Diagnosis on the Problem List?: No Quality: Stroke Does the patient have a stroke diagnosis?: No Physical Exam Exam: Exam: Appearance: no in acute distress. cvs: rrr, [id number]. res: clear to auscultation ,no rhonchii or wheezing abd: no rebound or guarding ,nt, bs present. ext pulses present , no cyanosis. neuro: moves all ext Vital Signs: Vital Signs: Last Vital Signs Temp 98.5 F 12/12/24 08:00 Pulse 94 12/12/24 08:00 Resp 16 12/12/24 08:00 BP 91/54 L 12/12/24 08:00 Pulse Ox 96 12/12/24 08:00 O2 Del Method Room Air 12/12/24 08:00 O2 Flow Rate 1 11/29/24 21:00 FiO2 24 11/29/24 13:31 BMI result Body Mass Index 19.5 DS: Data Data Completed and Pending Labs on day of discharge: Laboratory Results - last 24 hr 12/11/24 09:59 Sodium 141 Potassium 4.1 Chloride 101 Carbon Dioxide 33 H Anion Gap 11 L BUN 37 H Creatinine 1.59 H Estim Creat Clear Calc 41.9 Estimated GFR 44 Random Glucose 76 Calcium 8.8 D Phosphorus 4.2 Magnesium 2.1 Discharge Plan Discharge Anticipated Discharge Date/Time: 12/12/24 10:32 Patient Disposition: Xfer Other Discharge Diagnosis: sz. pna Referrals: [facility] [Outside] - 1 Week Referral Note: [facility] Fernando Medina MD [Primary Care Provider, Rheumatology] - 1 Week Discharge Medications: New levetiracetam 1,000 mg Tablet 1,000 mg PO BID Qty: 0 0RF Continued hydrocortisone 5 mg tablet 15 mg PO BEDTIME hydrocortisone 5 mg tablet 15 mg PO DAILY acetaminophen 325 mg Suppository 325 mg [place] Q4H PRN (Reason: Constipation) acetaminophen 325 mg Tablet 975 mg PO Q6H PRN (Reason: Pain) benztropine 0.5 mg tablet 0.5 mg PO BID ipratropium-albuterol 0.5 mg-3 mg(2.5 mg base)/3 mL Solution For Nebulization 3 ml INHALATION Q6H PRN (Reason: Shortness Of Breath Or Wheezing) haloperidol 5 mg tablet 15 mg PO TID trazodone 50 mg tablet 25 mg PO BID naloxone 0.4 mg/mL Solution 0.4 mg SUBCUT Q2M PRN (Reason: Opiate Reversal) Rx Instructions: NTExceed 10 mg total dose/episode thiamine HCl (vitamin B1) 100 mg Tablet 100 mg PO DAILY divalproex 500 mg tablet,delayed release (DR/EC) 1,000 mg PO BID liothyronine 5 mcg tablet 5 mcg PO DAILY aspirin 81 mg Tablet,Delayed Release (Dr/Ec) 81 mg PO DAILY famotidine 20 mg Tablet 20 mg PO DAILY lorazepam 0.5 mg tablet 0.5 mg PO TID magnesium hydroxide [Milk of Magnesia] 400 mg/5 mL Suspension 30 ml PO DAILY PRN (Reason: Constipation) simvastatin 5 mg tablet 5 mg PO BEDTIME bisacodyl 10 mg Suppository 10 mg KY DAILY PRN (Reason: Constipation) levothyroxine 150 mcg tablet 150 mcg PO DAILY@0600 [place] Enema 19-7 gram/118 mL Enema 118 ml KY DAILY PRN (Reason: Constipation) albuterol sulfate [Ventolin HFA] 90 mcg/actuation HFA aerosol inhaler 2 puff inhalation Q6H PRN (Reason: Shortness Of Breath Or Wheezing) naloxone 4 mg/actuation [place],Non-Aerosol 4 mg INTRANASAL Q3M PRN (Reason: Opiate Reversal) Rx Instructions: spray 1 dose into ONE nostril; alternate nostrils w each dose until help arrives Discontinued doxycycline hyclate 100 mg capsule 100 mg PO BID Rx Instructions: end date 12/09/24 azithromycin 250 mg tablet 500 mg PO DAILY Rx Instructions: end date 11/30/24 azithromycin 250 mg tablet 250 mg PO DAILY Rx Instructions: end date 12/04/24 ceftriaxone 1 gram Recon Soln 1 g IM DAILY Rx Instructions: end date 11/29/24 Discharge Orders: Discharge Order (Routine); Ordered 12/12/24 Ordered By: Kevon Borrego Diet: Advance to usual diet Activity on Discharge: As tolerated Stand Alone Forms: Patient Portal Discharge page Print Language: Portuguese Care Plan Goals: recovery Health Concerns: seziures, aspriation, elevated tsh Plan of Treatment: NDD3 solids, thin liquids, started keppra, recheck tsh in 2 weeks Assessment: see above
--- NOTE | 2024-12-12 10:51 | MHC.CM.PN ---
Addendum entered by Fidelia Nieves 12/12/24 11:46: DP: DC HAS BEEN CX DUE TO LOW BP, [facility] UPD[facility]. CM WILL CONTINUE TO FOLLOW Original Note: DP: PT HAS BEEN MEDICALLY CLEARED FOR DC BACK TO [facility]. BLS TRANSPORT BOOKED FOR 1 PM VIA [facility]. RN UPDATED. HCP [facility] UPDATED VIA TELEPHONE AND FINAL IMM DELIVERED. [facility]ENTER AWARE OF DC.
--- NOTE | 2024-12-12 11:10 | HO.PM.IMPN ---
Subjective Subjective Date of Service: 12/12/24 Interval History: no complaints Physical Exam Exam: Exam: Appearance: no in acute distress. cvs: rrr, [id number]. res: clear to auscultation ,no rhonchii or wheezing abd: no rebound or guarding ,nt, bs present. ext pulses present , no cyanosis. neuro: moves all ext Vital Signs: Vital Signs: Last Vital Signs Temp 98.5 F 12/12/24 08:00 Pulse 94 12/12/24 08:00 Resp 16 12/12/24 08:00 BP 91/54 L 12/12/24 08:00 Pulse Ox 96 12/12/24 08:00 O2 Del Method Room Air 12/12/24 08:00 O2 Flow Rate 1 11/29/24 21:00 FiO2 24 11/29/24 13:31 BMI result Body Mass Index 19.5 Objective Data Active Medications Divalproex Sodium (Divalproex Sodium 500 Mg Tablet.) 1,000 mg PO BID [facility] Last Admin: 12/12/24 08:21 Dose: 1,000 mg Documented By: ASHER Haloperidol (Haloperidol 5 Mg Tablet) 15 mg PO TID [facility] Last Admin: 12/12/24 08:21 Dose: 15 mg Documented By: ASHER Heparin Sodium (Porcine) (Heparin Sodium,Porcine 5,000 Unit/Ml Vial) 5,000 unit SUBCUT Q8H [facility] Last Admin: 12/12/24 08:30 Dose: Not Given Documented By: ASHER Non-Admin Reason: Patient Refused Hydrocortisone (Hydrocortisone 10 Mg Tablet) 15 mg PO BIDWM [facility] Last Admin: 12/12/24 08:21 Dose: 15 mg Documented By: ASHER Sodium Chloride (Ns) 1,000 mls @ 999 mls/hr IV .Q1H1M [facility] Stop: 12/12/24 12:15 Levetiracetam (Levetiracetam 1,000 Mg Tablet) 1,000 mg PO BID [facility] Last Admin: 12/12/24 08:21 Dose: 1,000 mg Documented By: ASHER Levothyroxine Sodium (Levothyroxine Sodium 150 Mcg Tablet) 150 mcg PO DAILY@0600 [facility] Last Admin: 12/12/24 05:16 Dose: Not Given Documented By: HO.[email or web address] Non-Admin Reason: Patient Refused Liothyronine Sodium (Liothyronine Sodium 25 Mcg Tablet) 5 mcg PO DAILY [facility] Lorazepam (Lorazepam 0.5 Mg Tablet) 0.5 mg PO TID [facility] Last Admin: 12/12/24 08:21 Dose: 0.5 mg Documented By: ASHER Labs 12/11/24 09:59 12/11/24 09:59 Assessment and Plan (1) UTI (urinary tract infection) due to urinary indwelling Heaton catheter: Status: Acute (2) Seizure: Status: Acute Plan 64M PMH copd, htn, adrenal insufficiency, schizoaffective disorder [facility] with ams, severe hypoxia, septic shock from uti and aspiratoin pneumonia, was admitted to ICU, intubated, on pressors. Patient was extubated on 11/29/2024 and downgraded to medical floor on 11/30/2024- Hospital course significant for intermittent agitation and refusal of care-went to icu on 12/08 after presumed seizure, hypotension, lactic acidosis-transferred back from ICU 12/10/24.. acute metabolic encephalopathy, acute hypoxic respiratory failure due to aspiration pneumonia and urinary tract infection septic shock resolved (in icu), not hypoxic completed treatement for ESBL UTI Incidental finding of dilated appendix - was seen by surgery felt this is benign, has 1 episode of vomiting ,no other symptoms -as per surgery if persistent vomiting then will need to repear abd imaging. Incidental finding of bilateral hydroureter without obstruction - seen by Urology recommended conservative management seizure depakote, keppra history of adrenal insufficiency Continue steroids. Acute kidney injury-though to Due to sec to intial shock(which is resolved) Creatinine is similar 1.5-1.6 range Schizoaffective disorder Continue lorazepam, Haldol, Depakote, Cogentin. Hypothyroid Levothyroxine DVT prophylaxis with heparin subQ Full code reason for continued hospitalization:dispo planning Quality Stroke Does the patient have a stroke diagnosis?: No VTE Prior VTE?: No VTE Risk Level:: Medical - low VTE Device Contraindication: N/A - Device Ordered VTE Drug Contraindication: N/A - Med Ordered
[2024-12-12 14:27] LABS: Hematocrit 30.4 % (42.0-52.0); Hemoglobin 9.6 g/dl (14.0-18.0); Imm Gran Abs Auto 0.24 X10*3/uL (0.00-0.03); Imm Gran Pct Auto 0.8 % (0.0-0.4); Lymphocytes Absolute Auto 1.1 X10*3/uL (1.2-4.9); Mean Corpuscular HGB Conc 31.6 g/dl (31.0-36.0); Mean Corpuscular Hemoglobin 28.5 pg (27.0-33.0); Mean Corpuscular Volume 90.2 fL (80.0-98.0); NRBC Abs Auto 0.000 X10*3/uL (0.0-0.012); NRBC Pct Auto 0.0 /100WBC (0.0-0.2); Platelet Count 342 X10*3/uL (160-400); Red Blood Count 3.37 X10*6/uL (4.60-5.80); SCAN SMEAR FLAG 1
[2024-12-12 14:33] LABS: White Blood Count 30.8 X10*3/uL (4.8-10.8)
[2024-12-12 14:40] LABS: Anion Gap 15 (12-20); Carbon Dioxide 29 mmol/L (22-29); Chloride 102 mmol/L (96-108); Potassium 4.7 mmol/L (3.3-5.1); Sodium 141 mmol/L (135-145)
[2024-12-12 14:41] LABS: Blood Urea Nitrogen 35 mg/dL (9-16); Calcium 8.2 mg/dL (8.4-10.2); Creatinine Clr Calc Pharmacy 33.7; Estimated Glomerular Filt Rate 34; Magnesium 1.9 mg/dL (1.6-2.6)
--- NOTE | 2024-12-12 14:43 | PM.EVENT ---
Event Note Date of Service: 12/12/24 Event Note: discharge defered for ams and hypotension will restart mere, repeat cultures Time Spent With Patient Time: Total time managing care of this patient today ____ minutes.
[2024-12-12 15:29] LABS: MANUAL DIFF FLAG NO
[2024-12-12 17:39] LABS: Reflex Lactate? No addnl Lactic Acid
[2024-12-12 19:20] LABS: Cancel Lactic Acid Canceled
[2024-12-13 03:49] VITALS: BP 120/67; PULSE 62; RESP 16; TEMP 36.9; O2SAT 99
[2024-12-13 06:00] VITALS: BMI 19.9
[2024-12-13 07:55] VITALS: BP 125/60; PULSE 110; RESP 18; TEMP 36.4; O2SAT 95
--- NOTE | 2024-12-13 11:43 | P.PNIM_ITS ---
Subjective Subjective Date of Service: 12/13/24 Interval History: Discharged cancelled yesterday due to altered mental status, hypotension, fever Currently appears back to baseline Physical Exam 2 Exam: Exam: Appearance: no in acute distress. cvs: rrr, [id number]. res: clear to auscultation ,no rhonchii or wheezing abd: no rebound or guarding ,nt, bs present. ext pulses present , no cyanosis. neuro: moves all ext Vital Signs: Vital Signs: Last Vital Signs Temp 97.5 F 12/13/24 07:55 Pulse 110 H 12/13/24 07:55 Resp 18 12/13/24 07:55 BP 125/60 12/13/24 07:55 Pulse Ox 95 12/13/24 07:55 O2 Del Method Room Air 12/13/24 07:55 O2 Flow Rate 1 11/29/24 21:00 FiO2 24 11/29/24 13:31 BMI result Body Mass Index 19.9 Objective Data Active Medications Divalproex Sodium (Divalproex Sodium 500 Mg Tablet.) 1,000 mg PO BID [facility] Last Admin: 12/13/24 09:50 Dose: 1,000 mg Documented By: AYANNA Haloperidol (Haloperidol 5 Mg Tablet) 15 mg PO TID [facility] Last Admin: 12/13/24 09:50 Dose: 15 mg Documented By: AYANNA Heparin Sodium (Porcine) (Heparin Sodium,Porcine 5,000 Unit/Ml Vial) 5,000 unit SUBCUT Q8H [facility] Last Admin: 12/13/24 10:23 Dose: Not Given Documented By: AYANNA Non-Admin Reason: Patient Refused Hydrocortisone (Hydrocortisone 10 Mg Tablet) 15 mg PO BIDWM [facility] Last Admin: 12/13/24 09:50 Dose: 15 mg Documented By: AYANNA Levetiracetam (Levetiracetam 1,000 Mg Tablet) 1,000 mg PO BID [facility] Last Admin: 12/13/24 09:50 Dose: 1,000 mg Documented By: AYANNA Levothyroxine Sodium (Levothyroxine Sodium 150 Mcg Tablet) 150 mcg PO DAILY@0600 [facility] Last Admin: 12/13/24 06:07 Dose: Not Given Documented By: FRANK Non-Admin Reason: Patient Refused Liothyronine Sodium (Liothyronine Sodium 25 Mcg Tablet) 5 mcg PO DAILY [facility] Lorazepam (Lorazepam 0.5 Mg Tablet) 0.5 mg PO TID [facility] Last Admin: 12/13/24 09:50 Dose: 0.5 mg Documented By: AYANNA Meropenem (Meropenem 1 Gm Vial) 1 gm IVPUSH Q12H [facility] Last Admin: 12/13/24 02:28 Dose: 1 gm Documented By: ANDRE Labs 12/12/24 14:15 12/12/24 14:15 Labs: Laboratory Results - last 24 hr 12/12/24 12/12/24 14:15 16:18 MCV 90.2 MCH 28.5 MCHC 31.6 RDW 16.5 H Plt Count 342 MPV 8.9 L Immature Gran % (Auto) 0.8 H Neut % (Auto) 90.4 H Lymph % (Auto) 3.5 L [place] % (Auto) 2.5 Eos % (Auto) 2.3 Baso % (Auto) 0.5 Lymph # (Auto) 1.1 L [place] # (Auto) 0.8 Eos # (Auto) 0.7 H Baso # (Auto) 0.2 Abs Immat Gran (auto) 0.24 H Absolute Neuts (auto) 27.8 H Absolute Nucleated RBC 0.000 Nucleated RBC % (auto) 0.0 Anion Gap 15 Estim Creat Clear Calc 33.7 Estimated GFR 34 Random Glucose 103 Lactic Acid 2.9 H* Calcium 8.2 L D Phosphorus 4.5 Magnesium 1.9 Assessment and Plan (1) UTI (urinary tract infection) due to urinary indwelling Heaton catheter: Status: Acute (2) Seizure: Status: Acute Plan 64M PMH copd, htn, adrenal insufficiency, schizoaffective disorder [facility]24 with ams, severe hypoxia, septic shock from uti and aspiratoin pneumonia, was admitted to ICU, intubated, on pressors. Patient was extubated on 11/29/2024 and downgraded to medical floor on 11/30/2024- Hospital course significant for intermittent agitation and refusal of care-went to icu on 12/08 after presumed seizure, hypotension, lactic acidosis-transferred back from ICU 12/10/24.. acute metabolic encephalopathy, acute hypoxic respiratory failure due to aspiration pneumonia and urinary tract infection septic shock resolved (in icu), not hypoxic completed treatement for ESBL UTI Incidental finding of dilated appendix - was seen by surgery felt this is benign, has 1 episode of vomiting ,no other symptoms -as per surgery if persistent vomiting then will need to repear abd imaging. Incidental finding of bilateral hydroureter without obstruction - seen by Urology recommended conservative management Initially fully resolved and plan was for discharge on 12/12/2024 and then had another episode of fever and hypotension with altered mental status Restarted on meropenem due to ESBL in urine previously, follow up blood cultures seizure rebekah cochran history of adrenal insufficiency Continue steroids. Acute kidney injury-though to Due to sec to intial shock(which is resolved) Creatinine is similar 1.5-1.6 range Schizoaffective disorder Continue lorazepam, Haldol, Depakote, Cogentin. Hypothyroid Levothyroxine DVT prophylaxis with heparin subQ Full code reason for continued hospitalization:fever Quality Stroke Does the patient have a stroke diagnosis?: No VTE Prior VTE?: No VTE Risk Level:: Medical - low VTE Device Contraindication: N/A - Device Ordered VTE Drug Contraindication: N/A - Med Ordered
[2024-12-13] MEDS: levETIRAcetam in NaCl (iso-os) 1,000 MG/100 ML PIGGYBACK 400 MG IV ×2 (12:23→23:27)
--- NOTE | 2024-12-13 12:46 | MHC.CM.PN ---
EMR REVIEWED AND PER MD ROUNDS, PT IS NOT MEDICALLY CLEARED FOR DC BACK TO [facility] (FEBRILE LAST RANJITH, REPEAT BLOOD CULTURES PENDING) [facility] UPDATED VIA [facility]. CM WILL CONTINUE TO FOLLOW FOR PLAN.
[2024-12-13 15:23] VITALS: BP 137/68; PULSE 115; RESP 18; TEMP 36.4; O2SAT 94
[2024-12-13] MEDS: Lactated Ringers 1,000 ML 80 ML IVCONT (17:18)
--- NOTE | 2024-12-13 17:22 | MHC.SL.SWA ---
Speech Pathologist Impression: Risk of Aspiration Due to: mild to moderate oral pharyngeal dysphagia Dysphasia Diet Status: recommend downgrade to CHOPPED/ADVANCED (NDD3) with THIN liquids, pills whole or crushed in puree. Liquid Consistency and Strategies for Safe Swallow: Liquid Intake Recommendation: Thin Liquid Intake Strategies: Small Sips No Straws Solid Food Consistency: Dietary Recommendations: Chopped/Advanced (NDD3) Additional Modifications to Solid Foods: Oral Medication Intake: Crushed with Puree Please contact the pharmacy regarding appropriate crushable or liquid drug formulations that are available whenever modified delivery is recommended. Compensatory Strategies and Precautions to be Taken for Safe Swallow: Sitting Upright (90 deg) No Straw Liquids from Cup Small Bites and Sips Alternate Liquids/Solids Supervision While Eating and Drinking for Safe Swallow: Direct Supervision (1:1) Foods to Avoid: Swallowing Recommended Treatments: Compens. Strategy Educat. Recommendation for Speech: Comment: Patient seen this pm, unfortunately after patient had concluded eating a late lunch, and was markedly fatigued, and occasionally closing eyes. Patient noted to have audible breath sounds/Ronchi. Sitter reported patient ate lunch with no difficulty, but then later stated he was coughing when drinking liquids. RN also later noted patient had vomiting incident last night. ASSOCIATE PROFESSOR OF ANTHROPOLOGY gave patient sip of water by tsp, on initial presentation, patient propelled liquid, then did not initiate swallow until cued, swallowed then began coughing repeatedly. ASSOCIATE PROFESSOR OF ANTHROPOLOGY provided patient with cup with some hand over hand support, patient took sip, had milder delay initiating swallow, Laryngeal elevation mildly reduced, no coughing on cup sip of liquid. Patient then became considerably more lethargic, ASSOCIATE PROFESSOR OF ANTHROPOLOGY delayed proceeding until RN came to administer med in softened ice cream. Patient initially and periodically declined this, but was observed taking 2-3 tsps of this consistency, producing a normal oral phase, mild delay of swallow, no clinical signs of aspiration. No further trials given, as level of fatigue counter indicated further trials. Given patient history, prior history of aspiration pna, vulnerable respiratory system, known impulsivity, recommend downgrade from Regular diet to Chopped/Advanced (NDD3) continue on thin liquids, NO STRAWS, individual sips of liquid, patient will likely need cuing. Given audible airway noise, history of recent vomiting incident, irregular swallow response noted today, would recommend repeat CXR to rule out aspiration event. MD/RD advised by secure text, RN in person. *Half size pieces of saltines with mustard permitted for snack at pt request, 1:1 supervision at all times with PO intake. Frequency/Duration: Daily M-F Date Range for Service Req: Timeline to reassess: Document Clerk Clinican/Clinical Fellow: No Supervisory Statement: I have reviewed and agree with the student/clinical fellow's documentation: N/A Speech Language Pathologist: Courtney Tijerina M.A., CCC-ASSOCIATE PROFESSOR OF ANTHROPOLOGY
--- NOTE | 2024-12-13 19:24 | PC.NURSE ---
Pt lethargic, pale, refused AM meds and breakfast. Rhoncherous lung sounds. Moist cough. Dr Borrego notified. Order for swallow eval. ELDER COUNSELOR recommending chopped diet, thin liquids, no straws. Meds in puree. Pt did take 3 pm meds with ice cream with some coaxing. More awake for breakfast and dinner and ate 75%. HR 110's -120's on tele. Sinus tach with frequent pac's. IV fluids ordered.
[2024-12-13 19:25] VITALS: BP 120/59; PULSE 117; RESP 16; TEMP 36.4; O2SAT 94
[2024-12-14 03:22] VITALS: BP 129/60; PULSE 95; RESP 19; TEMP 36.2; O2SAT 94
[2024-12-14] MEDS: Lactated Ringers 1,000 ML 80 ML IVCONT ×2 (04:56→17:06)
[2024-12-14 05:31] LABS: MANUAL DIFF FLAG NO
[2024-12-14 05:34] LABS: Hematocrit 29.0 % (42.0-52.0); Hemoglobin 9.2 g/dl (14.0-18.0); Imm Gran Abs Auto 0.07 X10*3/uL (0.00-0.03); Imm Gran Pct Auto 0.6 % (0.0-0.4); Lymphocytes Absolute Auto 1.5 X10*3/uL (1.2-4.9); Mean Corpuscular HGB Conc 31.7 g/dl (31.0-36.0); Mean Corpuscular Hemoglobin 28.1 pg (27.0-33.0); Mean Corpuscular Volume 88.7 fL (80.0-98.0); NRBC Abs Auto 0.000 X10*3/uL (0.0-0.012); NRBC Pct Auto 0.0 /100WBC (0.0-0.2); Platelet Count 300 X10*3/uL (160-400); Red Blood Count 3.27 X10*6/uL (4.60-5.80); White Blood Count 11.8 X10*3/uL (4.8-10.8)
[2024-12-14 05:58] LABS: Alanine Aminotransferase 23 U/L (0-40); Albumin Level 3.2 g/dL (3.5-5.0); Alkaline Phosphatase 69 U/L (39-117); Anion Gap 13 (12-20); Aspartate Amino Transferase 27 U/L (5-37); Blood Urea Nitrogen 27 mg/dL (9-16); Calcium 8.3 mg/dL (8.4-10.2); Carbon Dioxide 23 mmol/L (22-29); Chloride 107 mmol/L (96-108); Creatinine Clr Calc Pharmacy 44.5; Estimated Glomerular Filt Rate 47; Magnesium 2.0 mg/dL (1.6-2.6); Potassium 4.9 mmol/L (3.3-5.1); Sodium 138 mmol/L (135-145); Total Protein 5.9 g/dL (6.5-8.0)
[2024-12-14 08:00] VITALS: BP 160/70; PULSE 94; RESP 18; TEMP 36.2; O2SAT 93
--- NOTE | 2024-12-14 08:48 | P.PNIM_ITS ---
Subjective Subjective Date of Service: 12/14/24 Interval History: no complaints, refusing care Physical Exam 2 Exam: Exam: Appearance: no in acute distress. cvs: rrr, [id number]. res: clear to auscultation ,no rhonchii or wheezing abd: no rebound or guarding ,nt, bs present. ext pulses present , no cyanosis. neuro: moves all ext Vital Signs: Vital Signs: Last Vital Signs Temp 97.2 F 12/14/24 08:00 Pulse 94 12/14/24 08:00 Resp 18 12/14/24 08:00 BP 160/70 H 12/14/24 08:00 Pulse Ox 93 12/14/24 08:00 O2 Del Method Room Air 12/14/24 08:00 O2 Flow Rate 1 11/29/24 21:00 FiO2 24 11/29/24 13:31 BMI result Body Mass Index 19.9 Objective Data Active Medications Divalproex Sodium (Divalproex Sodium Sprinkalphonso 125 Mg ) 1,000 mg PO BID [facility] Last Admin: 12/14/24 08:25 Dose: Not Given Documented By: MADDI Non-Admin Reason: Patient Refused Haloperidol (Haloperidol 5 Mg Tablet) 15 mg PO TID [facility] Last Admin: 12/14/24 08:25 Dose: Not Given Documented By: MADDI Non-Admin Reason: Patient Refused Heparin Sodium (Porcine) (Heparin Sodium,Porcine 5,000 Unit/Ml Vial) 5,000 unit SUBCUT Q8H [facility] Last Admin: 12/14/24 08:25 Dose: Not Given Documented By: MADDI Non-Admin Reason: Patient Refused Hydrocortisone (Hydrocortisone 10 Mg Tablet) 15 mg PO BIDWM [facility] Last Admin: 12/14/24 08:24 Dose: Not Given Documented By: MADDI Non-Admin Reason: Patient Refused Levetiracetam (Keppra) 1,000 mg in 100 mls @ 400 mls/hr IV Q12H [facility] Last Infusion: 12/13/24 23:42 Dose: Infused Documented By: ERGINA Lactated Ringer's (Lr) 1,000 mls @ 80 mls/hr IVCONT .[id number] [facility] Last Admin: 12/14/24 04:56 Dose: 80 mls/hr Documented By: REGINA Levothyroxine Sodium (Levothyroxine Sodium 150 Mcg Tablet) 150 mcg PO DAILY@0600 [facility] Last Admin: 12/14/24 06:11 Dose: Not Given Documented By: REGINA Non-Admin Reason: Patient Refused Meropenem (Meropenem 1 Gm Vial) 1 gm IVPUSH Q12H [facility] Last Admin: 12/14/24 02:34 Dose: 1 gm Documented By: REGINA Labs 12/14/24 05:26 12/14/24 05:26 Labs: Laboratory Results - last 24 hr 12/14/24 05:26 MCV 88.7 MCH 28.1 MCHC 31.7 RDW 16.5 H Plt Count 300 MPV 8.7 L Immature Gran % (Auto) 0.6 H Neut % (Auto) 70.3 Lymph % (Auto) 12.8 L [place] % (Auto) 9.8 Eos % (Auto) 5.9 H Baso % (Auto) 0.6 Lymph # (Auto) 1.5 [place] # (Auto) 1.2 Eos # (Auto) 0.7 H Baso # (Auto) 0.1 Abs Immat Gran (auto) 0.07 H Absolute Neuts (auto) 8.3 Absolute Nucleated RBC 0.000 Nucleated RBC % (auto) 0.0 Anion Gap 13 Estim Creat Clear Calc 44.5 Estimated GFR 47 Random Glucose 92 Calcium 8.3 L Phosphorus 3.5 Magnesium 2.0 Total Bilirubin 0.3 Direct Bilirubin 0.1 AST 27 ALT 23 Alkaline Phosphatase 69 Total Protein 5.9 L Albumin 3.2 L TSH 10.79 H Microbiology Microbiology Results: Microbiology 12/12/24 16:10 Blood Culture - Preliminary Blood - Venous No growth after 24 hours. 12/12/24 16:10 Blood Culture - Preliminary Blood - Venous No growth after 24 hours. Assessment and Plan (1) UTI (urinary tract infection) due to urinary indwelling Heaton catheter: Status: Acute (2) Seizure: Status: Acute Plan 64M PMH copd, htn, adrenal insufficiency, schizoaffective disorder presented from [facility] 11[facility]/24 with ams, severe hypoxia, septic shock from uti and aspiratoin pneumonia, was admitted to ICU, intubated, on pressors. Patient was extubated on 11/29/2024 and downgraded to medical floor on 11/30/2024- Hospital course significant for intermittent agitation and refusal of care-went to icu on 12/08 after presumed seizure, hypotension, lactic acidosis-transferred back from ICU 12/10/24. discharge planned 12/12/24 but cancelled after another hypotensive/febrile episode acute metabolic encephalopathy, acute hypoxic respiratory failure due to aspiration pneumonia and urinary tract infection septic shock resolved (in icu), not hypoxic partially treated for ESBL UTI, now with recurrent fever, leukocytosis and hypotension - restarted meropenem, cultures negative, follow up ID Incidental finding of dilated appendix - was seen by surgery felt this is benign, has 1 episode of vomiting ,no other symptoms -as per surgery if persistent vomiting then will need to repear abd imaging. Incidental finding of bilateral hydroureter without obstruction - seen by Urology recommended conservative management seizure rebekah cochran history of adrenal insufficiency Continue steroids. Acute kidney injury on CKD III Creatinine back to baseline 1.5 Schizoaffective disorder Continue lorazepam, Haldol, Depakote, Cogentin. Hypothyroid Levothyroxine DVT prophylaxis with heparin subQ Full code reason for continued hospitalization:treating sepsis with mdr organism Quality Stroke Does the patient have a stroke diagnosis?: No VTE Prior VTE?: No VTE Risk Level:: Medical - low VTE Device Contraindication: N/A - Device Ordered VTE Drug Contraindication: N/A - Med Ordered
[2024-12-14 11:41] LABS: Free T4 (Free Thyroxine) 0.78 ng/dL (0.71-1.85)
[2024-12-14] MEDS: levETIRAcetam in NaCl (iso-os) 1,000 MG/100 ML PIGGYBACK 400 MG IV ×2 (11:46→23:48)
[2024-12-14 16:00] VITALS: BP 113/59; PULSE 76; RESP 18; TEMP 36.4; O2SAT 93
[2024-12-14 19:50] VITALS: BP 114/56; PULSE 105; RESP 16; TEMP 37.1; O2SAT 94
[2024-12-15 04:00] VITALS: BP 121/58; PULSE 67; RESP 16; TEMP 36.4; O2SAT 94
[2024-12-15 06:00] VITALS: BMI 19.9
[2024-12-15 08:00] VITALS: BP 123/59; PULSE 80; RESP 18; TEMP 36.2; O2SAT 96
--- NOTE | 2024-12-15 08:57 | P.PNIM_ITS ---
Subjective Subjective Date of Service: 12/15/24 Interval History: no complaints, refusing care Physical Exam 2 Exam: Exam: Appearance: no in acute distress. cvs: rrr, [id number]. res: clear to auscultation ,no rhonchii or wheezing abd: no rebound or guarding ,nt, bs present. ext pulses present , no cyanosis. neuro: moves all ext Vital Signs: Vital Signs: Last Vital Signs Temp 97.2 F 12/15/24 08:00 Pulse 80 12/15/24 08:00 Resp 18 12/15/24 08:00 BP 123/59 L 12/15/24 08:00 Pulse Ox 96 12/15/24 08:00 O2 Del Method Room Air 12/15/24 08:00 O2 Flow Rate 1 11/29/24 21:00 FiO2 24 11/29/24 13:31 BMI result Body Mass Index 19.9 Objective Data Active Medications Divalproex Sodium (Divalproex Sodium Sprinkles 125 Mg ) 1,000 mg PO BID [facility] Last Admin: 12/15/24 08:45 Dose: Not Given Documented By: MADDI Non-Admin Reason: Patient Refused Haloperidol (Haloperidol 5 Mg Tablet) 15 mg PO TID [facility] Last Admin: 12/15/24 08:45 Dose: Not Given Documented By: MADDI Non-Admin Reason: Patient Refused Heparin Sodium (Porcine) (Heparin Sodium,Porcine 5,000 Unit/Ml Vial) 5,000 unit SUBCUT Q8H [facility] Last Admin: 12/15/24 08:45 Dose: Not Given Documented By: MADDI Non-Admin Reason: Patient Refused Hydrocortisone (Hydrocortisone 10 Mg Tablet) 15 mg PO BIDWM [facility] Last Admin: 12/15/24 08:44 Dose: Not Given Documented By: MADDI Non-Admin Reason: Patient Refused Levetiracetam (Keppra) 1,000 mg in 100 mls @ 400 mls/hr IV Q12H [facility] Last Infusion: 12/15/24 00:06 Dose: Infused Documented By: REGINA Lactated Ringer's (Lr) 1,000 mls @ 80 mls/hr IVCONT .[id number] [facility] Last Infusion: 12/14/24 22:30 Dose: 80 mls/hr Documented By: REGINA Levothyroxine Sodium (Levothyroxine Sodium 150 Mcg Tablet) 150 mcg PO DAILY@0600 [facility] Last Admin: 12/15/24 05:40 Dose: Not Given Documented By: REGINA Non-Admin Reason: Patient Refused Meropenem (Meropenem 1 Gm Vial) 1 gm IVPUSH Q12H [facility] Last Admin: 12/15/24 02:52 Dose: 1 gm Documented By: REGINA Labs 12/14/24 05:26 12/14/24 05:26 Labs: Laboratory Results - last 24 hr 12/14/24 05:26 Free T4 0.78 Microbiology Microbiology Results: Microbiology 12/12/24 16:10 Blood Culture - Preliminary Blood - Venous No growth after 48 hours. 12/12/24 16:10 Blood Culture - Preliminary Blood - Venous No growth after 48 hours. Assessment and Plan (1) UTI (urinary tract infection) due to urinary indwelling Heaton catheter: Status: Acute (2) Seizure: Status: Acute Plan 64M PMH copd, htn, adrenal insufficiency, schizoaffective disorder presented [facility] 11/[facility]/24 with ams, severe hypoxia, septic shock from uti and aspiratoin pneumonia, was admitted to ICU, intubated, on pressors. Patient was extubated on 11/29/2024 and downgraded to medical floor on 11/30/2024- Hospital course significant for intermittent agitation and refusal of care-went to icu on 12/08 after presumed seizure, hypotension, lactic acidosis-transferred back from ICU 12/10/24. discharge planned 12/12/24 but cancelled after another hypotensive/febrile episode acute metabolic encephalopathy, acute hypoxic respiratory failure due to aspiration pneumonia and urinary tract infection septic shock resolved (in icu), not hypoxic partially treated for ESBL UTI, now with recurrent fever, leukocytosis and hypotension - restarted meropenem 12/12/24, cultures negative, follow up ID, improving Incidental finding of dilated appendix - was seen by surgery felt this is benign, has 1 episode of vomiting ,no other symptoms -as per surgery if persistent vomiting then will need to repear abd imaging. Incidental finding of bilateral hydroureter without obstruction - seen by Urology recommended conservative management seizure depakote, keppra history of adrenal insufficiency Continue steroids. Acute kidney injury on CKD III Creatinine back to baseline 1.5 Schizoaffective disorder Continue lorazepam, Haldol, Depakote, Cogentin. Hypothyroid initially elevated tsh normal t4, likely due to intermittent compliance, tsh improving, can follow up in severeal weeeks, keep same dose for now DVT prophylaxis with heparin subQ Full code reason for continued hospitalization:treating sepsis with mdr organism Quality Stroke Does the patient have a stroke diagnosis?: No VTE Prior VTE?: No VTE Risk Level:: Medical - low VTE Device Contraindication: N/A - Device Ordered VTE Drug Contraindication: N/A - Med Ordered
[2024-12-15] MEDS: Lactated Ringers 1,000 ML 80 ML IVCONT (10:57)
[2024-12-15] MEDS: levETIRAcetam in NaCl (iso-os) 1,000 MG/100 ML PIGGYBACK 400 MG IV ×2 (12:15→23:18)
[2024-12-15 16:00] VITALS: BP 130/97; PULSE 80; RESP 18; TEMP 36.3; O2SAT 100
--- NOTE | 2024-12-15 21:00 | PC.NURSE ---
This RN resumed care at 0, upon entry of the room sitter at the the bedside, camera in place for safety. Pt sleeping at this time, resting comfortably, in no apparent distress. 2129: pt refused to take PO meds. Heaton in place, patent and draining, seizure pads in place on rails, bed alarm on, call multani within reach.
--- NOTE | 2024-12-15 21:00 | PC.NURSE ---
Pt refused PO meds.
[2024-12-16 03:30] VITALS: BP 129/55; PULSE 83; RESP 16; TEMP 36; O2SAT 93
[2024-12-16 05:52] VITALS: BMI 21.3
[2024-12-16 08:00] VITALS: BP 141/61; PULSE 85; RESP 18; TEMP 36.2; O2SAT 97
--- NOTE | 2024-12-16 08:49 | HO.PM.IMPN ---
Subjective Subjective Date of Service: 12/16/24 Interval History: no complaints, refusing care Physical Exam Exam: Exam: Appearance: no in acute distress. cvs: rrr, [id number]. res: clear to auscultation ,no rhonchii or wheezing abd: no rebound or guarding ,nt, bs present. ext pulses present , no cyanosis. neuro: moves all ext Vital Signs: Vital Signs: Last Vital Signs Temp 97.1 F 12/16/24 08:00 Pulse 85 12/16/24 08:00 Resp 18 12/16/24 08:00 BP 141/61 H 12/16/24 08:00 Pulse Ox 97 12/16/24 08:00 O2 Del Method Room Air 12/16/24 08:00 O2 Flow Rate 1 11/29/24 21:00 FiO2 24 11/29/24 13:31 BMI result Body Mass Index 21.3 Objective Data Active Medications Divalproex Sodium (Divalproex Sodium Sprinkles 125 Mg ) 1,000 mg PO BID [facility] Last Admin: 12/16/24 07:43 Dose: Not Given Documented By: NISHI Non-Admin Reason: Patient Refused Haloperidol (Haloperidol 5 Mg Tablet) 15 mg PO TID [facility] Last Admin: 12/16/24 07:43 Dose: Not Given Documented By: NISHI Non-Admin Reason: Patient Refused Heparin Sodium (Porcine) (Heparin Sodium,Porcine 5,000 Unit/Ml Vial) 5,000 unit SUBCUT Q8H [facility] Last Admin: 12/16/24 07:43 Dose: Not Given Documented By: NISHI Non-Admin Reason: Patient Refused Hydrocortisone (Hydrocortisone 10 Mg Tablet) 15 mg PO BIDWM [facility] Last Admin: 12/16/24 07:42 Dose: Not Given Documented By: NISHI Non-Admin Reason: Patient Refused Levetiracetam (Keppra) 1,000 mg in 100 mls @ 400 mls/hr IV Q12H [facility] Last Infusion: 12/15/24 23:33 Dose: Infused Documented By: JATIN Levothyroxine Sodium (Levothyroxine Sodium 150 Mcg Tablet) 150 mcg PO DAILY@0600 [facility] Last Admin: 12/16/24 05:22 Dose: Not Given Documented By: HO.ORLANDV Non-Admin Reason: Patient Refused Meropenem (Meropenem 1 Gm Vial) 1 gm IVPUSH Q12H [facility] Last Admin: 12/16/24 02:47 Dose: 1 gm Documented By: JATIN Labs 12/14/24 05:26 12/14/24 05:26 Assessment and Plan (1) UTI (urinary tract infection) due to urinary indwelling Heaton catheter: Status: Acute (2) Seizure: Status: Acute Plan 64M PMH copd, htn, adrenal insufficiency, schizoaffective disorder [facility]24 with ams, severe hypoxia, septic shock from uti and aspiratoin pneumonia, was admitted to ICU, intubated, on pressors. Patient was extubated on 11/29/2024 and downgraded to medical floor on 11/30/2024- Hospital course significant for intermittent agitation and refusal of care-went to icu on 12/08 after presumed seizure, hypotension, lactic acidosis-transferred back from ICU 12/10/24. discharge planned 12/12/24 but cancelled after another hypotensive/febrile episode acute metabolic encephalopathy, acute hypoxic respiratory failure due to aspiration pneumonia and urinary tract infection septic shock resolved (in icu), not hypoxic partially treated for ESBL UTI, now with recurrent fever, leukocytosis and hypotension - restarted meropenem 12/12/24 (day 5), cultures negative, follow up ID, improving, will need picc/midline for 10-14 days ertapenem, end Incidental finding of dilated appendix - was seen by surgery felt this is benign Incidental finding of bilateral hydroureter without obstruction - seen by Urology recommended conservative management seizure depakote, marcellepp history of adrenal insufficiency Continue steroids. Acute kidney injury on CKD III Creatinine back to baseline 1.5 Schizoaffective disorder Continue lorazepam, Haldol, Depakote, Cogentin. Hypothyroid initially elevated tsh normal t4, likely due to intermittent compliance, tsh improving, can follow up in severeal weeeks, keep same dose for now DVT prophylaxis with heparin subQ Full code reason for continued hospitalization:treating sepsis with mdr organism Quality Stroke Does the patient have a stroke diagnosis?: No VTE Prior VTE?: No VTE Risk Level:: Medical - low VTE Device Contraindication: N/A - Device Ordered VTE Drug Contraindication: N/A - Med Ordered
[2024-12-16] MEDS: levETIRAcetam in NaCl (iso-os) 1,000 MG/100 ML PIGGYBACK 400 MG IV (12:29)
--- NOTE | 2024-12-16 15:23 | MHC.SLORD ---
Speech Language Pathology Order Status: Pt PO tolerance remains stable, no dysphagia tx 12/16. RN consulted, no concerns reported.
--- NOTE | 2024-12-16 15:36 | MHC.CM.PN ---
PER MD ROUNDS, PT WILL LIKELY BE HERE FOR 5-6 DAYS FOR IV ABX [facility] HAS INDICATED THEY WOULD NOT BE ABLE TO TAKE HIM BACK WITH A PICC LINE DUE TO CONCERN FOR HIM REMOVING IT HIMSELF DCP: RETURN TO [facility]
[2024-12-16 15:57] VITALS: BP 150/78; PULSE 87; RESP 18; TEMP 36.7; O2SAT 97
[2024-12-16 19:02] VITALS: BP 124/58; PULSE 81; RESP 18; TEMP 36.5; O2SAT 94
[2024-12-17] MEDS: levETIRAcetam in NaCl (iso-os) 1,000 MG/100 ML PIGGYBACK 400 MG IV ×3 (00:06→23:38)
[2024-12-17 03:08] VITALS: BP 110/59; PULSE 76; RESP 16; TEMP 36.3; O2SAT 94
[2024-12-17 06:00] VITALS: BMI 21.0
[2024-12-17 07:59] VITALS: BP 121/56; PULSE 80; RESP 16; TEMP 36; O2SAT 96
--- NOTE | 2024-12-17 08:09 | P.PNIM_ITS ---
Subjective Subjective Date of Service: 12/17/24 Interval History: no complaints, refusing care Physical Exam 2 Exam: Exam: Appearance: no in acute distress. cvs: [id number], [id number]. res: clear to auscultation ,no rhonchii or wheezing abd: no rebound or guarding ,nt, bs present. ext pulses present , no cyanosis. neuro: moves all ext Vital Signs: Vital Signs: Last Vital Signs Temp 96.8 F 12/17/24 07:59 Pulse 80 12/17/24 07:59 Resp 16 12/17/24 07:59 BP 121/56 L 12/17/24 07:59 Pulse Ox 96 12/17/24 07:59 O2 Del Method Room Air 12/17/24 07:59 O2 Flow Rate 1 11/29/24 21:00 FiO2 24 11/29/24 13:31 BMI result Body Mass Index 21.0 Objective Data Active Medications Divalproex Sodium (Divalproex Sodium Sprinkles 125 Mg ) 1,000 mg PO BID [facility] Last Admin: 12/17/24 07:48 Dose: Not Given Documented By: NIHSI Non-Admin Reason: Patient Refused Haloperidol (Haloperidol 5 Mg Tablet) 15 mg PO TID [facility] Last Admin: 12/17/24 07:48 Dose: Not Given Documented By: NISHI Non-Admin Reason: Patient Refused Heparin Sodium (Porcine) (Heparin Sodium,Porcine 5,000 Unit/Ml Vial) 5,000 unit SUBCUT Q8H [facility] Last Admin: 12/17/24 07:48 Dose: Not Given Documented By: NISHI Non-Admin Reason: Patient Refused Hydrocortisone (Hydrocortisone 10 Mg Tablet) 15 mg PO BIDWM [facility] Last Admin: 12/17/24 07:48 Dose: Not Given Documented By: NISHI Non-Admin Reason: Patient Refused Levetiracetam (Keppra) 1,000 mg in 100 mls @ 400 mls/hr IV Q12H [facility] Last Infusion: 12/17/24 00:28 Dose: Infused Documented By: JATIN Levothyroxine Sodium (Levothyroxine Sodium 150 Mcg Tablet) 150 mcg PO DAILY@0600 [facility] Last Admin: 12/17/24 05:17 Dose: Not Given Documented By: JATIN Non-Admin Reason: Patient Refused Meropenem (Meropenem 1 Gm Vial) 1 gm IVPUSH Q12H [facility] Last Admin: 12/17/24 03:34 Dose: 1 gm Documented By: JATIN Labs 12/14/24 05:26 12/14/24 05:26 Assessment and Plan (1) UTI (urinary tract infection) due to urinary indwelling Heaton catheter: Status: Acute (2) Seizure: Status: Acute Plan 64M PMH copd, htn, adrenal insufficiency, schizoaffective disorder [facility]s, severe hypoxia, septic shock from uti and aspiratoin pneumonia, was admitted to ICU, intubated, on pressors. Patient was extubated on 11/29/2024 and downgraded to medical floor on 11/30/2024- Hospital course significant for intermittent agitation and refusal of care-went to icu on 12/08 after presumed seizure, hypotension, lactic acidosis-transferred back from ICU 12/10/24. discharge planned 12/12/24 but cancelled after another hypotensive/febrile episode acute metabolic encephalopathy, acute hypoxic respiratory failure due to aspiration pneumonia and urinary tract infection septic shock resolved (in icu), not hypoxic partially treated for ESBL UTI, now with recurrent fever, leukocytosis and hypotension - restarted meropenem 12/12/24 (day 6), cultures negative, improving, unable to do outpatient iv abx, so will keep inpatient until 12/21/24 Incidental finding of dilated appendix - was seen by surgery felt this is benign Incidental finding of bilateral hydroureter without obstruction - seen by Urology recommended conservative management seizure depakote - has been refusing, using iv keppra history of adrenal insufficiency Continue steroids. Acute kidney injury on CKD III Creatinine back to baseline 1.5 Schizoaffective disorder Continue lorazepam, Haldol, Depakote, Cogentin. Hypothyroid initially elevated tsh normal t4, likely due to intermittent compliance, tsh improving, can follow up in several weeeks, keep same dose for now DVT prophylaxis with heparin subQ Full code reason for continued hospitalization:treating sepsis with mdr organism, end date 12/21/24 - unable to complete outpatient Quality Stroke Does the patient have a stroke diagnosis?: No VTE Prior VTE?: No VTE Risk Level:: Medical - low VTE Device Contraindication: N/A - Device Ordered VTE Drug Contraindication: N/A - Med Ordered
--- NOTE | 2024-12-17 10:51 | MHC.SL.SWA ---
Speech Pathologist Impression: Risk of Aspiration Due to: Dysphasia Diet Status: recommend downgrade to CHOPPED/ADVANCED (NDD3) with THIN liquids, pills whole or crushed in puree. Liquid Consistency and Strategies for Safe Swallow: Liquid Intake Recommendation: Thin Liquid Intake Strategies: Small Sips No Straws Solid Food Consistency: Dietary Recommendations: Chopped/Advanced (NDD3) Additional Modifications to Solid Foods: Oral Medication Intake: Crushed with Puree Please contact the pharmacy regarding appropriate crushable or liquid drug formulations that are available whenever modified delivery is recommended. Compensatory Strategies and Precautions to be Taken for Safe Swallow: Sitting Upright (90 deg) No Straw Liquids from Cup Small Bites and Sips Alternate Liquids/Solids Supervision While Eating and Drinking for Safe Swallow: Direct Supervision (1:1) Foods to Avoid: Swallowing Recommended Treatments: Compens. Strategy Educat. Recommendation for Speech: Comment: Patient seen at breakfast this morning, with sitter present and assisting patient with meal. Patient ate eggs from tray, able to scoop and feed self, producing a munching pattern, and requiring some cues not to speak while eating. However swallow was timely, patient managing this texture well. Patient took sips of coffee from cup, taking one sip at time with good control, no clinical signs of aspiration. Patient presents with improved/clearer breathing, upper respiratory sounds noted on 12/13. Recommend continue on current diet of CHOPPED/ADVANCED (NDD3) with thin liquids, pills crushed in puree, 1-1 supervision. Frequency/Duration: Daily M-F Date Range for Service Req: Timeline to reassess: Machine Crater Clinican/Clinical Fellow: No Supervisory Statement: I have reviewed and agree with the student/clinical fellow's documentation: N/A Speech Language Pathologist: Courtney Tijerina M.A., CCC-BALLPOINT PEN CARTRIDGE TESTER
[2024-12-17 15:22] VITALS: BP 135/62; PULSE 80; RESP 18; TEMP 36.1; O2SAT 97
[2024-12-17 19:35] VITALS: BP 142/71; PULSE 82; RESP 18; TEMP 36.1; O2SAT 96
[2024-12-18 04:00] VITALS: BP 138/57; PULSE 72; RESP 14; TEMP 36.1; O2SAT 95
[2024-12-18 05:57] LABS: Hematocrit 28.8 % (42.0-52.0); Hemoglobin 9.4 g/dl (14.0-18.0); Mean Corpuscular HGB Conc 32.6 g/dl (31.0-36.0); Mean Corpuscular Hemoglobin 27.7 pg (27.0-33.0); Mean Corpuscular Volume 85.0 fL (80.0-98.0); NRBC Abs Auto 0.000 X10*3/uL (0.0-0.012); NRBC Pct Auto 0.0 /100WBC (0.0-0.2); Platelet Count 298 X10*3/uL (160-400); Red Blood Count 3.39 X10*6/uL (4.60-5.80); White Blood Count 8.0 X10*3/uL (4.8-10.8)
[2024-12-18 06:00] VITALS: BMI 21.5
[2024-12-18 06:11] LABS: Anion Gap 13 (12-20); Blood Urea Nitrogen 18 mg/dL (9-16); Calcium 8.6 mg/dL (8.4-10.2); Carbon Dioxide 23 mmol/L (22-29); Chloride 104 mmol/L (96-108); Creatinine Clr Calc Pharmacy 56.3; Estimated Glomerular Filt Rate 57; Potassium 4.4 mmol/L (3.3-5.1); Sodium 136 mmol/L (135-145)
[2024-12-18 10:00] VITALS: BP 130/59; PULSE 77; RESP 16; TEMP 36.2; O2SAT 100
[2024-12-18] MEDS: levETIRAcetam in NaCl (iso-os) 1,000 MG/100 ML PIGGYBACK 400 MG IV ×2 (11:30→23:42)
--- NOTE | 2024-12-18 14:07 | MHC.CM.PN ---
EMR REVIEWED AND PER MD ROUNDS, PT WILL COMPLETE HIS COURSE OF IV ABT HERE (END DATE 12/21) [facility] UNABLE TO ACCEPT BACK WITH A LINE DUE TO PT SELF REMOVING. [facility] UPDATED WITH CLINICAL INFORMATION VIA [facility]. CM CONTINUES TO FOLLOW.
--- NOTE | 2024-12-18 14:14 | P.PNIM_ITS ---
Subjective Subjective Date of Service: 12/18/24 Interval History: No acute issues overnight. Continues to tolerate IV therapies Review of Systems Unable to obtain secondary to confusion Physical Exam 2 Vital Signs: Vital Signs: Last Vital Signs Temp 97.1 F 12/18/24 10:00 Pulse 77 12/18/24 10:00 Resp 16 12/18/24 10:00 BP 130/59 L 12/18/24 10:00 Pulse Ox 100 12/18/24 10:00 O2 Del Method Room Air 12/18/24 10:00 O2 Flow Rate 1 11/29/24 21:00 FiO2 24 11/29/24 13:31 BMI result Body Mass Index 21.5 Const: Other: Awake alert confused Resp: Other: Clear to auscultation bilaterally no rales rhonchi or wheezes Cardio: Other: No S4; positive S1-S2; no S3 murmurs rubs or gallops GI: Other: Soft nontender nondistended normoactive bowel sounds Extrem: Other: No edema bilaterally Objective Data Active Medications Divalproex Sodium (Divalproex Sodium Sprinkalphonso 125 Mg ) 1,000 mg PO BID [facility] Last Admin: 12/18/24 07:27 Dose: Not Given Documented By: NISHI Non-Admin Reason: Patient Refused Haloperidol (Haloperidol 5 Mg Tablet) 15 mg PO TID [facility] Last Admin: 12/18/24 13:31 Dose: Not Given Documented By: NISHI Non-Admin Reason: Patient Refused Heparin Sodium (Porcine) (Heparin Sodium,Porcine 5,000 Unit/Ml Vial) 5,000 unit SUBCUT Q8H [facility] Last Admin: 12/18/24 07:27 Dose: Not Given Documented By: NISHI Non-Admin Reason: Patient Refused Hydrocortisone (Hydrocortisone 10 Mg Tablet) 15 mg PO BIDWM [facility] Last Admin: 12/18/24 07:27 Dose: Not Given Documented By: NISHI Non-Admin Reason: Patient Refused Levetiracetam (Keppra) 1,000 mg in 100 mls @ 400 mls/hr IV Q12H [facility] Last Infusion: 12/18/24 11:51 Dose: Infused Documented By: NISHI Levothyroxine Sodium (Levothyroxine Sodium 150 Mcg Tablet) 150 mcg PO DAILY@0600 [facility] Last Admin: 12/18/24 05:23 Dose: Not Given Documented By: ABBEY Non-Admin Reason: Patient Refused Meropenem (Meropenem 1 Gm Vial) 1 gm IVPUSH Q12H [facility] Last Admin: 12/18/24 02:54 Dose: 1 gm Documented By: ABBEY Labs 12/18/24 05:08 12/18/24 05:08 Labs: Laboratory Results - last 24 hr 12/18/24 05:08 MCV 85.0 MCH 27.7 MCHC 32.6 RDW 15.6 Plt Count 298 MPV 8.8 L Absolute Nucleated RBC 0.000 Nucleated RBC % (auto) 0.0 Anion Gap 13 Estim Creat Clear Calc 56.3 Estimated GFR 57 Random Glucose 77 Calcium 8.6 Microbiology Microbiology Results: Microbiology 12/12/24 16:10 Blood Culture - Final Blood - Venous No growth after 5 days. 12/12/24 16:10 Blood Culture - Final Blood - Venous No growth after 5 days. Assessment and Plan (1) Acute encephalopathy: Status: Acute (2) Complicated urinary tract infection: Status: Acute (3) Schizophrenia: Status: Acute Plan 64M PMH copd, htn, adrenal insufficiency, schizoaffective disorder [facility]s, severe hypoxia, septic shock from uti and aspiratoin pneumonia, was admitted to ICU, intubated, on pressors. Patient was extubated on 11/29/2024 and downgraded to medical floor on 11/30/2024- Hospital course significant for intermittent agitation and refusal of care-went to icu on 12/08 after presumed seizure, hypotension, lactic acidosis-transferred back from ICU 12/10/24. discharge planned 12/12/24 but cancelled after another hypotensive/febrile episode 1.Acute metabolic encephalopathy, acute hypoxic respiratory failure due to aspiration pneumonia/urinary tract infection -ESBL UTI... meropenem 12/12/24 (7)...LD 12/21/24 -complete IV therapy inpatient 2.Seizure -IV Keppra as refusing p.o. 3.Adrenal insufficiency -stable and well compensated -continue steroids. 4.Acute kidney injury on CKD III -resolved. . . Baseline -follow renals/divalents 5.Schizoaffective disorder -continue lorazepam, Haldol, Depakote, Cogentin. Heparin subQ Full code reason for continued hospitalization:treating sepsis with mdr organism, end date 12/21/24 - unable to complete outpatient Quality Stroke Does the patient have a stroke diagnosis?: No VTE Prior VTE?: No VTE Risk Level:: Medical - low VTE Device Contraindication: N/A - Device Ordered VTE Drug Contraindication: N/A - Med Ordered
--- NOTE | 2024-12-18 15:12 | MHC.SL.SWA ---
Speech Pathologist Impression: Oropharyngeal swallow WFL, missing dentition Risk of Aspiration Due to: Impulsivity Missing dentition Dysphasia Diet Status: Recommend CHOPPED/ADVANCED (NDD3) with THIN liquids, pills whole or crushed in puree. Liquid Consistency and Strategies for Safe Swallow: Liquid Intake Recommendation: Thin Liquid Intake Strategies: Small Sips No Straws Solid Food Consistency: Dietary Recommendations: Chopped/Advanced (NDD3) Additional Modifications to Solid Foods: Oral Medication Intake: Crushed with Puree Please contact the pharmacy regarding appropriate crushable or liquid drug formulations that are available whenever modified delivery is recommended. Compensatory Strategies and Precautions to be Taken for Safe Swallow: Sitting Upright (90 deg) No Straw Liquids from Cup Small Bites and Sips Alternate Liquids/Solids Supervision While Eating and Drinking for Safe Swallow: Direct Supervision (1:1) Foods to Avoid: Swallowing Recommended Treatments: Compens. Strategy Educat. Recommendation for Speech: Speech Therapy through [facility] Comment: Pt seen for dysphagia treatment today, RN consulted, no concerns reported. Pt adamantly refused liquids but wanted to eat saltines with mustard. Pt fed himself with good pacing, but was observed taking slightly large bites initially. Pt tolerated approximately 5 and 1/2 saltines with adequate oropharyngeal coordination, no overt s/s of aspiration. LABORATORY COORDINATOR and sitter encouraged pt to alternate consistencies with liquid but pt again declined liquids. Recc diet as ordered, LABORATORY COORDINATOR to follow as indicated. Frequency/Duration: Daily M-F Date Range for Service Req: Timeline to reassess: Biztalk Software Developer Clinican/Clinical Fellow: No Supervisory Statement: I have reviewed and agree with the student/clinical fellow's documentation: N/A Speech Language Pathologist: Veronika Rob M.S., CCC-LABORATORY COORDINATOR
[2024-12-18 15:35] VITALS: BP 102/55; PULSE 81; RESP 18; TEMP 36.1; O2SAT 99
[2024-12-18 19:23] VITALS: BP 106/58; PULSE 95; RESP 18; TEMP 36; O2SAT 97
[2024-12-19 03:09] VITALS: BP 112/66; PULSE 80; RESP 18; TEMP 36.4; O2SAT 95
[2024-12-19] MEDS: levETIRAcetam in NaCl (iso-os) 1,000 MG/100 ML PIGGYBACK 400 MG IV ×2 (11:18→23:29)
--- NOTE | 2024-12-19 12:54 | HO.PM.IMPN ---
Subjective Subjective Date of Service: 12/19/24 Interval History: Confused.. No acute issues overnight Review of Systems Unable to obtain secondary to confusion Physical Exam Vital Signs: Vital Signs: Last Vital Signs Temp 97.6 F 12/19/24 03:09 Pulse 80 12/19/24 03:09 Resp 18 12/19/24 03:09 BP 112/66 12/19/24 03:09 Pulse Ox 95 12/19/24 03:09 O2 Del Method Room Air 12/18/24 19:23 O2 Flow Rate 1 11/29/24 21:00 FiO2 24 11/29/24 13:31 BMI result Body Mass Index 21.5 Const: Other: Awake alert confused Resp: Other: Clear to auscultation bilaterally no rales rhonchi or wheezes Cardio: Other: No S4; positive S1-S2; no S3 murmurs rubs or gallops GI: Other: Soft nontender nondistended normoactive bowel sounds Extrem: Other: No edema bilaterally Objective Data Active Medications Divalproex Sodium (Divalproex Sodium Sprinkalphonso 125 Mg ) 1,000 mg PO BID [facility] Last Admin: 12/19/24 08:10 Dose: Not Given Documented By: RINA Non-Admin Reason: Patient Refused Haloperidol (Haloperidol 5 Mg Tablet) 15 mg PO TID [facility] Last Admin: 12/19/24 08:10 Dose: Not Given Documented By: RINA Non-Admin Reason: Patient Refused Heparin Sodium (Porcine) (Heparin Sodium,Porcine 5,000 Unit/Ml Vial) 5,000 unit SUBCUT Q8H [facility] Last Admin: 12/19/24 08:10 Dose: Not Given Documented By: RINA Non-Admin Reason: Patient Refused Hydrocortisone (Hydrocortisone 10 Mg Tablet) 15 mg PO BIDWM [facility] Last Admin: 12/19/24 08:10 Dose: Not Given Documented By: RINA Non-Admin Reason: Patient Refused Levetiracetam (Keppra) 1,000 mg in 100 mls @ 400 mls/hr IV Q12H [facility] Last Infusion: 12/19/24 11:44 Dose: Infused Documented By: RINA Levothyroxine Sodium (Levothyroxine Sodium 150 Mcg Tablet) 150 mcg PO DAILY@0600 [facility] Last Admin: 12/19/24 07:03 Dose: Not Given Documented By: RINA Non-Admin Reason: Patient Refused Meropenem (Meropenem 1 Gm Vial) 1 gm IVPUSH Q12H [facility] Last Admin: 12/19/24 02:32 Dose: 1 gm Documented By: REGINA Labs 12/18/24 05:08 12/18/24 05:08 Assessment and Plan (1) Acute encephalopathy: Status: Acute (2) UTI (urinary tract infection) due to urinary indwelling Heaton catheter: Status: Acute Plan 64M PMH copd, htn, adrenal insufficiency, schizoaffective disorder [facility] with [facility]s, severe hypoxia, septic shock from uti and aspiratoin pneumonia, was admitted to ICU, intubated, on pressors. Patient was extubated on 11/29/2024 and downgraded to medical floor on 11/30/2024- Hospital course significant for intermittent agitation and refusal of care-went to icu on 12/08 after presumed seizure, hypotension, lactic acidosis-transferred back from ICU 12/10/24. discharge planned 12/12/24 but cancelled after another hypotensive/febrile episode 1.Acute metabolic encephalopathy, acute hypoxic respiratory failure due to aspiration pneumonia/urinary tract infection -ESBL UTI... meropenem 12/12/24 (7)...LD 12/21/24 -complete IV therapy inpatient 2.Seizure -IV Keppra as refusing p.o. 3.Adrenal insufficiency -stable and well compensated -continue steroids. 4.Acute kidney injury on CKD III -resolved. . . Baseline -follow renals/divalents 5.Schizoaffective disorder -continue lorazepam, Haldol, Depakote, Cogentin. Heparin subQ Full code reason for continued hospitalization:treating sepsis with mdr organism, end date 12/21/24 - unable to complete outpatient Quality Stroke Does the patient have a stroke diagnosis?: No VTE Prior VTE?: No VTE Risk Level:: Medical - low VTE Device Contraindication: N/A - Device Ordered VTE Drug Contraindication: N/A - Med Ordered
--- NOTE | 2024-12-19 15:33 | MHC.SLORD ---
Speech Language Pathology Order Status: Attempted to see patient at lunch today, patient had refused meal, was mildly agitated, demanding store bought ice tea. Despite refusal, patient tolerating diet, pending d/c following completion of IV treatment.
[2024-12-19 15:47] VITALS: BP 120/60; PULSE 83; RESP 18; TEMP 36.3; O2SAT 98
[2024-12-19 20:00] VITALS: BP 116/61; PULSE 76; RESP 18; TEMP 36.2; O2SAT 96
[2024-12-20 03:39] VITALS: BP 100/56; PULSE 77; RESP 18; TEMP 36.2; O2SAT 97
[2024-12-20 07:04] VITALS: BP 123/68; PULSE 75; RESP 20; TEMP 36.3; O2SAT 96
--- NOTE | 2024-12-20 10:59 | MHC.CM.PN ---
PER MD ROUNDS, PT WILL COMPLETE HIS IV ABX TOMORROW AND BE READY TO DC [facility] UPDATED, CM WILL PREBOOK FOR 1200 HOURS TOMORROW WITH [facility]
[2024-12-20] MEDS: levETIRAcetam in NaCl (iso-os) 1,000 MG/100 ML PIGGYBACK 400 MG IV ×2 (11:20→23:23)
--- NOTE | 2024-12-20 11:42 | MHC.SL.SWA ---
Speech Pathologist Impression: Risk of Aspiration, Oropharyngeal Dysphagia Dysphasia Diet Status: Continue CHOPPED/ADVANCED (NDD3) with THIN liquids, pills whole or crushed in puree. Liquid Consistency and Strategies for Safe Swallow: Liquid Intake Recommendation: Thin Liquid Intake Strategies: Small Sips No Straws Solid Food Consistency: Dietary Recommendations: Chopped/Advanced (NDD3) Additional Modifications to Solid Foods: Oral Medication Intake: Crushed with Puree Please contact the pharmacy regarding appropriate crushable or liquid drug formulations that are available whenever modified delivery is recommended. Compensatory Strategies and Precautions to be Taken for Safe Swallow: Sitting Upright (90 deg) No Straw Liquids from Cup Small Bites and Sips Alternate Liquids/Solids Supervision While Eating and Drinking for Safe Swallow: Direct Supervision (1:1) Swallowing Recommended Treatments: Compens. Strategy Educat. Recommendation for Speech: Speech Therapy through [facility] Comment: FOOD PROCESSING SCIENTIST recc NDD3 with thins, supervision, aspiration precautions, meds crushed in liquid or puree. FOOD PROCESSING SCIENTIST will monitor and adjust diet as indicated. *Half size pieces of saltines with mustard permitted for snack at pt request, 1:1 supervision at all times with PO intake. Frequency/Duration: Daily M-F Date Range for Service Req: Timeline to reassess: Counter Server Clinican/Clinical Fellow: No Supervisory Statement: I have reviewed and agree with the student/clinical fellow's documentation: N/A Speech Language Pathologist: Jessie Chiang M.A., CCC-FOOD PROCESSING SCIENTIST
--- NOTE | 2024-12-20 12:43 | HO.PM.IMPN ---
Subjective Subjective Date of Service: 12/20/24 Interval History: Continues to tolerate IV antibiotics. Review of Systems Unable to obtain secondary to confusion Physical Exam Vital Signs: Vital Signs: Last Vital Signs Temp 97.4 F 12/20/24 07:04 Pulse 75 12/20/24 07:04 Resp 20 12/20/24 07:04 BP 123/68 12/20/24 07:04 Pulse Ox 96 12/20/24 07:04 O2 Del Method Room Air 12/20/24 07:04 O2 Flow Rate 1 11/29/24 21:00 FiO2 24 11/29/24 13:31 BMI result Body Mass Index 21.5 Const: Other: Awake alert confused Resp: Other: Clear to auscultation bilaterally no rales rhonchi or wheezes Cardio: Other: No S4; positive S1-S2; no S3 murmurs rubs or gallops GI: Other: Soft nontender nondistended normoactive bowel sounds Extrem: Other: No edema bilaterally Objective Data Active Medications Divalproex Sodium (Divalproex Sodium Sprinkalphonso 125 Mg ) 1,000 mg PO BID [facility] Last Admin: 12/20/24 07:28 Dose: Not Given Documented By: RINA Non-Admin Reason: Patient Refused Haloperidol (Haloperidol 5 Mg Tablet) 15 mg PO TID [facility] Last Admin: 12/20/24 07:28 Dose: Not Given Documented By: RINA Non-Admin Reason: Patient Refused Heparin Sodium (Porcine) (Heparin Sodium,Porcine 5,000 Unit/Ml Vial) 5,000 unit SUBCUT Q8H [facility] Last Admin: 12/20/24 07:28 Dose: Not Given Documented By: RINA Non-Admin Reason: Patient Refused Hydrocortisone (Hydrocortisone 10 Mg Tablet) 15 mg PO BIDWM [facility] Last Admin: 12/20/24 07:28 Dose: Not Given Documented By: RINA Non-Admin Reason: Patient Refused Levetiracetam (Keppra) 1,000 mg in 100 mls @ 400 mls/hr IV Q12H [facility] Last Infusion: 12/20/24 11:45 Dose: Infused Documented By: RINA Levothyroxine Sodium (Levothyroxine Sodium 150 Mcg Tablet) 150 mcg PO DAILY@0600 [facility] Last Admin: 12/20/24 06:17 Dose: Not Given Documented By: REGINA Non-Admin Reason: Patient Refused Meropenem (Meropenem 1 Gm Vial) 1 gm IVPUSH Q12H [facility] Last Admin: 12/20/24 02:46 Dose: 1 gm Documented By: REGINA Labs 12/18/24 05:08 12/18/24 05:08 Assessment and Plan (1) UTI (urinary tract infection) due to urinary indwelling Heaton catheter: Status: Acute Plan 64M PMH copd, htn, adrenal insufficiency, schizoaffective disorder [facility] with ams, severe hypoxia, septic shock from uti and aspiratoin pneumonia, was admitted to ICU, intubated, on pressors. Patient was extubated on 11/29/2024 and downgraded to medical floor on 11/30/2024- Hospital course significant for intermittent agitation and refusal of care-went to icu on 12/08 after presumed seizure, hypotension, lactic acidosis-transferred back from ICU 12/10/24. discharge planned 12/12/24 but cancelled after another hypotensive/febrile episode 1.Acute metabolic encephalopathy, acute hypoxic respiratory failure due to aspiration pneumonia/urinary tract infection -ESBL UTI... meropenem 12/12/24 (7)...LD 12/21/24 -complete IV therapy inpatient 2.Seizure -IV Keppra as refusing p.o. 3.Adrenal insufficiency -stable and well compensated -continue steroids. 4.Acute kidney injury on CKD III -resolved. . . Baseline -follow renals/divalents 5.Schizoaffective disorder -continue lorazepam, Haldol, Depakote, Cogentin. Heparin subQ Full code reason for continued hospitalization:treating sepsis with mdr organism, end date 12/21/24 - unable to complete outpatient Quality Stroke Does the patient have a stroke diagnosis?: No VTE Prior VTE?: No VTE Risk Level:: Medical - low VTE Device Contraindication: N/A - Device Ordered VTE Drug Contraindication: N/A - Med Ordered
[2024-12-20 19:45] VITALS: BP 115/70; PULSE 89; RESP 18; TEMP 35.8
--- NOTE | 2024-12-21 03:04 | PC.NURSE ---
PT disruptive, yelling profanities loudly and being very restless. PO haldol is ordered but pt has been refusing all PO meds, one IM dose of haldol obtained and administered with great affect.
[2024-12-21 03:55] VITALS: BP 111/68; PULSE 73; RESP 18; TEMP 35.7; O2SAT 99
[2024-12-21 07:32] VITALS: BP 114/60; PULSE 70; RESP 20; TEMP 36.5; O2SAT 94
--- NOTE | 2024-12-21 11:16 | PM.DS ---
DS: Providers Provider Date of Service: 12/21/24 Date of admission: 11/28/24 17:25 Date of discharge: 12/21/24 Primary care physician: Fernando Medina MD Consults: 11/28/24 20:04 Consult to Urology Stat Consulting Provider: [facility] Reason for consultation: Bilat hydroureteronephrosis sepsis UTI Has provider been notified: No 11/28/24 20:05 Consult to General Surgery Stat Consulting Provider: [facility] Reason for consultation: acute apendicitis, sepsis shock Has provider been notified: No 12/02/24 11:19 Consult to Nephrology Routine Consulting Provider: [facility] Reason for consultation: clearance for midline 12/04/24 17:27 Consult to Psychiatry Routine Consulting Provider: [facility] Reason for consultation: interfereingwith medical treatments /schzophrenia Has provider been notified: No 12/05/24 12:23 Consult to Infectious Diseases Routine Consulting Provider: [facility] Reason for consultation: esbl uti Has provider been notified: No 12/08/24 08:07 Consult to Neurology Routine Consulting Provider: [facility] Reason for consultation: Seizure Has provider been notified: No 12/08/24 08:15 Consult for Sitter Routine Reason for consultation: Agitation Has provider been notified: No DS: Diagnosis Discharge Diagnosis (1) UTI (urinary tract infection) due to urinary indwelling Heaton catheter: Status: Acute DS: Summary Hospital Course Hospital Course: from initial hpi: 64-year-old gentleman with past medical history of COPD, hypertension, hypocortisolism, living in a longterm with risk of aspiration was found to have UTI, started on ceftriaxone 1g yesterday was found hypotensive and altered sensorium is transferred to ED where he was intubated and placed on ventilator support. Hypotensive started on levophed support. Difficulty in oxygenation. MICU consulted for adission. hospital course: Patient was admitted for septic shock and acute hypoxic respiratory failure due to urinary tract infection from ESBL E coli and aspiration pneumonia was admitted 11/28/2024 to the intensive care unit and intubated and placed on vasopressors, treated with meropenem. Extubated the next day and downgraded to medical floor on 11/30/2024, course was complicated by intermittent agitation refusal of care. On 12/08/2024 had episode of severe agitation possibly acute metabolic encephalopathy due to seizure with agitated postictal state. Patient had acute lactic acid of 11 which quickly resolved. Was readmitted to the intensive care unit for hypotension, downgraded back to medical floor on 12/10/2024. Mental status returned to baseline. Was seen by infectious disease who recommended holding off on further antibiotics especially given carbapenem lowering of seizure threshold. For history of adrenal insufficiency was continued on hydrocortisone. For acute kidney injury on CKD 3 creatinine returned to baseline of 1.5. For schizoaffective disorder was continued on lorazepam, Haldol, Depakote, Cogentin. For seizure disorder is on Depakote and Keppra has been added. For hypothyroid was continued levothyroxine. TSH was noted to be elevated to the 60s with a normal T4 unclear if had recent med adjustment, does not appear clinically hypothyroid should recheck TSH in 2 weeks. For chronic urinary retention chronic Heaton has been replaced. Urine culture grew out E coli ESBL sensitive only to ertapenem. Seen by Infectious Disease who recommended completing a 10 day course of meropenem. Patient is a behavioral issue and facility felt they could not handle him with IV meds. Given such she completed his course in-house in his now medically acceptable returned to SNF Time Attestation Discharge Coordination Time (in mins): 35 Quality: Safe Use of Opioids Does Pt have an Active Cancer Diagnosis on the Problem List?: No Quality: Stroke Does the patient have a stroke diagnosis?: No Physical Exam Vital Signs: Vital Signs: Last Vital Signs Temp 97.7 F 12/21/24 07:32 Pulse 70 12/21/24 07:32 Resp 20 12/21/24 07:32 BP 114/60 12/21/24 07:32 Pulse Ox 94 12/21/24 07:32 O2 Del Method Room Air 12/21/24 07:32 O2 Flow Rate 98 12/20/24 19:45 FiO2 24 11/29/24 13:31 BMI result Body Mass Index 21.5 Const: Other: Awake alert confused Resp: Other: Clear to auscultation bilaterally no rales rhonchi or wheezes Cardio: Other: No S4; positive S1-S2; no S3 murmurs rubs or gallops GI: Other: Soft nontender nondistended normoactive bowel sounds Extrem: Other: No edema bilaterally Discharge Plan Discharge Anticipated Discharge Date/Time: 12/12/24 10:32 Patient Disposition: Xfer LTC Discharge Diagnosis: sz. pna Referrals: [facility] [Outside] - 1 Week Referral Note: RESUMPTION OF VASCULAR PHYSICIAN CARE Fernando Medina MD [Primary Care Provider, Rheumatology] - 1 Week Discharge Medications: New levetiracetam 1,000 mg Tablet 1,000 mg PO BID Qty: 0 0RF Continued hydrocortisone 5 mg tablet 15 mg PO BEDTIME hydrocortisone 5 mg tablet 15 mg PO DAILY acetaminophen 325 mg Suppository 325 mg WI Q4H PRN (Reason: Constipation) acetaminophen 325 mg Tablet 975 mg PO Q6H PRN (Reason: Pain) benztropine 0.5 mg tablet 0.5 mg PO BID ipratropium-albuterol 0.5 mg-3 mg(2.5 mg base)/3 mL Solution For Nebulization 3 ml INHALATION Q6H PRN (Reason: Shortness Of Breath Or Wheezing) haloperidol 5 mg tablet 15 mg PO TID trazodone 50 mg tablet 25 mg PO BID naloxone 0.4 mg/mL Solution 0.4 mg SUBCUT Q2M PRN (Reason: Opiate Reversal) Rx Instructions: NTExceed 10 mg total dose/episode thiamine HCl (vitamin B1) 100 mg Tablet 100 mg PO DAILY divalproex 500 mg tablet,delayed release (DR/EC) 1,000 mg PO BID liothyronine 5 mcg tablet 5 mcg PO DAILY aspirin 81 mg Tablet,Delayed Release (Dr/Ec) 81 mg PO DAILY famotidine 20 mg Tablet 20 mg PO DAILY lorazepam 0.5 mg tablet 0.5 mg PO TID magnesium hydroxide [Milk of Magnesia] 400 mg/5 mL Suspension 30 ml PO DAILY PRN (Reason: Constipation) simvastatin 5 mg tablet 5 mg PO BEDTIME bisacodyl 10 mg Suppository 10 mg WI DAILY PRN (Reason: Constipation) levothyroxine 150 mcg tablet 150 mcg PO DAILY@0600 [place] Enema 19-7 gram/118 mL Enema 118 ml WI DAILY PRN (Reason: Constipation) albuterol sulfate [Ventolin HFA] 90 mcg/actuation HFA aerosol inhaler 2 puff inhalation Q6H PRN (Reason: Shortness Of Breath Or Wheezing) naloxone 4 mg/actuation [place],Non-Aerosol 4 mg INTRANASAL Q3M PRN (Reason: Opiate Reversal) Rx Instructions: spray 1 dose into ONE nostril; alternate nostrils w each dose until help arrives Discontinued doxycycline hyclate 100 mg capsule 100 mg PO BID Rx Instructions: end date 12/09/24 azithromycin 250 mg tablet 500 mg PO DAILY Rx Instructions: end date 11/30/24 azithromycin 250 mg tablet 250 mg PO DAILY Rx Instructions: end date 12/04/24 ceftriaxone 1 gram Recon Soln 1 g IM DAILY Rx Instructions: end date 11/29/24 Discharge Orders: Discharge Order (Routine); Ordered 12/21/24 Ordered By: Sharad Montelongo Diet: Advance to usual diet Activity on Discharge: As tolerated Stand Alone Forms: Patient Portal Discharge page Print Language: Latvian Care Plan Goals: recovery Health Concerns: seziures, aspriation, elevated tsh Plan of Treatment: NDD3 solids, thin liquids, started keppra, recheck tsh in 2 weeks Assessment: see above
--- NOTE | 2024-12-21 11:39 | MHC.CM.PN ---
PT CLEARED TO RETURN TO [facility] TODAY CM INFORMED SNF YESTERDAY AND SENT DCS VIA [facility] TODAY GUARDIAN, BLANCA KAUR [phone], NOTIFIED OF DC VIA T/C MEDICARE RIGHTS REVIEWED, COPY WILL BE SENT WITH PT BACK TO SNF
[2024-12-21 13:01] VITALS: BP 112/56; PULSE 87; RESP 20; TEMP 36.1; O2SAT 96
== END 2024-12-21 14:00 | DRG 871 ==
LOC: HO.ED 17:24 → HO.EDOVER 17:37 → HO.ICU 17:53 → HO.IMC 11-30 15:23 → HO.ICU 12-08 11:44 → HO.S3 12-10 15:12
PROVIDERS: Internal Medicine; Internal Medicine Critical Care Medicine; Internal Medicine Pulmonary Disease; Physician Assistant Medical; Admitting Provider Internal Medicine Critical Care Medicine; Emergency Provider Emergency Medicine; PCP Internal Medicine Rheumatology; Visit Provider Hospitalist
DX: A41.9 Sepsis, unspecified organism (principal); G93.41 Metabolic encephalopathy; J69.0 Pneumonitis due to inhalation of food and vomit; N17.0 Acute kidney failure with tubular necrosis; J96.01 Acute respiratory failure with hypoxia; R65.21 Severe sepsis with septic shock; J44.1 Chronic obstructive pulmonary disease with (acute) exacerbation; N13.6 Pyonephrosis; E27.40 Unspecified adrenocortical insufficiency; Z16.12 Extended spectrum beta lactamase (ESBL) resistance; E03.9 Hypothyroidism, unspecified; F25.9 Schizoaffective disorder, unspecified; R56.9 Unspecified convulsions; I12.9 Hypertensive chronic kidney disease with stage 1 through stage 4 chronic kidney disease, or unspecified chronic kidney disease; R13.10 Dysphagia, unspecified; D63.1 Anemia in chronic kidney disease; N18.30 Chronic kidney disease, stage 3 unspecified; Z20.822 Contact with and (suspected) exposure to COVID-19; Z91.148 Patient's other noncompliance with medication regimen for other reason; Z87.440 Personal history of urinary (tract) infections; Z79.82 Long term (current) use of aspirin; Z79.890 Hormone replacement therapy; Z79.899 Other long term (current) drug therapy
CPT/HCPCS: 36410; 36415; 70450; 71045; 71250; 74176; 80048; 80053; 80076; 80164; 81001; 82040; 82140; 82803; 82947; 83605; 83735; 84100; 84439; 84443; 84484; 85025; 85027; 87040; 87086; 87088; 87186; 87633; 87640; 87641; 92526; 92610; 93005; 94002; 94003; 95816; 99285; C1751; J0330; J0360; J1171; J1308; J1630; J1644; J1720; J1953; J2003; J2185; J2250; J2359; J3010; J3360; J7120; P9047

== ENCOUNTER → 2024-11-28 16:49 | Outpatient (BNV) | payer MEDICARE, MEDICAID, SELFPAY | PROVIDERS: Admitting Provider Internal Medicine Critical Care Medicine; Emergency Provider Emergency Medicine; PCP Internal Medicine Rheumatology; Visit Provider Radiology Diagnostic Radiology | DX: J18.9 Pneumonia, unspecified organism (principal); Z43.0 Encounter for attention to tracheostomy; N13.30 Unspecified hydronephrosis; R40.20 Unspecified coma | CPT/HCPCS: 70450; 71045; 71250; 74176 ==

== ENCOUNTER 2024-11-28 17:25 | Outpatient (BNV) | payer MEDICARE, MEDICAID, SELFPAY | END 2024-12-06 15:07 | PROVIDERS: Admitting Provider Internal Medicine Critical Care Medicine; Emergency Provider Emergency Medicine; PCP Internal Medicine Rheumatology | DX: Z45.2 Encounter for adjustment and management of vascular access device (principal) | CPT/HCPCS: 36410; 76937; 77001 ==

== ENCOUNTER 2024-11-28 17:25 | Outpatient (BNV) | payer MEDICARE, MEDICAID, SELFPAY | END 2024-12-11 11:00 | PROVIDERS: Admitting Provider Internal Medicine Critical Care Medicine; Emergency Provider Emergency Medicine; PCP Internal Medicine Rheumatology; Visit Provider Psychiatry & Neurology Neurology | DX: R94.01 Abnormal electroencephalogram [EEG] (principal) | CPT/HCPCS: 95816 ==

== ENCOUNTER 2024-11-28 17:25 | Outpatient (BNV) | payer MEDICARE, MEDICAID, SELFPAY | END 2024-12-07 | PROVIDERS: Admitting Provider Internal Medicine Critical Care Medicine; Emergency Provider Emergency Medicine; PCP Internal Medicine Rheumatology; Visit Provider Internal Medicine | DX: Z13.6 Encounter for screening for cardiovascular disorders (principal) | CPT/HCPCS: 93010 ==

== ENCOUNTER 2024-11-28 17:25 | Outpatient (BNV) | payer MEDICARE, MEDICAID, SELFPAY | END 2024-12-08 10:00 | PROVIDERS: Admitting Provider Internal Medicine Critical Care Medicine; Emergency Provider Emergency Medicine; PCP Internal Medicine Rheumatology; Visit Provider Radiology Diagnostic Radiology | DX: R56.9 Unspecified convulsions (principal); R06.00 Dyspnea, unspecified | CPT/HCPCS: 70450; 71045 ==

== ENCOUNTER → 2024-11-28 17:25 | Outpatient (BNV) | payer MEDICARE, MEDICAID, SELFPAY | PROVIDERS: Admitting Provider Internal Medicine Critical Care Medicine; Emergency Provider Emergency Medicine; PCP Internal Medicine Rheumatology; Visit Provider Urology | DX: A41.9 Sepsis, unspecified organism (principal); R65.21 Severe sepsis with septic shock; T83.511A Infection and inflammatory reaction due to indwelling urethral catheter, initial encounter; N39.0 Urinary tract infection, site not specified | CPT/HCPCS: 99222 ==

== ENCOUNTER → 2024-11-28 17:25 | Outpatient (BNV) | payer MEDICARE, MEDICAID, SELFPAY | PROVIDERS: Admitting Provider Internal Medicine Critical Care Medicine; Emergency Provider Emergency Medicine; PCP Internal Medicine Rheumatology; Visit Provider Psychiatry & Neurology Neurology | DX: F20.9 Schizophrenia, unspecified (principal); G93.40 Encephalopathy, unspecified | CPT/HCPCS: 99222 ==

== ENCOUNTER → 2024-11-28 17:25 | Outpatient (BNV) | payer MEDICARE, MEDICAID, SELFPAY | PROVIDERS: Admitting Provider Internal Medicine Critical Care Medicine; Emergency Provider Emergency Medicine; PCP Internal Medicine Rheumatology; Visit Provider Surgery | DX: A41.9 Sepsis, unspecified organism (principal); R65.21 Severe sepsis with septic shock; J96.01 Acute respiratory failure with hypoxia | CPT/HCPCS: 99222 ==

== ENCOUNTER → 2024-11-28 17:25 | Outpatient (BNV) | payer MEDICARE, MEDICAID, SELFPAY | PROVIDERS: Admitting Provider Internal Medicine Critical Care Medicine; Emergency Provider Emergency Medicine; PCP Internal Medicine Rheumatology; Visit Provider Internal Medicine | DX: R56.9 Unspecified convulsions (principal); T83.511A Infection and inflammatory reaction due to indwelling urethral catheter, initial encounter; N39.0 Urinary tract infection, site not specified | CPT/HCPCS: 99231; 99232; 99233; 99499 ==

== ENCOUNTER → 2024-11-28 17:25 | Outpatient (BNV) | payer MEDICARE, MEDICAID, SELFPAY | PROVIDERS: Admitting Provider Internal Medicine Critical Care Medicine; Emergency Provider Emergency Medicine; PCP Internal Medicine Rheumatology; Visit Provider Registered Nurse | DX: F20.9 Schizophrenia, unspecified (principal) | CPT/HCPCS: 99222 ==

== ENCOUNTER → 2024-11-28 17:25 | Outpatient (BNV) | payer MEDICARE, MEDICAID, SELFPAY | PROVIDERS: Admitting Provider Internal Medicine Critical Care Medicine; Emergency Provider Emergency Medicine; PCP Internal Medicine Rheumatology; Visit Provider Internal Medicine Critical Care Medicine | DX: A41.9 Sepsis, unspecified organism (principal); R65.21 Severe sepsis with septic shock; N17.9 Acute kidney failure, unspecified; G93.40 Encephalopathy, unspecified; J96.01 Acute respiratory failure with hypoxia; J44.1 Chronic obstructive pulmonary disease with (acute) exacerbation; J18.9 Pneumonia, unspecified organism | CPT/HCPCS: 99291 ==

== ENCOUNTER → 2024-11-28 17:25 | Outpatient (BNV) | payer MEDICARE, MEDICAID, SELFPAY | PROVIDERS: Admitting Provider Internal Medicine Critical Care Medicine; Emergency Provider Emergency Medicine; PCP Internal Medicine Rheumatology; Visit Provider Internal Medicine | DX: F20.9 Schizophrenia, unspecified (principal); R11.10 Vomiting, unspecified | CPT/HCPCS: 99222 ==

== ENCOUNTER → 2024-11-28 17:25 | Outpatient (BNV) | payer MEDICARE, MEDICAID, SELFPAY | PROVIDERS: Admitting Provider Internal Medicine Critical Care Medicine; Emergency Provider Emergency Medicine; PCP Internal Medicine Rheumatology; Visit Provider Internal Medicine Pulmonary Disease | DX: N17.9 Acute kidney failure, unspecified (principal); T83.511A Infection and inflammatory reaction due to indwelling urethral catheter, initial encounter; N39.0 Urinary tract infection, site not specified; F20.9 Schizophrenia, unspecified | CPT/HCPCS: 99232 ==